=== PATIENT | male | born 1975 | race Caucasian/White ===

== ENCOUNTER 2024-11-30 20:11 | Observation (INO) ==
--- NOTE | 2024-11-30 20:58 | Emergency Department Note ---
Impression & Plan Pulmonary embolism, Acute deep vein thrombosis of upper extremity, Thrombocytosis, Pseudohyponatremia, Acute hyperglycemia, Hypoalbuminemia ED Provider Note NAME: ANABELLA QUEEN AGE: 49 SEX: M : 1975 ARRIVES VIA: Walk-In INFORMANT: Patient, family ED PROVIDER(S): Germán Adkins DO CHIEF COMPLAINT: chest pain HPI: This is a 49-year-old male with the PMHx of tobacco use disorder and chronic back pain presenting to [facility] for further evaluation of right-sided shoulder and chest pain. Patient is accompanied by his family who provide additional history. Patient states he has had worsening right posterior shoulder pain that now radiates into the anterior chest wall on the right. Patient states that he was seen in [facility] overnight. He states that he had 2 syncopal episodes leading to the evaluation in the emergency department. He states that he was told that he had a blood clot that was moving towards his lungs. He states they recommended to admit him but he wanted to come here instead They deny fever or chills. No cough or congestion. Denies chest pain or palpitations. No shortness of breath. They deny abdominal pain, nausea and vomiting. No urinary complaints. No recent changes in bowel movements. Patient denies recent changes in medications or OTC supplements. Patient offers no other complaints, today. ADDITIONAL HISTORY OBTAINED: Per HPI Chronic Medical/Social Conditions Affecting Care: Per HPI PAST MEDICAL HISTORY: See Below PAST SURGICAL HISTORY: See Below FAMILY HISTORY: See Below SOCIAL HISTORY: See Below HOME MEDICATIONS: See Below ALLERGIES: See Below VITALS: See Below PHYSICAL EXAMINATION: GENERAL: Sitting up in bed, alert, well appearing, well nourished, no distress, non-toxic EYE EXAM: normal conjunctiva. PERRL and EOM's grossly intact. OROPHARYNX: no exudate, no erythema, lips, buccal mucosa, and tongue normal and mucous membranes are moist NECK: supple, no nuchal rigidity, no adenopathy, non-tender LUNGS: Clear to auscultation. Normal chest wall mechanics HEART: no murmurs, tachycardic rate, regular rhythm ABDOMEN: abdomen soft, non-tender, no masses, no rebound or guarding. BACK: Back is symmetrical on inspection and there is no deformity, no midline tenderness, no CVA tenderness. SKIN: no rashes and no bruising UPPER EXTREMITIES: upper extremities are grossly normal. LOWER EXTREMITIES: No pitting edema. NEURO EXAM: Normal sensorium, GCS 15, normal speech, no gross weakness of arms, no gross weakness of legs. MEDICAL DECISION MAKING: Differential diagnoses includes but not limited to ACS, stable vs unstable angina, dysrhythmia, viral URI, pneumonia, pericarditis, pneumothorax, costochondritis, MSK strain, PE, hypertensive emergency, psychological causes, esophageal reflux, gastritis In summary, this is a 49 year old male who presented with chest pain. Differential as above. Nursing notes and pertinent past medical records reviewed. Vital signs reviewed and the patient is borderline hypotensive and tachycardic. The patient is otherwise afebrile and hemodynamically stable. He appears in no acute respiratory distress. History and presentation revealed recent evaluation at [facility]. Physical examination revealed as above. As a result of my initial evaluation, we will plan to repeat CT PE study today given concerns for possible pulmonary embolism as well as basic lab work. I have requested records via the ED private secretary from [facility] regarding his visit last night. Diagnostics interpreted by me include EKG and cardiac monitoring as listed below: -Cardiac Monitoring: An order was placed for continuous cardiac monitoring. The monitor shows a rate of [] with [] rhythm. -ECG: EKG independently turbid by me reveals sinus tachycardia at a rate of [address] segment changes to suggest STEMI. Intervals are otherwise within normal limits. Patient completed laboratory studies and imaging. Results independently interpreted by me are mild leukocytosis, anemia and thrombocytosis. No coagulopathy otherwise. Patient does have pseudohyponatremia secondary to hyperglycemia. Mild elevation in alkaline phosphatase. LFTs are otherwise within normal limits. Hypoalbuminemia present. Electrolytes are otherwise unremarkable. Troponin and BNP are reassuring. The patient was managed with IV fentanyl for pain control with improvement on reevaluation. Stat rad did place a phone call to me and we discussed the case. Patient has a right upper extremity DVT within the brachial vein. Also has a right lower lobe pulmonary embolism without evidence of right heart strain. Given the patient's borderline hypotension as well as tachycardia and chest pain, I am concerned that he has severe symptoms regarding his pulmonary embolism. See PESI score below. As well as coagulopathy and thrombocytosis, there are multiple indications for admission. PESI Score Age: 49 Male gender: 10 pt History of cancer: 30 pt Heart failure: 0 Chronic lung disease: 0 Pulse >=100/min: 20 pt Systolic blood pressure <100 mmH pt Respiratory rate >=0/min: 0 Temperature <36 Celcius: 0 Altered mental status: 0 Arterial oxygen saturation <90 percent: 0 Total: 90 Class I Low risk <66 Class II 66 to 85 Class III High risk 86 to 105 Class IV 106 to 125 Class V >125 Outside records from [facility] and independently reviewed by me including ED documentation. It appears the patient had arrived for multiple syncopal episodes and has been dealing with acute on chronic back pain. Pain has been severe. The patient was borderline hypotensive as well as tachycardic at that visit. Labs reviewed showed a mild lactic acidosis as well as pseudohyponatremia, anemia, thrombocytosis and hyperglycemia. MDM documentation from the outside facility shows that the patient was found to have an acute right sided pulmonary embolism as well as DVT as well as concerns for possible metastatic cancer on the CT abdomen. The patient ultimately signed out AGAINST MEDICAL ADVICE while at [facility]. CT abdomen of the pelvis interpretation includes nodularity of the anterior omentum concerning for carcinomatosis/malignancy as well as diffuse mesenteric and retroperitoneal lymph nodes. Heparin infusion with bolus was started for DVT/PE. Ultimately, the decision was made to admit the patient for acute pulmonary embolism as well as upper extremity DVT and significant thrombocytosis with concerns for metastatic cancer in the abdomen. I discussed the case with the hospitalist service via telephone/[employer] and they are agreeable to admit the patient to their services by Dr. Lopez. Based on the above, including the patient's age, coexisting illnesses, labs, imaging, and exam findings the decision to treat as an inpatient. I discussed the patient with the hospitalist team who recommended admission to their services. They received the medications, treatments, interventions indicated above and their condition remained guarded. I discussed my findings with the patient and their family and they understand and agree with the treatment plan. All patient / family questions were answered to their satisfaction. Consults/Care Managements Discussions: Per MDM ER treatment provided: See above Procedures:none Critical Care: I have personally spent 40 minutes of critical care time in direct management of this patient. This includes bedside care, interpretation of diagnostic studies, and testing, discussion with consultants, patient, and family members, and other require inpatient management activities. This 40 minutes is in excess of all separately billable procedures. The chart was completed utilizing [employer] Speech voice recognition software. Grammatical errors, random word insertions, pronoun errors, and incomplete sentences are an occasional consequence of this system due to software limitations, ambient noise, and hardware issues. Any formal questions or concerns about the content, text, or information contained within the body of this dictation should be directly addressed to the physician for clarification. Past Med/Surg History Problem List Hypoalbuminemia (Acute) Acute hyperglycemia (Acute) Pseudohyponatremia (Acute) Thrombocytosis (Acute) Acute deep vein thrombosis of upper extremity (Acute) Pulmonary embolism (Acute) Back pain (Acute) Left leg weakness (Acute) Acute lumbar radiculopathy (Acute) Back pain (Acute) Encounter for pre-operative examination Medical History DM type 2 (diabetes mellitus, type 2) HLD (hyperlipidemia) Chronic left-sided low back pain Surgical History History of tooth extraction History of inguinal hernia repair History of colonoscopy Family History Other No family history of adverse response to anesthesia Social History Smoking Status: Current every day smoker Tobacco Type: Cigarettes Cigarettes Per Day: 1 ppd; Second Hand Exposure: Yes ( smokes); Do You Dip or Chew Tobacco: No (quit); Hx Alcohol Use: Yes Hx Substance Use: No Preferred Language: Sami Communication Ability: Effective [employer]allurg[employer] Laboratory Technician Required: No Beliefs That Will Affect Care: None Current Living Situation: Family Feels Safe at Home: Yes Assistive Devices: Denture - Upper, Glasses and Walker Allergies Allergies Allergy/AdvReac Type Severity Reaction Status Date / Time No Known Allergies Allergy Verified 08/20/24 19:50 Home Meds Home Medications Medication Instructions Recorded Confirmed pravastatin 20 mg tablet 20 mg PO QAM 05/17/22 11/30/24 metformin 500 mg tablet,extended 500 mg PO BIDM 05/11/24 11/30/24 release 24 hr acetaminophen 500 mg tablet 1,000 mg PO Q6H PRN PAIN/FEVER 08/20/24 11/30/24 (Tylenol Extra Strength) insulin glargine U-300 conc 300 30 unit subcut HS 11/19/24 11/30/24 unit/mL (3 mL) subcutaneous pen (Toujeo Max U-300 SoloStar) omeprazole 20 mg capsule,delayed 20 mg PO QAM 11/19/24 11/30/24 release duloxetine 60 mg capsule,delayed 60 mg PO BID 11/30/24 11/30/24 release oxycodone-acetaminophen 5 mg-325 1 tab PO Q6 PRN pain,severe 11/30/24 11/30/24 mg tablet (Percocet) Results & Data (ED) Vital Signs Vital Signs - 24 hr 11/30/24 20:14 11/30/24 20:23 11/30/24 20:33 Temperature 36.7 C Temperature Source Oral Pulse Rate 133 H 113 H 114 H Pulse Rate [Left Apical] Respiratory Rate 20 16 Respiratory Effort / Characteristics Non-Labored Spontaneous Respiratory Depth Normal Respiratory Pattern Regular Blood Pressure 99/59 L Blood Pressure [Right Arm] Blood Pressure Mean 72 Blood Pressure Mean [Right Arm] Blood Pressure Position Sitting Pulse Oximetry 100 98 Oxygen Delivery Method Room Air Room Air Sepsis Recent Fever Within 48 Hours No Sepsis New/Unexplained Change in Mental Status N/A Sepsis Action Taken by Nursing No Action Required 11/30/24 21:37 11/30/24 22:48 11/30/24 22:50 Temperature Temperature Source Pulse Rate Pulse Rate [Left Apical] 113 H 105 H Respiratory Rate 14 15 Respiratory Effort / Characteristics Non-Labored Spontaneous Non-Labored Spontaneous Respiratory Depth Normal Normal Respiratory Pattern Regular Regular Blood Pressure Blood Pressure [Right Arm] 108/73 104/71 Blood Pressure Mean Blood Pressure Mean [Right Arm] 84 82 Blood Pressure Position Pulse Oximetry 95 94 Oxygen Delivery Method Room Air Room Air Room Air Sepsis Recent Fever Within 48 Hours Sepsis New/Unexplained Change in Mental Status Sepsis Action Taken by Nursing 11/30/24 23:30 12/01/24 00:00 12/01/24 00:18 Temperature Temperature Source Pulse Rate 103 H 106 H 118 H Pulse Rate [Left Apical] Respiratory Rate 20 18 Respiratory Effort / Characteristics Respiratory Depth Respiratory Pattern Blood Pressure 123/74 117/72 Blood Pressure [Right Arm] Blood Pressure Mean 81 89 Blood Pressure Mean [Right Arm] Blood Pressure Position Pulse Oximetry 93 95 Oxygen Delivery Method Sepsis Recent Fever Within 48 Hours Sepsis New/Unexplained Change in Mental Status Sepsis Action Taken by Nursing 12/01/24 01:00 Temperature Temperature Source Pulse Rate 108 H Pulse Rate [Left Apical] Respiratory Rate 16 Respiratory Effort / Characteristics Respiratory Depth Respiratory Pattern Blood Pressure 121/71 Blood Pressure [Right Arm] Blood Pressure Mean 87 Blood Pressure Mean [Right Arm] Blood Pressure Position Pulse Oximetry 94 Oxygen Delivery Method Sepsis Recent Fever Within 48 Hours Sepsis New/Unexplained Change in Mental Status Sepsis Action Taken by Nursing Laboratory Data 11/30/24 20:33 11/30/24 20:33 Lab Results 11/30/24 11/30/24 Range/Units 20:33 21:07 WBC 12.98 H (4.8-10.8) K/ul RBC 4.08 L (4.70-6.10) M/uL Hgb 8.2 L (14.0-18.0) g/dl Hct 27.7 L (42.0-52.0) % MCV 67.9 L (80.0-100.0) fL MCH 20.1 L (25.0-34.0) pg MCHC 29.6 L (32.0-36.0) g/dL RDW Std Deviation 41.3 (36.4-46.3) fL RDW Coeff of Cheng 17.2 H (11.5-14.5) % Plt Count 1060 H* (130-400) K/uL MPV 8.5 L (9.4-12.4) fL Immature Gran % (Auto) 0.8 % Neut % (Auto) 76.8 % Lymph % (Auto) 12.2 % [place] % (Auto) 9.7 % Eos % (Auto) 0.3 % Baso % (Auto) 0.2 % Neut # (Auto) 9.95 H (1.40-6.50) K/uL Lymph # (Auto) 1.59 (1.20-3.40) K/uL [place] # (Auto) 1.26 H (0.11-0.59) K/uL Eos # (Auto) 0.04 (0.00-0.50) K/uL Baso # (Auto) 0.03 (0.00-0.20) K/uL Immature Gran # (Auto) 0.11 (0.01-0.20) K/uL Polychromasia 1+ Microcytosis Present PT 11.9 (9.0-12.0) Seconds INR 1.1 (0.9-1.1) APTT 35 H (21-31) Seconds PTT Ratio 1.3 VBG pH 7.44 H (7.36-7.41) VBG pCO2 41 (38-50) mmHg VBG pO2 28 mmHg VBG HCO3 28 mmol/L VBG O2 Saturation < 60.0 % VBG Base Excess 3.3 mEq/L Sodium 132 L (136-145) mmol/L Potassium 4.2 (3.5-5.1) mmol/L Chloride 92 L (98-107) mmol/L Carbon Dioxide 26 (21-32) mmol/L Anion Gap 14 H (3-11) BUN 7 (6-23) mg/dl Creatinine 0.60 (0.6-1.4) mg/dl Est Cr Clr Drug Dosing Not Reportable eGFR 119.82 BUN/Creatinine Ratio 11.7 (10-20) Glucose 279 H (70-99(Fasting)) mg/dl Calcium 8.9 (8.6-10.3) mg/dl Magnesium 1.8 (1.7-2.4) mg/dl Total Bilirubin 0.3 (0.2-1.0) mg/dl AST 28 (13-39) U/L ALT 33 (7-52) U/L Alkaline Phosphatase 241 H (34-104) U/L Troponin I High Sens 4.8 (0-20) pg/ml B-Natriuretic Peptide 44 (0-100) pg/ml Total Protein 7.5 (6.0-8.3) gm/dl Albumin 2.6 L (3.4-5.0) gm/dl Globulin 4.9 H (2.5-4.0) gm/dl Albumin/Globulin Ratio 0.5 L (0.9-2) Lipase 13 (11-82) U/L Administered Medications Discontinued Medications Fentanyl Citrate (Fentanyl Citrate Pf 100 Mcg/2 Ml Vial) 75 mcg IV NOW STA Stop: 11/30/24 21:32 Last Admin: 11/30/24 21:38 Dose: 75 mcg Documented By: [facility] Heparin Sodium (Porcine) (Heparin Sod (Porcine) 1000 Unit/Ml) 1 units IV NOW ONE Stop: 12/01/24 00:48 Last Admin: 12/01/24 02:26 Dose: Not Given Documented By: AMELIE Sodium Chloride (Nss) 1,000 mls @ 100 mls/hr IV .Q10H ONE Stop: 12/01/24 10:53 Last Admin: 12/01/24 01:04 Dose: Not Given Documented By: ANGE Ioversol (Optiray 320 125ml) 115 ml IV ONCE ONE Stop: 11/30/24 21:48 Last Admin: 11/30/24 21:47 Dose: 115 ml Documented By: HUA Imaging Data Radiologist's Impression: Chest X-Ray 11/30/24 20:20 Chest radiograph, one view History: Chest pain Comparison: None Findings: Single AP view of the chest performed. No focal consolidation or pleural effusion. No pneumothorax. The cardiomediastinal silhouette is within normal limits. Normal pulmonary vascularity. No evidence for lymphadenopathy. No visualized bony or soft tissue abnormality. Impression: Normal chest radiograph Electronically signed by Terrance Brock 11-30-2024 8:57 PM Chest CTA 11/30/24 20:45 CR Exam(s): CTA CHEST IV Amt: 115 ml optiray 320 EXAM: CT Angiography Chest With Intravenous Contrast CLINICAL HISTORY: Reason for exam: PE. TECHNIQUE: Axial computed tomographic angiography images of the chest with intravenous contrast. CTDI is 19.99 mGy and DLP is 690.49 mGy-cm. Automated exposure control was utilized for the study. A dose lowering technique was utilized adhering to the principles of ALARA. MIP reconstructed images were created and reviewed. COMPARISON: No relevant prior studies available. FINDINGS: Pulmonary arteries: Acute subsegmental PE in the right lower lobe. Aorta: No acute findings. Normal caliber. No dissection. Other veins: Fat stranding around the right brachial vein suspicious for DVT. Lungs: Atelectasis in the right lower lobe. No pulmonary infarct or consolidation. Pleural space: No pleural effusion. No pneumothorax. Heart: RV to LV ratio less than 1. Small pericardial effusion. Bones/joints: No acute fracture. Soft tissues: Soft tissue edema in the right axilla.. Lymph nodes: Unremarkable. IMPRESSION: 1. Acute subsegmental PE in the right lower lobe. 2. No evidence of right heart strain. 3. Small pericardial effusion. 4. Fat stranding around the right brachial vein suspicious for DVT. Recommend right upper extremity duplex ultrasound. Communications: Call Doctor Pulmonary Embolism Electronically signed by: Jone Gomez MD 11/30/24 23:55 PM Discharge Plan Visit Data Chief Complaint: Chest Pain Stated Complaint: RIGHT SHOULDER PAIN,CHEST PAIN ED Provider: Germán Adkins Discharge Problem: Pulmonary embolism, Acute deep vein thrombosis of upper extremity, Thrombocytosis, Pseudohyponatremia, Acute hyperglycemia, Hypoalbuminemia Patient Disposition: Admitted As Inpatient Condition: Serious Discharge Instructions Interventions: ED Discharge Assessment Last Done: 12/01/24 01:32
[2024-11-30 21:13] LABS: Alanine Aminotransferase 33 U/L (7-52); Albumin Globulin Ratio 0.5 (0.9-2); Alkaline Phosphatase 241 U/L (34-104); Anion Gap 14 (3-11); Bilirubin,Total 0.3 mg/dl (0.2-1.0); Blood Urea Nitrogen 7 mg/dl (6-23); Calcium 8.9 mg/dl (8.6-10.3); Carbon Dioxide 26 mmol/L (21-32); Chloride 92 mmol/L (98-107); Globulin 4.9 gm/dl (2.5-4.0); Glucose 279 mg/dl (70-99(Fasting)); Lipase 13 U/L (11-82); Potassium 4.2 mmol/L (3.5-5.1); Sodium 132 mmol/L (136-145); Total Protein 7.5 gm/dl (6.0-8.3)
[2024-11-30 21:25] LABS: Base Excess VBG 3.3 mEq/L; HCO3 VBG 28 mmol/L; Oxygen Saturation VBG < 60.0 %; PCO2 VBG 41 mmHg (38-50); PO2 VBG 28 mmHg; pH VBG 7.44 (7.36-7.41)
[2024-11-30 21:29] LABS: Hematocrit (blood only) 27.7 % (42.0-52.0); Hemoglobin 8.2 g/dl (14.0-18.0); Immature Granulocytes # (auto) 0.11 K/uL (0.01-0.20); Immature Granulocytes % (auto) 0.8 %; Mean Corpuscular Hemoglobin 20.1 pg (25.0-34.0); Mean Corpuscular Volume 67.9 fL (80.0-100.0); RDW Standard Deviation 41.3 fL (36.4-46.3); Red Blood Count 4.08 M/uL (4.70-6.10); White Blood Count 12.98 K/ul (4.8-10.8)
[2024-11-30 21:41] LABS: Platelet Count 1060 K/uL (130-400)
[2024-11-30] MEDS: OPTIRAY 320 125ml IV ONE (21:47)
[2024-11-30 21:48] LABS: INR 1.1 (0.9-1.1); Partial Thromboplastin Time 35 Seconds (21-31); Prothrombin Time 11.9 Seconds (9.0-12.0)
[2024-11-30 22:10] LABS: Microcytosis Present; Polychromasia 1+
--- NOTE | 2024-11-30 23:56 | CT Scan Report ---
Exam(s): CTA CHEST IV Amt: 115 ml optiray 320 EXAM: CT Angiography Chest With Intravenous Contrast CLINICAL HISTORY: Reason for exam: PE. TECHNIQUE: Axial computed tomographic angiography images of the chest with intravenous contrast. CTDI is 19.99 mGy and DLP is 690.49 mGy-cm. Automated exposure control was utilized for the study. A dose lowering technique was utilized adhering to the principles of ALARA. MIP reconstructed images were created and reviewed. COMPARISON: No relevant prior studies available. FINDINGS: Pulmonary arteries: Acute subsegmental PE in the right lower lobe. Aorta: No acute findings. Normal caliber. No dissection. Other veins: Fat stranding around the right brachial vein suspicious for DVT. Lungs: Atelectasis in the right lower lobe. No pulmonary infarct or consolidation. Pleural space: No pleural effusion. No pneumothorax. Heart: RV to LV ratio less than 1. Small pericardial effusion. Bones/joints: No acute fracture. Soft tissues: Soft tissue edema in the right axilla.. Lymph nodes: Unremarkable. IMPRESSION: 1. Acute subsegmental PE in the right lower lobe. 2. No evidence of right heart strain. 3. Small pericardial effusion. 4. Fat stranding around the right brachial vein suspicious for DVT. Recommend right upper extremity duplex ultrasound. Communications: Call Doctor Pulmonary Embolism Electronically signed by: Jone Gomez MD 11/30/24 23:55 PM
[2024-12-01] MEDS: SODIUM CHLORIDE 0.9% 1,000 ML IV ONE (01:04)
[2024-12-01 01:14] LABS: Magnesium 1.8 mg/dl (1.7-2.4)
[2024-12-01] MEDS ORDERED: CARBOHYDRATES FOR HYPOGLYCEMIA PO PRN (01:31)
[2024-12-01] MEDS ORDERED: GLUCAGON FOR INJ 1 MG VIAL SQ PRN (01:31)
[2024-12-01] MEDS ORDERED: DEXTROSE 50% 50 ML SYRINGE IV PRN (01:31)
[2024-12-01] MEDS ORDERED: GLUCOSE 40% GEL 15 GM TUBE PO PRN (01:31)
[2024-12-01] MEDS ORDERED: GLUCOSE 10 TAB/TUBE PO PRN (01:31)
[2024-12-01] MEDS ORDERED: PROMETHAZINE 6.25 MG/50.25 ML BAG IV PRN (01:59)
[2024-12-01] MEDS ORDERED: ACETAMINOPHEN 500 MG TAB PO PRN (02:00)
--- NOTE | 2024-12-01 02:10 | History & Physical Report ---
Date of Service December 01, 2024 Assessment & Plan (1) Pulmonary embolism: Plan: Assessment and plan below following discussion of case with ED provider and reviewing patient history/pertinent normal/abnormal diagnostic test results. PE/upper extremity DVT First occurrence Likely from metastatic cancer, ? Prostate primary Pericardial effusion on imaging Worsening lumbar radiculopathy, history of back surgery ? Secondary to malignancy DM 2 insulin requiring, elevated BSG, unknown control Progressive anemia; leukocytosis, thrombocytosis possibly from bone marrow infiltration of malignancy ongoing tobacco abuse Admit to med/tele IV heparin Oncology consultation RE PE in the setting of probable metastatic cancer, bone marrow infiltration on imaging Check PSA TTE re: pericardial effusion Lumbar spine MRI re: worsening back pain Orthopedic spine consult (Patient known to Dr. Kang of [facility] and has a scheduled outpatient appointment this week.) Basal insulin, ISS BG goal 110-140, carb count coverage, check hemoglobin A1c Nicotine patch as needed DVT prophylaxis. IV heparin Full code Patient requesting updates providers. Michelle Baldwin, contact #[phone]. Text document was generated using Qwiki voice recognition software. It may contain grammatical or spelling errors. Kindly contact undersigned for clarification of any documentation item in question. Admission and Anticipated Discharge Date Admission Date: December 01, 2024 History of Present Illness Chief Complaint: Chest pain, blood clot Primary Care Provider: Peter Gong History obtained from patient, family, and records. Medical history significant for new diagnosis of PE/upper extremity DVT, possible metastatic cancer on outpatient imaging, DM 2 insulin requiring, chronic back pain status post surgery (2023), chronic anemia (baseline hemoglobin of 12 from July 2024), ongoing tobacco abuse. Patient with worsening low back pain with radiation to the left leg in the last 7 months. No recollection of trauma. Unquantified weight loss. No incontinence. Multiple [facility] ER visits for issue. Recent ER visit 2 weeks ago. Lumbar MRI showed 1. Diffuse abnormal low signal within the bones as can be seen in the setting of an infiltrative marrow process. 2. Mild degenerative spondylosis at L4-5 and L5-S1. Patient instructed to follow-up with PCP regarding malignancy concerns as per provider note. Patient has outpatient follow-up with [facility] spine surgeon this week. Patient unable to move as much the last week due to back pain. No fever, no chills. Achy right upper arm pain noted as well. Two witnessed syncopal events at home yesterday. Patient denies chest pain, SOB. No witnessed seizures, no headache symptoms. Patient brought to [facility] ER for evaluation. WBC 12.2, hemoglobin 8, hematocrit 26.1, platelets [address] head no acute intracranial abnormality CT lumbar spine no lumbar spine fracture, left L4-L5 subarticular disc herniation with asymmetric effacement of the lateral recess and poorly characterized mass effect upon traversing L5 nerve root. CT chest: 1. Venous thrombosis within axillary, subclavian and IJV on the right side. Acute PE lateral and posterior segmental branches right lower lobe. Minimal pericardial effusion. Lungs are unremarkable. CT abdomen pelvis showed 1. 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 Mildly prominent but diffuse mesenteric subcentimeter lymph nodes and retroperitoneal lymph nodes without evidence of bulky layne enlargement. 2. Mesenteric edema 3. Tiny sclerotic and lucent foci noted throughout spine and pelvis which may be degenerative but early osseous metastatic disease cannot be completely excluded. 4. Indeterminate left adrenal nodule measuring 21 x 20 mm. Concern for adrenal metastatic focus given consolation of findings. 5. Heart is top normal size with small to moderate size pericardial effusion. Prominent vasculature. 6. Mild hepatic steatosis/hepatomegaly. No focal hepatic lesions. 7. Mild prostate enlargement measuring 15 x 34 mm, mild elevation of base of the bladder which may be mildly thickened. Bilateral perinephric stranding. 8. Moderate stool compatible with constipation. No prior history of blood clots as per patient. Patient declined admission recommendation from ED provider. Patient had pleuritic right-sided chest pain today with SOB. Patient consulted ER for evaluation. IV heparin initiated at the ER. 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 Allergies Allergy/AdvReac Type Severity Reaction Status Date / Time No Known Allergies Allergy Verified 08/20/24 19:50 Home Medications Medication Instructions Recorded Confirmed Type pravastatin 20 mg tablet 20 mg PO QAM 05/17/22 11/30/24 History metformin 500 mg tablet,extended 500 mg PO BIDM 05/11/24 11/30/24 History release 24 hr acetaminophen 500 mg tablet 1,000 mg PO Q6H PRN PAIN/FEVER 08/20/24 11/30/24 History (Tylenol Extra Strength) insulin glargine U-300 conc 300 30 unit subcut HS 11/19/24 11/30/24 History unit/mL (3 mL) subcutaneous pen (Toujeo Max U-300 SoloStar) omeprazole 20 mg capsule,delayed 20 mg PO QAM 11/19/24 11/30/24 History release duloxetine 60 mg capsule,delayed 60 mg PO BID 11/30/24 11/30/24 History release oxycodone-acetaminophen 5 mg-325 1 tab PO Q6 PRN pain,severe 11/30/24 11/30/24 History mg tablet (Percocet) Past Med/Surg History Problem List Hypoalbuminemia (Acute) Acute hyperglycemia (Acute) Pseudohyponatremia (Acute) Thrombocytosis (Acute) Acute deep vein thrombosis of upper extremity (Acute) Pulmonary embolism (Acute) Back pain (Acute) Left leg weakness (Acute) Acute lumbar radiculopathy (Acute) Back pain (Acute) Encounter for pre-operative examination Medical History DM type 2 (diabetes mellitus, type 2) HLD (hyperlipidemia) Chronic left-sided low back pain Surgical History History of tooth extraction History of inguinal hernia repair History of colonoscopy Family History Other No family history of adverse response to anesthesia Social History Smoking Status: Current every day smoker Tobacco Type: Cigarettes Cigarettes Per Day: 1 ppd; Second Hand Exposure: Yes ( smokes); Do You Dip or Chew Tobacco: No; Hx Alcohol Use: Yes Alcohol type: beer and hard liquor Hx Substance Use: No Preferred Language: Spanish Communication Ability: Effective Employee Training Specialist Required: No Beliefs That Will Affect Care: None Current Living Situation: Spouse Feels Safe at Home: Yes Assistive Devices: Denture - Upper, Denture - Lower and Glasses Review of Systems Review of Systems: As per HPI, all other systems reviewed and negative Physical Exam Physical Exam: GENERAL: Anxious, tearful, looks older than stated age, no respiratory distress SKIN: Pallor, warm HEENT: Pale palpebral conjunctivae, no ptosis, dry buccal mucosa NECK : Supple, no tenderness CHEST : CTA, no tenderness HEART : Tachycardic, no obvious murmurs ABDOMEN: Some distention, nontender BACK : Low back tenderness, limited SLR left EXTREMITIES : Minimal RUE tenderness, no LE swelling/tenderness, palpable pulses, no other conspicuous deformities noted NEUROLOGIC : Coherent, no facial asymmetry, no other gross focality Results & Data Results & Data Vital Signs (Past 12 Hours) Vital Signs Temp Pulse Pulse Resp BP BP Pulse Ox 12/01/24 01:30 105 H 16 120/79 95 12/01/24 01:00 108 H 16 121/71 94 12/01/24 00:18 118 H 12/01/24 00:00 106 H 18 117/72 95 11/30/24 23:30 103 H 20 123/74 93 11/30/24 22:50 105 H 15 104/71 94 11/30/24 22:48 11/30/24 21:37 113 H 14 108/73 95 11/30/24 20:33 114 H 16 98 11/30/24 20:23 113 H 11/30/24 20:14 36.7 C 133 H 20 99/59 L 100 O2 Del Method 12/01/24 01:30 12/01/24 01:00 12/01/24 00:18 12/01/24 00:00 11/30/24 23:30 11/30/24 22:50 Room Air 11/30/24 22:48 Room Air 11/30/24 21:37 Room Air 11/30/24 20:33 Room Air 11/30/24 20:23 11/30/24 20:14 Room Air Laboratory Results Laboratory Results WBC 12.98 K/ul (4.8-10.8) H 11/30/24 20:33 RBC 4.08 M/uL (4.70-6.10) L 11/30/24 20:33 Hgb 8.2 g/dl (14.0-18.0) L 11/30/24 20:33 Hct 27.7 % (42.0-52.0) L 11/30/24 20:33 MCV 67.9 fL (80.0-100.0) L 11/30/24: MCH 20.1 pg (25.0-34.0) L 11/30/24: MCHC 29.6 g/dL (32.0-36.0) L 11/30/24: RDW Std Deviation 41.3 fL (36.4-46.3) 11/30/24: RDW Coeff of Cheng 17.2 % (11.5-14.5) H 11/30/24: Plt Count 1060 K/uL (130-400) H* 11/30/24: MPV 8.5 fL (9.4-12.4) L 11/30/24: Immature Gran % (Auto) 0.8 % 11/30/24: Neut % (Auto) 76.8 % 11/30/24 20: Lymph % (Auto) 12.2 % 11/30/24: Meigs % (Auto) 9.7 % 11/30/24: Eos % (Auto) 0.3 % 11/30/24: Baso % (Auto) 0.2 % 11/30/24: Neut # (Auto) 9.95 K/uL (1.40-6.50) H 11/30/24 20: Lymph # (Auto) 1.59 K/uL (1.20-3.40) 11/30/24 20: Meigs # (Auto) 1.26 K/uL (0.11-0.59) H 11/30/24 20: Eos # (Auto) 0.04 K/uL (0.00-0.50) 11/30/24: Baso # (Auto) 0.03 K/uL (0.00-0.20) 11/30/24: Immature Gran # (Auto) 0.11 K/uL (0.01-0.20) 11/30/24: Polychromasia 1+ 11/30/24 20: Microcytosis Present 11/30/24: PT 11.9 Seconds (9.0-12.0) 09/07/25 20:33 INR 1.1 (0.9-1.1) 11/30/24 20:33 APTT 35 Seconds (21-31) H 11/30/24 20:33 PTT Ratio 1.3 11/30/24 20:33 VBG pH 7.44 (7.36-7.41) H 11/30/24 21:07 VBG pCO2 41 mmHg (38-50) 11/30/24 21:07 VBG pO2 28 mmHg 11/30/24 21:07 VBG HCO3 28 mmol/L 11/30/24 21:07 VBG O2 Saturation < 60.0 % 11/30/24 21:07 VBG Base Excess 3.3 mEq/L 11/30/24 21:07 Sodium 132 mmol/L (136-145) L 11/30/24 20:33 Potassium 4.2 mmol/L (3.5-5.1) 11/30/24 20:33 Chloride 92 mmol/L (98-107) L 11/30/24 20:33 Carbon Dioxide 26 mmol/L (21-32) 11/30/24 20:33 Anion Gap 14 (3-11) H 11/30/24 20:33 BUN 7 mg/dl (6-23) 11/30/24 20:33 Creatinine 0.60 mg/dl (0.6-1.4) 11/30/24 20:33 Est Cr Clr Drug Dosing Not Reportable 11/30/24 20:33 eGFR 119.82 11/30/24 20:33 BUN/Creatinine Ratio 11.7 (10-20) 11/30/24 20:33 Glucose 279 mg/dl (70-99(Fasting)) H 11/30/24 20:33 Calcium 8.9 mg/dl (8.6-10.3) 11/30/24 20:33 Magnesium 1.8 mg/dl (1.7-2.4) 11/30/24 20:33 Total Bilirubin 0.3 mg/dl (0.2-1.0) 11/30/24 20:33 AST 28 U/L (13-39) 11/30/24 20:33 ALT 33 U/L (7-52) 11/30/24 20:33 Alkaline Phosphatase 241 U/L (34-104) H 11/30/24 20:33 Troponin I High Sens 4.8 pg/ml (0-20) 11/30/24 20:33 B-Natriuretic Peptide 44 pg/ml (0-100) 11/30/24 21:07 Total Protein 7.5 gm/dl (6.0-8.3) 11/30/24 20:33 Albumin 2.6 gm/dl (3.4-5.0) L 11/30/24 20:33 Globulin 4.9 gm/dl (2.5-4.0) H 11/30/24 20:33 Albumin/Globulin Ratio 0.5 (0.9-2) L 11/30/24 20:33 Lipase 13 U/L (11-82) 11/30/24 20:33 Impressions Chest X-Ray 11/30/24 20:20 Chest radiograph, one view History: Chest pain Comparison: None Findings: Single AP view of the chest performed. No focal consolidation or pleural effusion. No pneumothorax. The cardiomediastinal silhouette is within normal limits. Normal pulmonary vascularity. No evidence for lymphadenopathy. No visualized bony or soft tissue abnormality. Impression: Normal chest radiograph Electronically signed by Terrance Brock 11-30-2024 8:57 PM Chest CTA 11/30/24 20:45 CR Exam(s): CTA CHEST IV Amt: 115 ml optiray 320 EXAM: CT Angiography Chest With Intravenous Contrast CLINICAL HISTORY: Reason for exam: PE. TECHNIQUE: Axial computed tomographic angiography images of the chest with intravenous contrast. CTDI is 19.99 mGy and DLP is 690.49 mGy-cm. Automated exposure control was utilized for the study. A dose lowering technique was utilized adhering to the principles of ALARA. MIP reconstructed images were created and reviewed. COMPARISON: No relevant prior studies available. FINDINGS: Pulmonary arteries: Acute subsegmental PE in the right lower lobe. Aorta: No acute findings. Normal caliber. No dissection. Other veins: Fat stranding around the right brachial vein suspicious for DVT. Lungs: Atelectasis in the right lower lobe. No pulmonary infarct or consolidation. Pleural space: No pleural effusion. No pneumothorax. Heart: RV to LV ratio less than 1. Small pericardial effusion. Bones/joints: No acute fracture. Soft tissues: Soft tissue edema in the right axilla.. Lymph nodes: Unremarkable. IMPRESSION: 1. Acute subsegmental PE in the right lower lobe. 2. No evidence of right heart strain. 3. Small pericardial effusion. 4. Fat stranding around the right brachial vein suspicious for DVT. Recommend right upper extremity duplex ultrasound. Communications: Call Doctor Pulmonary Embolism Electronically signed by: Jone Gomez MD 11/30/24 23:55 PM Diagnostic Findings EKG as per my interpretation :Rate 115, sinus tachycardia, normal axis, no ischemia Code Status & VTE Plan VTE Prophylaxis Plan VTE Prophylaxis will be ordered: Yes
[2024-12-01] MEDS: HEPARIN SOD (PORCINE) 1000 UNIT/ML IV ONE ×2 (02:26→10:14)
[2024-12-01] MEDS: LIDOCAINE 5% 1 PATCH TD SCH (02:40)
[2024-12-01] MEDS: HEPARIN 25000 UNIT/500 ML D5W 25,000 UNITS/500 ML BAG IV SCH (02:41)
[2024-12-01] MEDS: Heparin IV Adult Wt-Based Standard w/ INITIAL Bolus Protocol IV STA (02:42)
[2024-12-01] MEDS: LACTATED RINGER'S 1,000 ML IV ONE (02:42)
[2024-12-01] MEDS: MAGNESIUM SULFATE / D5W 1 GM/100 ML BAG IV ONE (02:42)
[2024-12-01] MEDS: INSULIN ASPART PER UNIT CHARGE SC SCH (02:53)
[2024-12-01] MEDS: GADOBUTROL 10ML VIAL IV ONE (03:27)
[2024-12-01] MEDS: LANTUS PER UNIT CHARGE SQ STA (03:44)
[2024-12-01 04:13] LABS: Hematocrit (blood only) 23.9 % (42.0-52.0); Hemoglobin 7.0 g/dl (14.0-18.0); Immature Granulocytes # (auto) 0.14 K/uL (0.01-0.20); Immature Granulocytes % (auto) 1.1 %; Mean Corpuscular Hemoglobin 19.7 pg (25.0-34.0); Mean Corpuscular Volume 67.3 fL (80.0-100.0); RDW Standard Deviation 41.5 fL (36.4-46.3); Red Blood Count 3.55 M/uL (4.70-6.10); Reticulocytes # 0.060 10^6/uL (0.020-0.100); White Blood Count 13.29 K/ul (4.8-10.8)
[2024-12-01 04:27] LABS: Anion Gap 9.0 (3-11); Blood Urea Nitrogen 8.0 mg/dl (6-23); Calcium 8.5 mg/dl (8.6-10.3); Carbon Dioxide 30.0 mmol/L (21-32); Chloride 94.0 mmol/L (98-107); Creatinine Clr Calc Pharmacy 215.0 ml/min; Glucose 182.0 mg/dl (70-99(Fasting)); Potassium 3.6 mmol/L (3.5-5.1); Sodium 133.0 mmol/L (136-145)
[2024-12-01] MEDS ORDERED: POLYETHYLENE (MIRALAX) 17 GM PACK PO PRN (04:28)
[2024-12-01 04:33] LABS: Hypochromasia Present; Microcytosis Present; Platelet Count 992 K/uL (130-400); Polychromasia 1+
--- NOTE | 2024-12-01 04:35 | Magnetic Resonance Report ---
EXAM: MR lumbar spine wo/w con CLINICAL HISTORY: worsening back pain, poss marrow infilration TECHNIQUE: Different pulse sequences were performed in different planes for the lumbar spine without and with contrast (8cc gadavist ). Images were sent through PACs for diagnostic interpretation. COMPARISON: prior MRI lumbar spine dated 11/19/2024, 08/20/2024 and 05/11/2024 FINDINGS: Vertebral Alignment: Normal alignment of the lumbar spine without evidence of fracture or malalignment. No evidence of scoliosis is observed. Vertebral Bodies and Intervertebral Discs: Abnormal low marrow signal along the visualized bone; which can be attributed to red marrow reconversion versus marrow infiltrative process . No enhancing focal bone marrow lesions. Degenerative marrow changes Modic II at L4 and L5. L5 and T12 vertebral body hemangiomas. Normal vertebral body height, no fracture identified. No lytic or sclerotic lesions. Intervertebral discs demonstrate lower lumbar spondylodegenerative changes at L4-L5 and L5 ?S1 manifested by disc desiccation . Iopsc-uj-uridn analysis: T12-L1: There is no significant disc pathology. No spinal canal stenosis. No neural foraminal stenosis. No ligamentum flavum hypertrophy and facet joint arthropathy. L1-L2: There is no significant disc pathology. No spinal canal stenosis. No neural foraminal stenosis. No ligamentum flavum hypertrophy and facet joint arthropathy. L2-L3: There is no significant disc pathology. No spinal canal stenosis. No neural foraminal stenosis. No ligamentum flavum hypertrophy and facet joint arthropathy. L3-L4: There is no significant disc pathology. No spinal canal stenosis. No neural foraminal stenosis. No ligamentum flavum hypertrophy and facet joint arthropathy. L4-L5: previous intervention with left sided partial laminectomy. Diffuse disc bulge showing left para-central disc herniation about 7.5 mm in AP dimension with mild inferior migration associated with surrounding enhancing granulation tissue , with facet joint arthrosis and hypertrophied ligamenta flava causing narrowing of the left lateral recess with compression of the left L5 traversing nerve root as well as mild bilateral neural foraminal stenosis. No spinal canal stenosis. L5-S1: diffuse disc bulge showing broad-based central and right para-central disc herniation about 8.5 mm in AP dimension and 2.5 cm in ML dimension; coupled with mild facet joint arthrosis and hypertrophied ligamenta flava ; causing mild anterior thecal indentation and mild bilateral neural foraminal stenosis. No spinal canal stenosis. Spinal Cord and Nerve Roots: Conus medullaris terminates at the L1 level without abnormality. Nerve roots appear unremarkable bilaterally. The lower thoracic spinal cord, conus medullaris, and cauda equina nerve roots are unremarkable. Soft Tissues: Paraspinal soft tissues appear normal without evidence of abnormal signal intensity or mass lesions. IMPRESSION: 1. Abnormal low marrow signal along the visualized bones; which can be attributed to red marrow reconversion versus marrow infiltrative process . No enhancing focal bone marrow lesions. 2. Lower lumbar spondylodegenerative changes at L4-L5 and L5 ?S1. 3. L4-L5: previous intervention with left sided partial laminotomy. Diffuse disc bulge showing left para-central disc herniation about 7.5 mm in AP dimension with mild inferior migration associated with surrounding enhancing granulation tissue , with facet joint arthrosis and hypertrophied ligamenta flava causing narrowing of the left lateral recess with compression of the left L5 traversing nerve root as well as mild bilateral neural foraminal stenosis. No spinal canal stenosis. 4. L5-S1: diffuse disc bulge showing broad-based central and right para-central disc herniation about 8.5 mm in AP dimension and 2.5 cm in ML dimension; coupled with mild facet joint arthrosis and hypertrophied ligamenta flava ; causing mild anterior thecal indentation and mild bilateral neural foraminal stenosis. No spinal canal stenosis. 5. These changes remain stationary since prior study dated 11/19/2024. Electronically signed by Alirio Montiel 12-01-2024 04:35 AM
[2024-12-01 04:40] LABS: ANTI-Xa, UFH(UnfractionatedHep 0.13 IU/ml (0.3-0.7)
[2024-12-01 04:42] LABS: Thyroid Stimulating Hormone 4.195 uIu/ml (0.300-4.500)
[2024-12-01 05:32] LABS: Folate (Folic Acid),Ser orPlas 7.41 ng/ml (>5.38)
[2024-12-01 05:33] LABS: Vitamin B12 235.0 pg/ml (180-914)
[2024-12-01 05:39] LABS: Ferritin 805.1 ng/ml (8-388)
--- NOTE | 2024-12-01 05:50 | Communication Note ---
Date of Service: December 01, 2024 A.m. hemoglobin down to 7 from 8.2 yesterday No overt bleeding, FOBT done at bedside negative AP Progressive anemia Follow H&H, transfuse PRBC if hemoglobin less than 7
[2024-12-01 07:00] LABS: Iron 10.0 mcg/dl (35-175); Transferrin 150.0 mg/dl (200-360)
[2024-12-01 08:23] LABS: Hematocrit (blood only) 25.1 % (42.0-52.0); Hemoglobin 7.3 g/dl (14.0-18.0)
[2024-12-01] MEDS: PRAVASTATIN SOD 20 MG TAB PO SCH (09:08)
[2024-12-01] MEDS: DOCUSATE SODIUM/SENNA 50/8.6MG TAB PO SCH (09:10)
[2024-12-01 09:17] LABS: Hemoglobin A1C 11.7 % (4.5-5.6)
[2024-12-01 09:57] LABS: ANTI-Xa, UFH(UnfractionatedHep 0.10 IU/ml (0.3-0.7)
--- NOTE | 2024-12-01 11:37 | Ultrasound Report ---
US carotid doppler BI CLINICAL HISTORY: 49 years-old Male with Syncope. Acute syncope COMPARISON: CTA chest 11/30/2024 TECHNIQUE: Multiple real time sonographic images of the carotid bifurcations were obtained assessing garcia scale, color Doppler and spectral wave form appearance FINDINGS: RIGHT CAROTID: The peak systolic velocity measured in the right ICA is 96 cm/sec. The end diastolic velocity measured 33 cm/sec. The ICA to CCA ratio measured 1.0 which correlates with a stenosis of 0-50%. Mild atherosclerosis. LEFT CAROTID: The peak systolic velocity measured in the left ICA is 118 cm/sec. The end diastolic velocity measured 27 cm/sec. The ICA to CCA ratio measured 1.0 which correlates with a stenosis of 0- 50%. Mild atherosclerosis. There is normal antegrade vertebral flow bilaterally. Occlusive thrombus within the right internal ju gular vein incidentally noted. IMPRESSION: 1. No hemodynamically significant stenosis or significant atherosclerotic plaquing. 2. Normal antegrade vertebral flow bilaterally. 3. Thrombus of the right internal jugular vein. Dedicated right upper extremity Doppler recommended. ACT 112: Negative or not required by law. The above report was generated using voice recognition software. It may contain grammatical, syntax o r spelling errors. Electronically signed by: Aleksander Hein M.D. 12/01/2024 11:36 AM
[2024-12-01 11:53] LABS: Appearance Urine Clear (Clear); Glucose Urine UA Negative (Negative)
--- NOTE | 2024-12-01 12:38 | Electrocardiogram Report ---
Test Reason : Blood Pressure : */* mmHG Vent. Rate : 113 BPM Atrial Rate : 113 BPM P-R Int : 118 ms QRS Dur : 74 ms QT Int : 322 ms P-R-T Axes : 45 44 74 degrees QTcB Int : 441 ms Sinus tachycardia Otherwise normal ECG When compared with ECG of 26-Oct-2024 19:48, No significant change was found Confirmed by Hector Spencer ([id number]) on 12/01/2024 12:38:10 PM Referred By: REFERRED SELF Confirmed By: Hector Spencer
--- NOTE | 2024-12-01 12:52 | Discharge Summary ---
Date of Service December 01, 2024 Admission HPI Per Admitting Provider History obtained from patient, family, and records. Medical history significant for new diagnosis of PE/upper extremity DVT, possible metastatic cancer on outpatient imaging, DM 2 insulin requiring, chronic back pain status post surgery (2023), chronic anemia (baseline hemoglobin of 12 from July 2024), ongoing tobacco abuse. Patient with worsening low back pain with radiation to the left leg in the last 7 months. No recollection of trauma. Unquantified weight loss. No incontinence. Multiple [facility] ER visits for issue. Recent ER visit 2 weeks ago. Lumbar MRI showed 1. Diffuse abnormal low signal within the bones as can be seen in the setting of an infiltrative marrow process. 2. Mild degenerative spondylosis at L4-5 and L5-S1. Patient instructed to follow-up with PCP regarding malignancy concerns as per provider note. Patient has outpatient follow-up with [facility] this week. Patient unable to move as much the last week due to back pain. No fever, no chills. Achy right upper arm pain noted as well. Two witnessed syncopal events at home yesterday. Patient denies chest pain, SOB. No witnessed seizures, no headache symptoms. Patient brought to [facility] ER for evaluation. WBC 12.2, hemoglobin 8, hematocrit 26.1, platelets [address] head no acute intracranial abnormality CT lumbar spine no lumbar spine fracture, left L4-L5 subarticular disc herniat ion with asymmetric effacement of the lateral recess and poorly characterized mass effect upon traversing L5 nerve root. CT chest: 1. Venous thrombosis within axillary, subclavian and IJV on the right side. Acute PE lateral and posterior segmental branches right lower lobe. Minimal pericardial effusion. Lungs are unremarkable. CT abdomen pelvis showed 1. 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 Mildly prominent but diffuse mesenteric subcentimeter lymph nodes and retroperitoneal lymph nodes without evidence of bulky layne enlargement. 2. Mesenteric edema 3. Tiny sclerotic and lucent foci noted throughout spine and pelvis which may be degenerative but early osseous metastatic disease cannot be completely excluded. 4. Indeterminate left adrenal nodule measuring 21 x 20 mm. Concern for adrenal metastatic focus given consolation of findings. 5. Heart is top normal size with small to moderate size pericardial effusion. Prominent vasculature. 6. Mild hepatic steatosis/hepatomegaly. No focal hepatic lesions. 7. Mild prostate enlargement measuring 15 x 34 mm, mild elevation of base of the bladder which may be mildly thickened. Bilateral perinephric stranding. 8. Moderate stool compatible with constipation. No prior history of blood clots as per patient. Patient declined admission recommendation from ED provider. Patient had pleuritic right-sided chest pain today with SOB. Patient consulted ER for evaluation. IV heparin initiated at the ER. 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 Admission Exam Per Admitting Provider GENERAL: Anxious, tearful, looks older than stated age, no respiratory distress SKIN: Pallor, warm HEENT: Pale palpebral conjunctivae, no ptosis, dry buccal mucosa NECK : Supple, no tenderness CHEST : CTA, no tenderness HEART : Tachycardic, no obvious murmurs ABDOMEN: Some distention, nontender BACK : Low back tenderness, limited SLR left EXTREMITIES : Minimal RUE tenderness, no LE swelling/tenderness, palpable pulses, no other conspicuous deformities noted NEUROLOGIC : Coherent, no facial asymmetry, no other gross focality Principal Diagnosis Acute bilateral pulmonary embolism Right upper extremity deep vein thrombosis Suspected metastatic disease Small pericardial effusion Lumbar radiculopathy Ongoing tobacco use disorder Anemia of chronic disease/iron deficiency Thrombocytosis Syncope Left adrenal nodule Hepatomegaly Discharge Data Allergies Allergy/AdvReac Type Severity Reaction Status Date / Time No Known Allergies Allergy Verified 08/20/24 19:50 Consultations 12/01/24 00:33 ED Decision to Admit Stat 12/01/24 02:03 Consult Hematology Routine 12/01/24 04:42 Consult Orthopedic Spine Surgery Routine Procedures Performed Laboratory Results WBC 13.29 K/ul (4.8-10.8) H 12/01/24 03:51 RBC 3.55 M/uL (4.70-6.10) L 12/01/24 03:51 Hgb 7.3 g/dl (14.0-18.0) L 12/01/24 08:02 Hct 25.1 % (42.0-52.0) L 12/01/24 08:02 MCV 67.3 fL (80.0-100.0) L 12/01/24 03:51 MCH 19.7 pg (25.0-34.0) L 12/01/24 03:51 MCHC 29.3 g/dL (32.0-36.0) L 12/01/24 03:51 RDW Std Deviation 41.5 fL (36.4-46.3) 12/01/24 03:51 RDW Coeff of Cheng 17.1 % (11.5-14.5) H 12/01/24 03:51 Plt Count 992 K/uL (130-400) H 12/01/24 03:51 MPV 8.4 fL (9.4-12.4) L 12/01/24 03:51 Immature Gran % (Auto) 1.1 % 12/01/24 03:51 Neut % (Auto) 71.9 % 12/01/24 03:51 Lymph % (Auto) 16.6 % 12/01/24 03:51 [place] % (Auto) 9.6 % 12/01/24 03:51 Eos % (Auto) 0.6 % 12/01/24 03:51 Baso % (Auto) 0.2 % 12/01/24 03:51 Reticulocyte % (Auto) 1.73 % (0.50-2.00) 12/01/24 03:51 Neut # (Auto) 9.58 K/uL (1.40-6.50) H 12/01/24 03:51 Lymph # (Auto) 2.20 K/uL (1.20-3.40) 12/01/24 03:51 [place] # (Auto) 1.27 K/uL (0.11-0.59) H 12/01/24 03:51 Eos # (Auto) 0.08 K/uL (0.00-0.50) 12/01/24 03:51 Baso # (Auto) 0.02 K/uL (0.00-0.20) 12/01/24 03:51 Reticulocyte # 0.060 10^6/uL (0.020-0.100) 12/01/24 03:51 Immature Gran # (Auto) 0.14 K/uL (0.01-0.20) 12/01/24 03:51 Polychromasia 1+ 12/01/24 03:51 Hypochromasia Present 12/01/24 03:51 Microcytosis Present 12/01/24 03:51 Peripher Smr Path Cons 12/01/24 03:51 PT 11.9 Seconds (9.0-12.0) 11/30/24 20:33 INR 1.1 (0.9-1.1) 11/30/24 20:33 APTT 35 Seconds (21-31) H 11/30/24 20:33 PTT Ratio 1.3 11/30/24 20:33 Heparin Anti-Xa, Unfract 0.10 IU/ml (0.3-0.7) L 12/01/24 09:13 VBG pH 7.44 (7.36-7.41) H 11/30/24 21:07 VBG pCO2 41 mmHg (38-50) 11/30/24 21:07 VBG pO2 28 mmHg 11/30/24 21:07 VBG HCO3 28 mmol/L 11/30/24 21:07 VBG O2 Saturation < 60.0 % 11/30/24 21:07 VBG Base Excess 3.3 mEq/L 11/30/24 21:07 Sodium 133 mmol/L (136-145) L 12/01/24 03:51 Potassium 3.6 mmol/L (3.5-5.1) 12/01/24 03:51 Chloride 94 mmol/L (98-107) L 12/01/24 03:51 Carbon Dioxide 30 mmol/L (21-32) 12/01/24 03:51 Anion Gap 9 (3-11) 12/01/24 03:51 BUN 8 mg/dl (6-23) 12/01/24 03:51 Creatinine 0.48 mg/dl (0.6-1.4) L 12/01/24 03:51 Est Cr Clr Drug Dosing 215.0 ml/min 12/01/24 03:51 eGFR 128.17 12/01/24 03:51 BUN/Creatinine Ratio 16.7 (10-20) 12/01/24 03:51 Glucose 182 mg/dl (70-99(Fasting)) H 12/01/24 03:51 POC Glucose 168 mg/dl (70-99) H 12/01/24 11:31 Estimat Average Glucose 289 mg/dl 12/01/24 03:51 Hemoglobin A1c 11.7 % (4.5-5.6) H 12/01/24 03:51 Calcium 8.5 mg/dl (8.6-10.3) L 12/01/24 03:51 Magnesium 1.8 mg/dl (1.7-2.4) 11/30/24 20:33 Iron 10 mcg/dl (35-175) L 12/01/24 03:51 Transferrin 150 mg/dl (200-360) L 12/01/24 03:51 Ferritin 805.1 ng/ml (8-388) H 12/01/24 03:51 Total Bilirubin 0.3 mg/dl (0.2-1.0) 11/30/24 20:33 AST 28 U/L (13-39) 11/30/24 20:33 ALT 33 U/L (7-52) 11/30/24 20:33 Alkaline Phosphatase 241 U/L (34-104) H 11/30/24 20:33 Troponin I High Sens 4.8 pg/ml (0-20) 11/30/24 20:33 B-Natriuretic Peptide 44 pg/ml (0-100) 11/30/24 21:07 Total Protein 7.5 gm/dl (6.0-8.3) 11/30/24 20:33 Albumin 2.6 gm/dl (3.4-5.0) L 11/30/24 20:33 Globulin 4.9 gm/dl (2.5-4.0) H 11/30/24 20:33 Albumin/Globulin Ratio 0.5 (0.9-2) L 11/30/24 20:33 Lipase 13 U/L (11-82) 11/30/24 20:33 Prostate Specific Ag 0.739 ng/ml (0-4) 12/01/24 08:02 Vitamin B12 235 pg/ml (180-914) 12/01/24 03:51 Folate 7.41 ng/ml (>5.38) 12/01/24 03:51 TSH 4.195 uIu/ml (0.300-4.500) 12/01/24 03:51 Urine Color Yellow 12/01/24 Unknown Urine Appearance Clear (Clear) 12/01/24 Unknown Urine pH 6.0 (4.5-7.5) 12/01/24 Unknown Ur Specific [place] 1.010 (1.000-1.030) 12/01/24 Unknown Urine Protein Negative (Negative) 12/01/24 Unknown Urine Glucose (UA) Negative (Negative) 12/01/24 Unknown Urine Ketones Negative (Negative) 12/01/24 Unknown Urine Blood Negative (Negative) 12/01/24 Unknown Urine Nitrite Negative (Negative) 12/01/24 Unknown Urine Bilirubin Negative (Negative) 12/01/24 Unknown Urine Urobilinogen Negative (Negative) 12/01/24 Unknown Ur Leukocyte Esterase Negative (Negative) 12/01/24 Unknown Urine Comment 12/01/24 Unknown Blood Type O Positive 12/01/24 08:02 Antibody Screen NEGATIVE 12/01/24 08:02 Impressions Chest X-Ray 11/30/24 20:20 Chest radiograph, one view History: Chest pain Comparison: None Findings: Single AP view of the chest performed. No focal consolidation or pleural effusion. No pneumothorax. The cardiomediastinal silhouette is within normal limits. Normal pulmonary vascularity. No evidence for lymphadenopathy. No visualized bony or soft tissue abnormality. Impression: Normal chest radiograph Electronically signed by Terrance Brock 11-30-2024 8:57 PM Chest CTA 11/30/24 20:45 CR Exam(s): CTA CHEST IV Amt: 115 ml optiray 320 EXAM: CT Angiography Chest With Intravenous Contrast CLINICAL HISTORY: Reason for exam: PE. TECHNIQUE: Axial computed tomographic angiography images of the chest with intravenous contrast. CTDI is 19.99 mGy and DLP is 690.49 mGy-cm. Automated exposure control was utilized for the study. A dose lowering technique was utilized adhering to the principles of ALARA. MIP reconstructed images were created and reviewed. COMPARISON: No relevant prior studies available. FINDINGS: Pulmonary arteries: Acute subsegmental PE in the right lower lobe. Aorta: No acute findings. Normal caliber. No dissection. Other veins: Fat stranding around the right brachial vein suspicious for DVT. Lungs: Atelectasis in the right lower lobe. No pulmonary infarct or consolidation. Pleural space: No pleural effusion. No pneumothorax. Heart: RV to LV ratio less than 1. Small pericardial effusion. Bones/joints: No acute fracture. Soft tissues: Soft tissue edema in the right axilla.. Lymph nodes: Unremarkable. IMPRESSION: 1. Acute subsegmental PE in the right lower lobe. 2. No evidence of right heart strain. 3. Small pericardial effusion. 4. Fat stranding around the right brachial vein suspicious for DVT. Recommend right upper extremity duplex ultrasound. Communications: Call Doctor Pulmonary Embolism Electronically signed by: Jone Gomez MD 11/30/24 23:55 PM Lumbar Spine MRI 12/01/24 02:02 EXAM: MR lumbar spine wo/w con CLINICAL HISTORY: worsening back pain, poss marrow infilration TECHNIQUE: Different pulse sequences were performed in different planes for the lumbar spine without and with contrast (8cc gadavist ). Images were sent through PACs for diagnostic interpretation. COMPARISON: prior MRI lumbar spine dated 11/19/2024, 08/20/2024 and 05/11/2024 FINDINGS: Vertebral Alignment: Normal alignment of the lumbar spine without evidence of fracture or malalignment. No evidence of scoliosis is observed. Vertebral Bodies and Intervertebral Discs: Abnormal low marrow signal along the visualized bone; which can be attributed to red marrow reconversion versus marrow infiltrative process . No enhancing focal bone marrow lesions. Degenerative marrow changes Modic II at L4 and L5. L5 and T12 vertebral body hemangiomas. Normal vertebral body height, no fracture identified. No lytic or sclerotic lesions. Intervertebral discs demonstrate lower lumbar spondylodegenerative changes at L4-L5 and L5 ?S1 manifested by disc desiccation . [id number] analysis: T12-L1: There is no significant disc pathology. No spinal canal stenosis. No neural foraminal stenosis. No ligamentum flavum hypertrophy and facet joint arthropathy. L1-L2: There is no significant disc pathology. No spinal canal stenosis. No neural foraminal stenosis. No ligamentum flavum hypertrophy and facet joint arthropathy. L2-L3: There is no significant disc pathology. No spinal canal stenosis. No neural foraminal stenosis. No ligamentum flavum hypertrophy and facet joint arthropathy. L3-L4: There is no significant disc pathology. No spinal canal stenosis. No neural foraminal stenosis. No ligamentum flavum hypertrophy and facet joint arthropathy. L4-L5: previous intervention with left sided partial laminectomy. Diffuse disc bulge showing left para-central disc herniation about 7.5 mm in AP dimension with mild inferior migration associated with surrounding enhancing granulation tissue , with facet joint arthrosis and hypertrophied ligamenta flava causing narrowing of the left lateral recess with compression of the left L5 traversing nerve root as well as mild bilateral neural foraminal stenosis. No spinal canal stenosis. L5-S1: diffuse disc bulge showing broad-based central and right para-central disc herniation about 8.5 mm in AP dimension and 2.5 cm in ML dimension; coupled with mild facet joint arthrosis and hypertrophied ligamenta flava ; causing mild anterior thecal indentation and mild bilateral neural foraminal stenosis. No spinal canal stenosis. Spinal Cord and Nerve Roots: Conus medullaris terminates at the L1 level without abnormality. Nerve roots appear unremarkable bilaterally. The lower thoracic spinal cord, conus medullaris, and cauda equina nerve roots are unremarkable. Soft Tissues: Paraspinal soft tissues appear normal without evidence of abnormal signal intensity or mass lesions. IMPRESSION: 1. Abnormal low marrow signal along the visualized bones; which can be attributed to red marrow reconversion versus marrow infiltrative process . No enhancing focal bone marrow lesions. 2. Lower lumbar spondylodegenerative changes at L4-L5 and L5 ?S1. 3. L4-L5: previous intervention with left sided partial laminotomy. Diffuse disc bulge showing left para-central disc herniation about 7.5 mm in AP dimension with mild inferior migration associated with surrounding enhancing granulation tissue , with facet joint arthrosis and hypertrophied ligamenta flava causing narrowing of the left lateral recess with compression of the left L5 traversing nerve root as well as mild bilateral neural foraminal stenosis. No spinal canal stenosis. 4. L5-S1: diffuse disc bulge showing broad-based central and right para-central disc herniation about 8.5 mm in AP dimension and 2.5 cm in ML dimension; coupled with mild facet joint arthrosis and hypertrophied ligamenta flava ; causing mild anterior thecal indentation and mild bilateral neural foraminal stenosis. No spinal canal stenosis. 5. These changes remain stationary since prior study dated 11/19/2024. Electronically signed by Alirio Montiel 12-01-2024 04:35 AM Carotid Doppler Study 12/01/24 08:59 US carotid doppler BI CLINICAL HISTORY: 49 years-old Male with Syncope. Acute syncope COMPARISON: CTA chest 11/30/2024 TECHNIQUE: Multiple real time sonographic images of the carotid bifurcations were obtained assessing garcia scale, color Doppler and spectral wave form appearance FINDINGS: RIGHT CAROTID: The peak systolic velocity measured in the right ICA is 96 cm/sec. The end diastolic velocity measured 33 cm/sec. The ICA to CCA ratio measured 1.0 which correlates with a stenosis of 0-50%. Mild atherosclerosis. LEFT CAROTID: The peak systolic velocity measured in the left ICA is 118 cm/sec. The end diastolic velocity measured 27 cm/sec. The ICA to CCA ratio measured 1.0 which correlates with a stenosis of 0-50%. Mild atherosclerosis. There is normal antegrade vertebral flow bilaterally. Occlusive thrombus within the right internal jugular vein incidentally noted. IMPRESSION: 1. No hemodynamically significant stenosis or significant atherosclerotic plaquing. 2. Normal antegrade vertebral flow bilaterally. 3. Thrombus of the right internal jugular vein. Dedicated right upper extremity Doppler recommended. ACT 112: Negative or not required by law. The above report was generated using voice recognition software. It may contain grammatical, syntax or spelling errors. Electronically signed by: Aleksander Hein M.D. 12/01/2024 11:36 AM Ordered Studies 11/30/24 20:45 CT angio chest PE protocol Stat 12/01/24 02:02 MRI Spine [MR lumbar spine wo/w con] Routine 12/01/24 08:59 Carotid duplex [US carotid doppler BI] Routine Hospital Course (1) Pulmonary embolism: Assessment and plan below following discussion of case with ED provider and lazaro estrada patient history/pertinent normal/abnormal diagnostic test results. PE/upper extremity DVT First occurrence Likely from metastatic cancer, ? Prostate primary Pericardial effusion on imaging Worsening lumbar radiculopathy, history of back surgery ? Secondary to malignancy DM 2 insulin requiring, elevated BSG, unknown control Progressive anemia; leukocytosis, thrombocytosis possibly from bone marrow infiltration of malignancy ongoing tobacco abuse Admit to med/tele IV heparin Oncology consultation RE PE in the setting of probable metastatic cancer, bone marrow infiltration on imaging Check PSA TTE re: pericardial effusion Lumbar spine MRI re: worsening back pain Orthopedic spine consult (Patient known to Dr. Kang of [facility] and has a scheduled outpatient appointment this week.) Basal insulin, ISS BG goal 110-140, carb count coverage, check hemoglobin A1c Nicotine patch as needed DVT prophylaxis. IV heparin Full code Patient requesting updates providers. Reynold Michelle Baldwin, contact #[phone]. Patient was explained in detail about patient's condition need for treatment and further investigations and evaluation by consultants. Despite explaining the risks and complications of leaving untreated, patient prefers to leave AGAINST MEDICAL ADVICE. He understands that his condition cannot be detrimental, can lead to cardiorespiratory arrest, and even cause . Patient signed out AGAINST MEDICAL ADVICE. Total Time Total Time Spent Total Time Spent (In Minutes): 54 minutes Discharge Plan Discharge Items Patient Disposition: Against Medical Advice Reason For Visit: PE Condition on Discharge: Serious Activity: As commented below Non-emergency contact: Primary Care Provider Follow-up/Referrals: Peter Gong [Primary Care Provider] - Pending Studies at Discharge: No Stand-Alone Forms: My [facility] DNP [employer], Smoking Cessation Medications and DC Order Prescriptions: Continued pravastatin 20 mg tablet 20 mg PO QAM metformin 500 mg tablet extended release 24 hr 500 mg PO BIDM acetaminophen [Tylenol Extra Strength] 500 mg Tablet 1,000 mg PO Q6H PRN (Reason: PAIN/FEVER) omeprazole 20 mg capsule,delayed release(DR/EC) 20 mg PO QAM insulin glargine U-300 conc [Toujeo Max U-300 SoloStar] 300 unit/mL (3 mL) insulin pen 30 unit SUBCUT HS duloxetine 60 mg capsule,delayed release(DR/EC) 60 mg PO BID oxycodone-acetaminophen [Percocet] 5-325 mg tablet 1 tab PO Q6 PRN (Reason: pain,severe) Discharge Orders: Left Against Medical Advice (Routine); Ordered 12/01/24 Ordered By: Jose Diaz Admission Data Admit Date/Time: 12/01/24 01:03 Attending Provider: Jose Diaz Admit Provider: Eyal Lopez Primary Care Provider: Peter Gong Other Providers: Eyal Lopez; Mariela Mario Gregory M
[2024-12-01] MEDS ORDERED: REMOVE LIDODERM PATCH SCH (15:00)
[2024-12-01] MEDS ORDERED: LANTUS PER UNIT CHARGE SQ SCH (21:00)
[2024-12-02] MEDS ORDERED: LANTUS PER UNIT CHARGE SQ SCH (21:00)
[2024-12-02] MEDS ORDERED: REMOVE LIDODERM PATCH SCH (21:00)
== END 2024-12-01 12:30 | disposition left against medical advice (07) | DRG 299 ==
LOC: ED 20:11 → EDINP 12-01 01:03 → INTOOBSV 12-01 01:03 → EDINP 12-01 01:32

== ENCOUNTER 2025-01-22 21:24 | Inpatient (IN) ==
--- NOTE | 2025-01-22 21:54 | Emergency Department Note ---
Impression & Plan Pericardial effusion with cardiac tamponade, Thrombocytosis, Pseudohyponatremia, Acute hyperglycemia, Hypoalbuminemia, Chronic anemia, Hypomagnesemia, Hypocalcemia, Acute hypoxic respiratory failure ED Provider Note NAME: ANABELLA QUEEN AGE: 49 SEX: M : 1975 ARRIVES VIA: Walk-In INFORMANT: Patient, family ED PROVIDER(S): Germán Adkins DO CHIEF COMPLAINT: SOB HPI: This is a 49-year-old male with the PMHx of likely carcinomatosis/GI malignancy with multiple thrombotic events including DVTs of the upper extremity, SVC thrombus and submassive PE complicated by pericardial effusion s/p pericardiocentesis and drain [place] [facility], tobacco use disorder and DM2 presenting to [facility] for further evaluation of chest pain and shortness of breath. Patient is accompanied by his family members who provide additional history. He reports over the last day or so he has had worsening midsternal chest pain associated with shortness of breath. He states he is unable to lie flat. Patient states he was recently admitted to the [facility] for approximately 4 to 5 days. He had a thrombectomy of his SVC thrombus as well as pericardial effusion drain placement. He states he continues on apixaban for chronic anticoagulation. They deny fever or chills. He does have a worsening nonproductive cough. Denies chest palpitations. They deny abdominal pain, nausea and vomiting. No urinary complaints. No recent changes in bowel movements. He does note some swelling of his lower extremities as well as his right upper extremity. He notes that he did have a DVT of the right upper extremity previously. Patient offers no other complaints, today. ADDITIONAL HISTORY OBTAINED: Per HPI Chronic Medical/Social Conditions Affecting Care: Per HPI PAST MEDICAL HISTORY: See Below PAST SURGICAL HISTORY: See Below FAMILY HISTORY: See Below SOCIAL HISTORY: See Below HOME MEDICATIONS: See Below ALLERGIES: See Below VITALS: See Below PHYSICAL EXAMINATION: GENERAL: Sitting up in bed, alert, well appearing, well nourished, no distress, non-toxic EYE EXAM: normal conjunctiva. PERRL and EOM's grossly intact. OROPHARYNX: no exudate, no erythema, lips, buccal mucosa, and tongue normal and mucous membranes are moist NECK: supple, no nuchal rigidity, no adenopathy, non-tender LUNGS: Coarse breath sounds bilaterally with faint expiratory wheezing. Mild tachypnea. Normal chest wall mechanics HEART: no murmurs, tachycardic rate, regular rhythm ABDOMEN: abdomen soft, non-tender, no masses, no rebound or guarding. BACK: Back is symmetrical on inspection and there is no deformity, no midline tenderness, no CVA tenderness. SKIN: no rashes and no bruising UPPER EXTREMITIES: Trace edema of the distal right upper extremity. 2+ radial pulses bilaterally. LOWER EXTREMITIES: Trace lower extremity edema. 2+ DP pulses. NEURO EXAM: Normal sensorium, GCS 15, normal speech, no gross weakness of arms, no gross weakness of legs. MEDICAL DECISION MAKING: Differential diagnoses includes but not limited to pericardial tamponade, pericardial effusion, COPD exacerbation, aortic dissection, ACS, stable vs unstable angina, dysrhythmia, viral URI, pneumonia, pericarditis, pneumothorax, costochondritis, MSK strain, PE, hypertensive emergency, psychological causes, esophageal reflux, gastritis In summary, this is a 49 year old male who presented with chest pain and SOB. Differential as above. Nursing notes and pertinent past medical records reviewed. Vital signs reviewed and the patient is tachycardic and borderline hypotensive. He is mildly tachypneic and intermittently hypoxic. Placed on LFNC with improvement. History and presentation revealed complex recent history at [facility]. He did have recent admission until 01/12. Physical examination revealed as above. As a result of my initial evaluation, we will plan for CT dissection study as well as basic lab work, chest x-ray and bedside ultrasound. Crystalloid resuscitation ordered on arrival. The patient has stated multiple times that he does not want transferred to [facility]. He would prefer to stay at this hospital at all availabilities. Diagnostics interpreted by me include EKG and cardiac monitoring as listed below: -Cardiac Monitoring: An order was placed for continuous cardiac monitoring. The monitor shows a rate of 110-150s with regular rhythm. -ECG: sinus tachycardia at a rate of [address] segment changes to suggest STEMI. There is mild low voltage QRS. No significant electrical alternans. There are no significant ST segment changes to suggest STEMI. Intervals are otherwise within normal limits. Patient completed laboratory studies and imaging. Results independently interpreted by me are mild leukocytosis. Relatively stable anemia at 7.4 with a hematocrit of 26.2. Thrombocytosis noted. Coagulation studies are relatively normal. Does have pseudohyponatremia in the setting of hyperglycemia. No significant acidosis or anion gap present. Lactate was normal. Mild hypomagnesemia and Hypocalcemia. IV replenishment ordered. Patient's LFTs are normal. Mild elevation in alkaline phosphatase. Normal troponin and BNP. Hypoalbuminemia present. The patient was managed with Crystalloid resuscitation. CT dissection study was ordered. Bedside ultrasound obtained on arrival and independently interpreted by me. The patient was not able to tolerate CT scan. Patient became dyspneic and cyanotic. CT scan deferred at this time. Patient was given IV fluid resuscitation. He was given a liter of crystalloid resuscitation. Patient was also given multiple electrolyte replenishment including magnesium and calcium. Patient's hemodynamics have slightly improved. Improvement in blood pressure as well as tachycardia. Patient is less tachycardic. Now appears to have sinus tachycardia in the 130s. Based on bedside ultrasound showing a moderate to large pericardial effusion with slightly distended IVC, I immediately called interventional cardiology. I spoke with Dr. Vuong. He recommended formal TTE and does not feel the patient currently has cardiac tamponade. I will touch base with the cardiology team. Connected with Dr. Perez at [phone]. They were able to arrange stat TTE. supervisor locomotive was able to call in design draftsman for stat TTE. Ultrasound arrived at the bedside at 2350. I was able to view the study with the seed laboratory technician. The patient does have right ventricular and left atrial collapse. This is in the setting of a moderate size pericardial effusion. Cardiology aware of initial findings and will perform stat read on the study. Will touch base again with interventional cardiology for pericardiocentesis. Discussed with interventional cardiology and they recommended that it is thought that the patient is hemodynamically stable enough for transfer at this time and feel that he would best be served by pericardial window which is not available at our facility. I was able to discuss with the [facility] including the interventional team, cardiology as well as interventional cardiology. I was connected with Graham Munoz and Haroldo at 0106. There was significant delay in [facility] connecting with numerous physicians prior to our group conversation. I spent approximately 30 minutes discussing the case with multiple providers at [facility]. The [facility] team does not feel that the patient is safe for transfer at this time. They do believe that his hemodynamic instability needs to be addressed with pericardiocentesis at our facility. The patient is having difficulty with lying flat. He would not be safe for aerotransport at this time. Do feel this is reasonable. I again reached out to interventional cardiology at our facility and Dr. Vuong was agreeable to perform pericardiocentesis early this morning. I did discuss the case with director smb sales on-call. Patient was discussed with [facility] hospitalist team who was agreeable to admission to the ICU. The patient will need continuous cardiorespiratory monitoring and preload support with continued IV fluid resuscitation. Additional 500 mL bolus ordered. The patient was started on maintenance IV fluids with normal saline at 125 mL/hr. Ultimately, the decision was made to admit the patient for pericardial tamponade with shock like state as well as numerous electrolyte derangements and hyperglycemia. I discussed the case with the hospitalist service via telephone/TigerText and they are agreeable to admit the patient to their services by Dr. Lopez, [facility] Hospitalist team. Based on the above, including the patient's age, coexisting illnesses, labs, imaging, and exam findings the decision to treat as an inpatient. I discussed the patient with the hospitalist team who recommended admission to their services. They received the medications, treatments, interventions indicated above and their condition improved but remained guarded. I discussed my findings with the patient and their family and they understand and agree with the treatment plan. All patient / family questions were answered to their satisfaction. Consults/Care Managements Discussions: Per [facility] ER treatment provided: See above Procedures:none Critical Care: I have personally spent 90 minutes of critical care time in direct management of this patient. This includes bedside care, interpretation of diagnostic studies, and testing, discussion with consultants, patient, and family members, and other require inpatient management activities. This 90 minutes is in excess of all separately billable procedures. The chart was completed utilizing [employer] Speech voice recognition software. Grammatical errors, random word insertions, pronoun errors, and incomplete sentences are an occasional consequence of this system due to software limitations, ambient noise, and hardware issues. Any formal questions or concerns about the content, text, or information contained within the body of this dictation should be directly addressed to the physician for clarification. Past Med/Surg History Problem List (Updated 01/23/25 @ 04:57 by Eyal Lopez MD) Hypotension Abdominal carcinomatosis Acute hypoxic respiratory failure (Acute) Hypocalcemia (Acute) Hypomagnesemia (Acute) Chronic anemia (Acute) Pericardial effusion with cardiac tamponade (Acute) Hypoalbuminemia (Acute) Acute hyperglycemia (Acute) Pseudohyponatremia (Acute) Thrombocytosis (Acute) Acute deep vein thrombosis of upper extremity (Acute) Pulmonary embolism (Acute) Encounter for pre-operative examination Medical History DM type 2 (diabetes mellitus, type 2) HLD (hyperlipidemia) Chronic left-sided low back pain Surgical History History of tooth extraction History of inguinal hernia repair History of colonoscopy Family History Other No family history of adverse response to anesthesia Social History Smoking Status: Former smoker Tobacco Type: Cigarettes Cigarettes Per Day: 1 ppd; Second Hand Exposure: No; Do You Dip or Chew Tobacco: No; Hx Alcohol Use: No Hx Substance Use: No Preferred Language: Tristanian Communication Ability: Effective Rolled Glass Crosscutter Required: No Beliefs That Will Affect Care: None Current Living Situation: Family Current Living Situation Comment: lives w/ and daughter Feels Safe at Home: Yes Assistive Devices: Glasses Allergies Allergies Allergy/AdvReac Type Severity Reaction Status Date / Time No Known Allergies Allergy Verified 01/22/25 23:35 Home Meds Home Medications Medication Instructions Recorded Confirmed pravastatin 20 mg tablet 20 mg PO QAM 05/17/22 01/22/25 metformin 500 mg tablet,extended 500 mg PO BIDM 05/11/24 01/22/25 release 24 hr acetaminophen 500 mg tablet 1,000 mg PO Q6H PRN PAIN/FEVER 08/20/24 01/22/25 (Tylenol Extra Strength) omeprazole 20 mg capsule,delayed 20 mg PO QAM 11/19/24 01/22/25 release apixaban 5 mg tablet (Eliquis) 5 mg PO BID 12/27/24 01/22/25 insulin glargine U-300 conc 300 50 unit subcut HS 12/27/24 01/22/25 unit/mL (3 mL) subcutaneous pen (TouQuanta Fluid Solutionso Max U-300 SoloStar) codeine 10 mg-guaifenesin 100 mg/5 5 ml PO Q6H PRN COUGH/PAIN 01/22/25 01/22/25 mL oral liquid oxycodone-acetaminophen 5 mg-325 1 tab PO Q6H PRN Pain, Severe 01/22/25 01/22/25 mg tablet Results & Data (ED) Vital Signs Vital Signs - 24 hr 01/22/25 21:28 01/22/25 21:55 01/22/25 21:55 Temperature 37.1 C Temperature Source Oral Pulse Rate 147 H Pulse Rate [Right Finger] Pulse Rate from SpO2 Sensor Pulse Rhythm [Right Finger] Respiratory Rate 18 Respiratory Effort / Characteristics Non-Labored Spontaneous Non-Labored Spontaneous Respiratory Depth Normal Respiratory Pattern Regular Blood Pressure 98/61 L Blood Pressure [Right Arm] Blood Pressure Mean 73 Blood Pressure Mean [Right Arm] Blood Pressure Position Sitting Pulse Oximetry 93 93 Oxygen Delivery Method Room Air Room Air Room Air Oxygen Flow Rate Sepsis Recent Fever Within 48 Hours No Sepsis New/Unexplained Change in Mental Status N/A Sepsis Action Taken by Nursing Physician Notified 01/22/25 21:55 01/22/25 22:03 01/22/25 22:22 Temperature Temperature Source Pulse Rate Pulse Rate [Right Finger] 147 H Pulse Rate from SpO2 Sensor Pulse Rhythm [Right Finger] Regular Respiratory Rate 16 18 18 Respiratory Effort / Characteristics Non-Labored Respiratory Depth Normal Normal Respiratory Pattern Blood Pressure Blood Pressure [Right Arm] 98/75 L Blood Pressure Mean Blood Pressure Mean [Right Arm] 82 Blood Pressure Position Pulse Oximetry 93 93 87 L Oxygen Delivery Method Room Air Room Air Room Air Oxygen Flow Rate Sepsis Recent Fever Within 48 Hours Sepsis New/Unexplained Change in Mental Status Sepsis Action Taken by Nursing 01/22/25 22:24 01/22/25 22:28 01/22/25 22:30 Temperature Temperature Source Pulse Rate Pulse Rate [Right Finger] Pulse Rate from SpO2 Sensor Pulse Rhythm [Right Finger] Respiratory Rate 18 Respiratory Effort / Characteristics Non-Labored Respiratory Depth Normal Respiratory Pattern Blood Pressure 93/63 L 92/69 L Blood Pressure [Right Arm] Blood Pressure Mean 71 73 Blood Pressure Mean [Right Arm] Blood Pressure Position Pulse Oximetry 94 Oxygen Delivery Method Nasal Cannula Oxygen Flow Rate 2 Sepsis Recent Fever Within 48 Hours Sepsis New/Unexplained Change in Mental Status Sepsis Action Taken by Nursing 01/22/25 22:36 01/22/25 22:57 01/22/25 23:02 Temperature Temperature Source Pulse Rate 145 H 136 H Pulse Rate [Right Finger] 132 H Pulse Rate from SpO2 Sensor 135 H Pulse Rhythm [Right Finger] Regular Respiratory Rate 23 18 Respiratory Effort / Characteristics Respiratory Depth Normal Respiratory Pattern Blood Pressure Blood Pressure [Right Arm] 105/78 Blood Pressure Mean Blood Pressure Mean [Right Arm] 87 Blood Pressure Position Pulse Oximetry 94 93 Oxygen Delivery Method Nasal Cannula Oxygen Flow Rate 2 Sepsis Recent Fever Within 48 Hours Sepsis New/Unexplained Change in Mental Status Sepsis Action Taken by Nursing 01/22/25 23:02 01/22/25 23:09 01/22/25 23:18 Temperature Temperature Source Pulse Rate 132 H 138 H Pulse Rate [Right Finger] Pulse Rate from SpO2 Sensor 132 H 139 H Pulse Rhythm [Right Finger] Respiratory Rate 25 H 28 H Respiratory Effort / Characteristics Respiratory Depth Respiratory Pattern Blood Pressure 105/78 Blood Pressure [Right Arm] Blood Pressure Mean 86 Blood Pressure Mean [Right Arm] Blood Pressure Position Pulse Oximetry 93 94 Oxygen Delivery Method Oxygen Flow Rate Sepsis Recent Fever Within 48 Hours Sepsis New/Unexplained Change in Mental Status Sepsis Action Taken by Nursing 01/22/25 23:51 01/23/25 00:00 01/23/25 00:09 Temperature Temperature Source Pulse Rate 126 H 127 H Pulse Rate [Right Finger] 132 H Pulse Rate from SpO2 Sensor 126 H 126 H Pulse Rhythm [Right Finger] Regular Respiratory Rate 25 H 18 20 Respiratory Effort / Characteristics Non-Labored Respiratory Depth Normal Respiratory Pattern Blood Pressure Blood Pressure [Right Arm] 114/73 Blood Pressure Mean Blood Pressure Mean [Right Arm] 86 Blood Pressure Position Pulse Oximetry 94 92 95 Oxygen Delivery Method Nasal Cannula Oxygen Flow Rate 2 Sepsis Recent Fever Within 48 Hours Sepsis New/Unexplained Change in Mental Status Sepsis Action Taken by Nursing 01/23/25 00:15 01/23/25 00:24 01/23/25 00:30 Temperature Temperature Source Pulse Rate 125 H 128 H Pulse Rate [Right Finger] Pulse Rate from SpO2 Sensor 125 H 129 H Pulse Rhythm [Right Finger] Respiratory Rate 16 25 H Respiratory Effort / Characteristics Respiratory Depth Respiratory Pattern Blood Pressure 100/70 Blood Pressure [Right Arm] Blood Pressure Mean 82 Blood Pressure Mean [Right Arm] Blood Pressure Position Pulse Oximetry 94 93 Oxygen Delivery Method Oxygen Flow Rate Sepsis Recent Fever Within 48 Hours Sepsis New/Unexplained Change in Mental Status Sepsis Action Taken by Nursing 01/23/25 00:57 01/23/25 01:00 01/23/25 01:00 Temperature Temperature Source Pulse Rate 121 H Pulse Rate [Right Finger] 121 H Pulse Rate from SpO2 Sensor 121 H Pulse Rhythm [Right Finger] Regular Respiratory Rate 15 18 Respiratory Effort / Characteristics Non-Labored Respiratory Depth Normal Respiratory Pattern Blood Pressure 89/64 L Blood Pressure [Right Arm] 89/64 L Blood Pressure Mean 72 Blood Pressure Mean [Right Arm] 72 Blood Pressure Position Pulse Oximetry 91 90 Oxygen Delivery Method Nasal Cannula Oxygen Flow Rate 2 Sepsis Recent Fever Within 48 Hours Sepsis New/Unexplained Change in Mental Status Sepsis Action Taken by Nursing 01/23/25 01:00 01/23/25 01:09 01/23/25 01:10 Temperature Temperature Source Pulse Rate 122 H Pulse Rate [Right Finger] Pulse Rate from SpO2 Sensor 122 H Pulse Rhythm [Right Finger] Respiratory Rate 22 Respiratory Effort / Characteristics Respiratory Depth Respiratory Pattern Blood Pressure 89/64 L 106/69 Blood Pressure [Right Arm] Blood Pressure Mean 72 77 Blood Pressure Mean [Right Arm] Blood Pressure Position Pulse Oximetry 89 L Oxygen Delivery Method Oxygen Flow Rate Sepsis Recent Fever Within 48 Hours Sepsis New/Unexplained Change in Mental Status Sepsis Action Taken by Nursing 01/23/25 01:10 01/23/25 01:27 01/23/25 01:30 Temperature Temperature Source Pulse Rate 119 H 124 H Pulse Rate [Right Finger] Pulse Rate from SpO2 Sensor 120 H 123 H Pulse Rhythm [Right Finger] Respiratory Rate 25 H 27 H Respiratory Effort / Characteristics Respiratory Depth Respiratory Pattern Blood Pressure 106/69 Blood Pressure [Right Arm] Blood Pressure Mean 77 Blood Pressure Mean [Right Arm] Blood Pressure Position Pulse Oximetry 92 90 Oxygen Delivery Method Oxygen Flow Rate Sepsis Recent Fever Within 48 Hours Sepsis New/Unexplained Change in Mental Status Sepsis Action Taken by Nursing 01/23/25 01:30 01/23/25 01:30 01/23/25 01:51 Temperature Temperature Source Pulse Rate 128 H Pulse Rate [Right Finger] Pulse Rate from SpO2 Sensor 130 H Pulse Rhythm [Right Finger] Respiratory Rate 31 H Respiratory Effort / Characteristics Respiratory Depth Respiratory Pattern Blood Pressure 96/64 L 96/64 L Blood Pressure [Right Arm] Blood Pressure Mean 74 74 Blood Pressure Mean [Right Arm] Blood Pressure Position Pulse Oximetry 95 Oxygen Delivery Method Oxygen Flow Rate Sepsis Recent Fever Within 48 Hours Sepsis New/Unexplained Change in Mental Status Sepsis Action Taken by Nursing 01/23/25 01:57 Temperature Temperature Source Pulse Rate 124 H Pulse Rate [Right Finger] Pulse Rate from SpO2 Sensor 124 H Pulse Rhythm [Right Finger] Respiratory Rate 12 Respiratory Effort / Characteristics Respiratory Depth Respiratory Pattern Blood Pressure Blood Pressure [Right Arm] Blood Pressure Mean Blood Pressure Mean [Right Arm] Blood Pressure Position Pulse Oximetry 93 Oxygen Delivery Method Oxygen Flow Rate Sepsis Recent Fever Within 48 Hours Sepsis New/Unexplained Change in Mental Status Sepsis Action Taken by Nursing Laboratory Data 01/23/25 03:00 01/23/25 03:00 Lab Results 01/22/25 01/22/25 01/23/25 Range/Units 21:50 22:11 01:39 WBC 14.74 H (4.8-10.8) K/ul RBC 3.81 L (4.70-6.10) M/uL Hgb 7.4 L (14.0-18.0) g/dl POC Hgb 8.8 L (14.0-18.0) g/dl Hct 26.2 L (42.0-52.0) % POC Hct 26 L (42-52) % MCV 68.8 L (80.0-100.0) fL MCH 19.4 L (25.0-34.0) pg MCHC 28.2 L (32.0-36.0) g/dL RDW Std Deviation 54.2 H (36.4-46.3) fL RDW Coeff of Cheng 22.2 H (11.5-14.5) % Plt Count 546 H (130-400) K/uL MPV 8.4 L (9.4-12.4) fL Immature Gran % (Auto) 0.8 % Neut % (Auto) 84.8 % Lymph % (Auto) 6.0 % Mckean % (Auto) 8.1 % Eos % (Auto) 0.1 % Baso % (Auto) 0.2 % Neut # (Auto) 12.49 H (1.40-6.50) K/uL Lymph # (Auto) 0.88 L (1.20-3.40) K/uL Mckean # (Auto) 1.20 H (0.11-0.59) K/uL Eos # (Auto) 0.02 (0.00-0.50) K/uL Baso # (Auto) 0.03 (0.00-0.20) K/uL Immature Gran # (Auto) 0.12 (0.01-0.20) K/uL Absolute Nucleated RBC 0.03 (0.00-0.12) K/uL Nucleated RBC % (auto) 0.2 % Polychromasia 1+ Anisocytosis Present Microcytosis Present PT 13.1 H (9.0-12.0) Seconds INR 1.3 H (0.9-1.1) APTT 34 H (21-31) Seconds PTT Ratio 1.3 POC Sodium 128 L (135-144) mmol/L Sodium 126 L (136-145) mmol/L POC Potassium 3.9 (3.3-5.0) mmol/L Potassium 4.0 (3.5-5.1) mmol/L POC Chloride 89 L (101-112) mmol/L Chloride 89 L (98-107) mmol/L Carbon Dioxide 26 (21-32) mmol/L POC Total CO2 28 (24-31) mmol/L Anion Gap 11 (3-11) POC Anion Gap 16.0 (16-25) mmol/L POC BUN 10 (7-18) mg/dl BUN 11 (6-23) mg/dl Creatinine 0.60 (0.6-1.4) mg/dl POC Creatinine 0.5 L (0.6-1.3) mg/dl Est Cr Clr Drug Dosing 167.9 ml/min eGFR 119.82 BUN/Creatinine Ratio 18.3 (10-20) Glucose 310 H* (70-99(Fasting)) mg/dl POC Glucose (other) 322 H (70-99) mg/dl Osmolality 283 (280-300) mOsm/kg Lactate 1.7 (0.4-2.0) mmol/L Calcium 8.3 L (8.6-10.3) mg/dl POC Ioniz Calcium Vlad 1.04 L (1.12-1.32) mmol/l Magnesium 1.5 L (1.7-2.4) mg/dl Total Bilirubin 0.2 (0.2-1.0) mg/dl AST 38 (13-39) U/L ALT 35 (7-52) U/L Alkaline Phosphatase 210 H (34-104) U/L Troponin I High Sens 3.6 (0-20) pg/ml B-Natriuretic Peptide 30 (0-100) pg/ml Total Protein 7.8 (6.0-8.3) gm/dl Albumin 2.1 L (3.4-5.0) gm/dl Globulin 5.7 H (2.5-4.0) gm/dl Albumin/Globulin Ratio 0.4 L (0.9-2) Lipase 5 L (11-82) U/L Procalcitonin 0.70 H (0-0.5) ng/ml Urine Color Urine Appearance (Clear) Urine pH (4.5-7.5) Ur Specific Butler (1.000-1.030) Urine Protein (Negative) Urine Glucose (UA) (Negative) Urine Ketones (Negative) Urine Blood (Negative) Urine Nitrite (Negative) Urine Bilirubin (Negative) Urine Urobilinogen (Negative) Ur Leukocyte Esterase (Negative) Urine WBC (Auto) (0-5) /hpf Urine RBC (Auto) (0-2) /hpf U Hyaline Cast (Auto) (0-2) /lpf U Epithel Cells (Auto) (0-2) /hpf Urine Bacteria (Auto) (None Seen) Urine Osmolality (500-800) mOsm/kg Ur Random Sodium mmol/L Urine Comment 01/23/25 Range/Units 01:57 WBC (4.8-10.8) K/ul RBC (4.70-6.10) M/uL Hgb (14.0-18.0) g/dl POC Hgb (14.0-18.0) g/dl Hct (42.0-52.0) % POC Hct (42-52) % MCV (80.0-100.0) fL MCH (25.0-34.0) pg MCHC (32.0-36.0) g/dL RDW Std Deviation (36.4-46.3) fL RDW Coeff of Cheng (11.5-14.5) % Plt Count (130-400) K/uL MPV (9.4-12.4) fL Immature Gran % (Auto) % Neut % (Auto) % Lymph % (Auto) % Mckean % (Auto) % Eos % (Auto) % Baso % (Auto) % Neut # (Auto) (1.40-6.50) K/uL Lymph # (Auto) (1.20-3.40) K/uL Mckean # (Auto) (0.11-0.59) K/uL Eos # (Auto) (0.00-0.50) K/uL Baso # (Auto) (0.00-0.20) K/uL Immature Gran # (Auto) (0.01-0.20) K/uL Absolute Nucleated RBC (0.00-0.12) K/uL Nucleated RBC % (auto) % Polychromasia Anisocytosis Microcytosis PT (9.0-12.0) Seconds INR (0.9-1.1) APTT (21-31) Seconds PTT Ratio POC Sodium (135-144) mmol/L Sodium (136-145) mmol/L POC Potassium (3.3-5.0) mmol/L Potassium (3.5-5.1) mmol/L POC Chloride (101-112) mmol/L Chloride (98-107) mmol/L Carbon Dioxide (21-32) mmol/L POC Total CO2 (24-31) mmol/L Anion Gap (3-11) POC Anion Gap (16-25) mmol/L POC BUN (7-18) mg/dl BUN (6-23) mg/dl Creatinine (0.6-1.4) mg/dl POC Creatinine (0.6-1.3) mg/dl Est Cr Clr Drug Dosing ml/min eGFR BUN/Creatinine Ratio (10-20) Glucose (70-99(Fasting)) mg/dl POC Glucose (other) (70-99) mg/dl Osmolality (280-300) mOsm/kg Lactate (0.4-2.0) mmol/L Calcium (8.6-10.3) mg/dl POC Ioniz Calcium Vlad (1.12-1.32) mmol/l Magnesium (1.7-2.4) mg/dl Total Bilirubin (0.2-1.0) mg/dl AST (13-39) U/L ALT (7-52) U/L Alkaline Phosphatase (34-104) U/L Troponin I High Sens (0-20) pg/ml B-Natriuretic Peptide (0-100) pg/ml Total Protein (6.0-8.3) gm/dl Albumin (3.4-5.0) gm/dl Globulin (2.5-4.0) gm/dl Albumin/Globulin Ratio (0.9-2) Lipase (11-82) U/L Procalcitonin (0-0.5) ng/ml Urine Color Yellow Urine Appearance Clear (Clear) Urine pH 5.5 (4.5-7.5) Ur Specific Butler 1.017 (1.000-1.030) Urine Protein 1+ H (Negative) Urine Glucose (UA) Trace H (Negative) Urine Ketones Negative (Negative) Urine Blood Negative (Negative) Urine Nitrite Negative (Negative) Urine Bilirubin Negative (Negative) Urine Urobilinogen Negative (Negative) Ur Leukocyte Esterase Negative (Negative) Urine WBC (Auto) 0-5 (0-5) /hpf Urine RBC (Auto) 0-2 (0-2) /hpf U Hyaline Cast (Auto) 0-2 (0-2) /lpf U Epithel Cells (Auto) 0-2 (0-2) /hpf Urine Bacteria (Auto) None Seen (None Seen) Urine Osmolality 512 (500-800) mOsm/kg Ur Random Sodium 63 mmol/L Urine Comment Administered Medications Lactated Ringer's (Lr) 1,000 mls @ 125 mls/hr IV .Q8H KELLE Stop: 01/26/25 01:59 Last Admin: 01/23/25 02:43 Dose: 125 mls/hr Documented By: KADY Insulin Aspart (Insulin Aspart Per Unit Charge) 0 units SC ACHS KELLE Stop: 02/22/25 04:05 Last Admin: 01/23/25 04:44 Dose: 3 units Documented By: ODILON Co-signed By: АННА Insulin Glargine (Lantus Per Unit Charge) 30 units SQ HS KELLE Stop: 02/22/25 02:59 Last Admin: 01/23/25 04:15 Dose: 30 units Documented By: VK Co-signed By: АННА Discontinued Medications Parenteral Electrolytes (Plasma-Lyte A Ph 7.4) 500 mls @ 999 mls/hr IV .Q31M ONE Stop: 01/22/25 22:04 Last Admin: 01/22/25 23:05 Dose: Not Given Documented By: NAW Sodium Chloride (Nss) 1,000 mls @ 999 mls/hr IV .Q1H1M ONE Stop: 01/22/25 23:40 Last Infusion: 01/23/25 00:15 Dose: Infused Documented By: Admin: 01/22/25 23:04 Dose: 999 mls/hr Documented By: KADY Magnesium Sulfate/Dextrose (Magnesium Sulfate / D5w) 1 gm in 100 mls @ 100 mls/hr IV Q1H KELLE Stop: 01/23/25 00:39 Last Infusion: 01/23/25 01:32 Dose: Infused Documented By: Admin: 01/23/25 00:15 Dose: 100 mls/hr Documented By: Infusion: 01/23/25 00:05 Dose: Infused Documented By: Admin: 01/22/25 23:05 Dose: 100 mls/hr Documented By: KADY Calcium Gluconate () 1,000 mg in 60 mls @ 240 mls/hr IV NOW STA Stop: 01/22/25 23:02 Last Infusion: 01/22/25 23:28 Dose: Infused Documented By: Admin: 01/22/25 23:05 Dose: 240 mls/hr Documented By: KADY Sodium Chloride (Nss) 500 mls @ 125 mls/hr IV .Q4H KELLE Stop: 01/23/25 05:29 Last Admin: 01/23/25 02:33 Dose: Not Given Documented By: KADY Sodium Chloride (Nss) 500 mls @ 999 mls/hr IV .Q31M ONE Stop: 01/23/25 02:19 Last Admin: 01/23/25 02:45 Dose: Not Given Documented By: KADY Doxycycline Hyclate 100 mg/ (Dextrose) 100 mls @ 50 mls/hr IV NOW STA Stop: 01/23/25 05:56 Last Infusion: 01/23/25 05:00 Dose: Infused Documented By: Admin: 01/23/25 04:46 Dose: 50 mls/hr Documented By: ODILON Cefepime HCl (Maxipime 2000mg) 2,000 mg in 20 mls @ 5 mls/min IV Q8H KELLE; Protocol Stop: 01/30/25 03:59 Last Admin: 01/23/25 04:46 Dose: 5 mls/min Documented By: ODILON Ioversol (Optiray 320 125ml) 115 ml IV ONCE ONE Stop: 01/22/25 22:18 Last Admin: 01/22/25 22:17 Dose: 115 ml Documented By: HUA Ondansetron HCl (Ondansetron Inj 2 Mg/Ml 2 Ml Vial) 4 mg IV NOW STA Stop: 01/23/25 05:00 Last Admin: 01/23/25 05:04 Dose: 4 mg Documented By: ODILON Imaging Data Radiologist's Impression: Chest X-Ray 01/22/25 21:34 Exam(s): XR CXR 2 VIEWS EXAM: XR Chest, 2 Views CLINICAL HISTORY: Reason for exam: Chest pain, nonspecific. TECHNIQUE: Frontal and lateral views of the chest. COMPARISON: Chest radiograph on 12/15/2024 FINDINGS: Hardware: None. Lungs/pleura: Bilateral lower lung opacities may represent small pleural effusions with atelectasis versus pneumonia. Heart/mediastinum: Normal. No cardiomegaly. Soft tissues: Unremarkable. Bones: No acute fracture. Upper abdomen: Normal. IMPRESSION: Bilateral lower lung opacities may represent small pleural effusions with atelectasis versus pneumonia. Electronically signed by: Shirley Kelley M.D. 01/23/25 00:47 AM Discharge Plan Visit Data Chief Complaint: Cardiac Assessment Stated Complaint: CHEST TIGHT SINCE 5 PM, DIZZY, FEET SWOLLEN, COUGH ED Provider: Germán Adkins Discharge Problem: Pericardial effusion with cardiac tamponade, Thrombocytosis, Pseudohyponatremia, Acute hyperglycemia, Hypoalbuminemia, Chronic anemia, Hypomagnesemia, Hypocalcemia, Acute hypoxic respiratory failure Patient Disposition: Admitted As Inpatient Condition: Serious Discharge Instructions Interventions: ED Discharge Assessment Last Done: 01/23/25 03:34
[2025-01-22 22:03] LABS: Hematocrit (blood only) 26.2 % (42.0-52.0); Hemoglobin 7.4 g/dl (14.0-18.0); Immature Granulocytes # (auto) 0.12 K/uL (0.01-0.20); Immature Granulocytes % (auto) 0.8 %; Mean Corpuscular Hemoglobin 19.4 pg (25.0-34.0); Mean Corpuscular Volume 68.8 fL (80.0-100.0); RDW Standard Deviation 54.2 fL (36.4-46.3); Red Blood Count 3.81 M/uL (4.70-6.10); White Blood Count 14.74 K/ul (4.8-10.8)
[2025-01-22] MEDS: OPTIRAY 320 125ml IV ONE (22:17)
[2025-01-22 22:25] LABS: Alanine Aminotransferase 35.0 U/L (7-52); Albumin Globulin Ratio 0.4 (0.9-2); Albumin Level 2.1 gm/dl (3.4-5.0); Alkaline Phosphatase 210.0 U/L (34-104); Anion Gap 11.0 (3-11); Bilirubin,Total 0.2 mg/dl (0.2-1.0); Blood Urea Nitrogen 11.0 mg/dl (6-23); Calcium 8.3 mg/dl (8.6-10.3); Carbon Dioxide 26.0 mmol/L (21-32); Chloride 89.0 mmol/L (98-107); Creatinine Clr Calc Pharmacy 167.9 ml/min; Globulin 5.7 gm/dl (2.5-4.0); Glucose 310.0 mg/dl (70-99(Fasting)); Lipase 5.0 U/L (11-82); Magnesium 1.5 mg/dl (1.7-2.4); Potassium 4.0 mmol/L (3.5-5.1); Sodium 126.0 mmol/L (136-145); Total Protein 7.8 gm/dl (6.0-8.3)
[2025-01-22 22:27] LABS: Platelet Count 546 K/uL (130-400)
[2025-01-22 22:28] LABS: Anisocytosis Present; Microcytosis Present; Polychromasia 1+
[2025-01-22 22:36] LABS: INR 1.3 (0.9-1.1); Partial Thromboplastin Time 34 Seconds (21-31); Prothrombin Time 13.1 Seconds (9.0-12.0)
[2025-01-22] MEDS: SODIUM CHLORIDE 0.9% 1,000 ML IV ONE (23:04)
[2025-01-22] MEDS: MAGNESIUM SULFATE / D5W 1 GM/100 ML BAG IV SCH (23:05)
[2025-01-22] MEDS: PLASMA-LYTE A 500 ML IV ONE (23:05)
[2025-01-22] MEDS: CALCIUM GLUCONATE 1,000 MG/60 ML BAG IV STA (23:05)
--- NOTE | 2025-01-23 00:31 | XCELERA ---
[id number] [id number]
--- NOTE | 2025-01-23 00:48 | XRay Report ---
Exam(s): XR CXR 2 VIEWS EXAM: XR Chest, 2 Views CLINICAL HISTORY: Reason for exam: Chest pain, nonspecific. TECHNIQUE: Frontal and lateral views of the chest. COMPARISON: Chest radiograph on 12/15/2024 FINDINGS: Hardware: None. Lungs/pleura: Bilateral lower lung opacities may represent small pleural effusions with atelectasis versus pneumonia. Heart/mediastinum: Normal. No cardiomegaly. Soft tissues: Unremarkable. Bones: No acute fracture. Upper abdomen: Normal. IMPRESSION: Bilateral lower lung opacities may represent small pleural effusions with atelectasis versus pneumonia. Electronically signed by: Shirley Kelley M.D. 01/23/25 00:47 AM
--- NOTE | 2025-01-23 01:57 | History & Physical Report ---
Date of Service January 23, 2025 Assessment & Plan (1) Hypotension: Plan: Assessment and plan below following discussion of case with ED provider and reviewing patient history/pertinent normal/abnormal diagnostic test results. 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 hx PE/upper extremity DVT on Eliquis SVC thrombus status post thrombectomy metastatic cancer/peritoneal carcinomatosis on outpatient imaging, outpatient peritoneal nodule biopsy contemplated next week DM 2 insulin requiring, BSG markedly elevated, suboptimal control as of recent hemoglobin A1c of 11.7 last month Visual problems following [facility] confinement (binasal hemianopsia as per patient account), recent outpatient brain imaging requested by PCP "normal" as per family chronic anemia, hemoglobin at baseline past tobacco abuse Admit to ICU Cardiology consult re: pericardial tamponade (ED provider already in touch with Dr. Vuong.) N.p.o., hold Eliquis (last dose 01/22, 5 PM as per patient) in anticipation of drainage procedure CS, Cefepime, doxycycline Careful correction of sodium, hyponatremia workup Basal insulin adjusted for n.p.o. status, ISS BG goal 110-140 Outpatient ophthalmology eval for vision issues DVT prophylaxis. SCDs while Eliquis on hold Full code Patient requesting updates providers. Reynold Michelle Baldwin, contact #[phone]. Total critical care time was 45 minutes. Text document was generated using [employer] voice recognition software. It may contain grammatical or spelling errors. Kindly contact undersigned for clarification of any documentation item in question. History of Present Illness Chief Complaint: Chest pain Primary Care Provider: Peter Gong History obtained from patient, family, and records. Medical history significant for PE/upper extremity DVT on Eliquis, SVC thrombus status post thrombectomy/pericardial effusion/tamponade status post recent drainage ([facility] 12/2024), metastatic cancer/peritoneal carcinomatosis on outpatient imaging, DM 2 insulin requiring, chronic hyponatremia, chronic anemia (baseline hemoglobin of 7-8), past tobacco abuse. Recent [facility] confinement January 06 to 2024 following [facility] ER transfer for hypotension, SVC thrombosis, multiple PEs, and pericardial effusion in the setting of hypotension and hypoxemia. SVC thrombectomy done. Pericardial drain placed. Patient told to resume home Eliquis upon discharge. Outpatient peritoneal nodule biopsy to ascertain cause of metastatic cancer be done outpatient possibly first week of January as per discharge note. Patient with persistent dry cough symptoms following discharge from the hospital. Denies aspiration. Patient also noted blurred vision on the inner half of both eyes without headache or eye pain symptoms. Outpatient brain MRI requested by PCP normal as per patient/family account. Patient noted sudden onset pleuritic chest pain with SOB yesterday. Compliant with blood thinner. No abdominal pain or bleeding symptoms. SBP 90s upon arrival at the ER. Stat 2D echo done at the ER read as moderate circumferential pericardial effusion with evidence of RV compression during diastole, tachycardia, and dilated IVC with reduced inspiratory collapse consistent with tamponade physiology. 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 Allergies Allergy/AdvReac Type Severity Reaction Status Date / Time No Known Allergies Allergy Verified 01/22/25 23:35 Home Medications Medication Instructions Recorded Confirmed Type pravastatin 20 mg tablet 20 mg PO QAM 05/17/22 01/22/25 History metformin 500 mg tablet,extended 500 mg PO BIDM 05/11/24 01/22/25 History release 24 hr acetaminophen 500 mg tablet 1,000 mg PO Q6H PRN PAIN/FEVER 08/20/24 01/22/25 History (Tylenol Extra Strength) omeprazole 20 mg capsule,delayed 20 mg PO QAM 11/19/24 01/22/25 History release apixaban 5 mg tablet (Eliquis) 5 mg PO BID 12/27/24 01/22/25 History insulin glargine U-300 conc 300 50 unit subcut HS 12/27/24 01/22/25 History unit/mL (3 mL) subcutaneous pen (Toujeo Max U-300 SoloStar) codeine 10 mg-guaifenesin 100 mg/5 5 ml PO Q6H PRN COUGH/PAIN 01/22/25 01/22/25 History mL oral liquid oxycodone-acetaminophen 5 mg-325 1 tab PO Q6H PRN Pain, Severe 01/22/25 01/22/25 History mg tablet Past Med/Surg History Problem List (Updated 01/23/25 @ 04:57 by Eyal Lopez MD) Hypotension Abdominal carcinomatosis Acute hypoxic respiratory failure (Acute) Hypocalcemia (Acute) Hypomagnesemia (Acute) Chronic anemia (Acute) Pericardial effusion with cardiac tamponade (Acute) Hypoalbuminemia (Acute) Acute hyperglycemia (Acute) Pseudohyponatremia (Acute) Thrombocytosis (Acute) Acute deep vein thrombosis of upper extremity (Acute) Pulmonary embolism (Acute) Encounter for pre-operative examination Medical History DM type 2 (diabetes mellitus, type 2) HLD (hyperlipidemia) Chronic left-sided low back pain Surgical History History of tooth extraction History of inguinal hernia repair History of colonoscopy Family History Other No family history of adverse response to anesthesia Social History Smoking Status: Former smoker Tobacco Type: Cigarettes Cigarettes Per Day: 1 ppd; Second Hand Exposure: No; Do You Dip or Chew Tobacco: No; Hx Alcohol Use: No Hx Substance Use: No Preferred Language: Nigerien Communication Ability: Effective Embossing Unit Operator Required: No Beliefs That Will Affect Care: None Current Living Situation: Family Current Living Situation Comment: lives w/ and daughter Feels Safe at Home: Yes Assistive Devices: Glasses Review of Systems Review of Systems: As per HPI, all other systems reviewed and negative Physical Exam Physical Exam: GENERAL: Slightly uncomfortable, pleasant, looks older than stated age, incessant coughing, no respiratory distress SKIN: Pallor, warm HEENT: pale palpebral conjunctivae, no ptosis, dry buccal mucosa, nasal cannula in place NECK : Supple, no tenderness CHEST : Decreased breath sounds, no tenderness HEART : Tachycardic, no obvious murmurs ABDOMEN: Some distention, nontender EXTREMITIES : no LE swelling/tenderness, palpable pulses, no other conspicuous deformities noted NEUROLOGIC : Coherent, no facial asymmetry, no other gross focality Results & Data Results & Data Vital Signs (Past 12 Hours) Vital Signs Temp Pulse Pulse Resp BP BP Pulse Ox 01/23/25 01:00 121 H 18 89/64 L 90 01/23/25 00:00 132 H 18 114/73 92 01/22/25 23:02 132 H 18 105/78 93 01/22/25 22:36 145 H 01/22/25 22:24 18 94 01/22/25 22:22 18 87 L 01/22/25 22:03 18 93 01/22/25 21:55 147 H 16 98/75 L 93 01/22/25 21:55 93 01/22/25 21:55 01/22/25 21:28 37.1 C 147 H 18 98/61 L 93 O2 Del Method O2 Flow Rate 01/23/25 01:00 Nasal Cannula 2 01/23/25 00:00 Nasal Cannula 2 01/22/25 23:02 Nasal Cannula 2 01/22/25 22:36 01/22/25 22:24 Nasal Cannula 2 01/22/25 22:22 Room Air 01/22/25 22:03 Room Air 01/22/25 21:55 Room Air 01/22/25 21:55 Room Air 01/22/25 21:55 Room Air 01/22/25 21:28 Room Air Laboratory Results Laboratory Results WBC 14.74 K/ul (4.8-10.8) H 01/22/25 21:50 RBC 3.81 M/uL (4.70-6.10) L 01/22/25 21:50 Hgb 7.4 g/dl (14.0-18.0) L 01/22/25 21:50 POC Hgb 8.8 g/dl (14.0-18.0) L 01/22/25 22:11 Hct 26.2 % (42.0-52.0) L 01/22/25 21:50 POC Hct 26 % (42-52) L 01/22/25 22:11 MCV 68.8 fL (80.0-100.0) L 01/22/25 21:50 MCH 19.4 pg (25.0-34.0) L 01/22/25 21:50 MCHC 28.2 g/dL (32.0-36.0) L 01/22/25 21:50 RDW Std Deviation 54.2 fL (36.4-46.3) H 01/22/25 21:50 RDW Coeff of Cheng 22.2 % (11.5-14.5) H 01/22/25 21:50 Plt Count 546 K/uL (130-400) H 01/22/25 21:50 MPV 8.4 fL (9.4-12.4) L 01/22/25 21:50 Immature Gran % (Auto) 0.8 % 01/22/25 21:50 Neut % (Auto) 84.8 % 01/22/25 21:50 Lymph % (Auto) 6.0 % 01/22/25 21:50 [place] % (Auto) 8.1 % 01/22/25 21:50 Eos % (Auto) 0.1 % 01/22/25 21:50 Baso % (Auto) 0.2 % 01/22/25 21:50 Neut # (Auto) 12.49 K/uL (1.40-6.50) H 01/22/25 21:50 Lymph # (Auto) 0.88 K/uL (1.20-3.40) L 01/22/25 21:50 [place] # (Auto) 1.20 K/uL (0.11-0.59) H 01/22/25 21:50 Eos # (Auto) 0.02 K/uL (0.00-0.50) 01/22/25 21:50 Baso # (Auto) 0.03 K/uL (0.00-0.20) 01/22/25 21:50 Immature Gran # (Auto) 0.12 K/uL (0.01-0.20) 01/22/25:50 Absolute Nucleated RBC 0.03 K/uL (0.00-0.12) 01/22/25 21:50 Nucleated RBC % (auto) 0.2 % 01/22/25 21:50 Polychromasia 1+ 01/22/25 21:50 Anisocytosis Present 01/22/25 21:50 Microcytosis Present 01/22/25 21:50 PT 13.1 Seconds (9.0-12.0) H 01/22/25 21:50 INR 1.3 (0.9-1.1) H 01/22/25 21:50 APTT 34 Seconds (21-31) H 01/22/25 21:50 PTT Ratio 1.3 01/22/25 21:50 POC Sodium 128 mmol/L (135-144) L 01/22/25 22:11 Sodium 126 mmol/L (136-145) L 01/22/25 21:50 POC Potassium 3.9 mmol/L (3.3-5.0) 01/22/25 22:11 Potassium 4.0 mmol/L (3.5-5.1) 01/22/25 21:50 POC Chloride 89 mmol/L (101-112) L 01/22/25 22:11 Chloride 89 mmol/L (98-107) L 01/22/25 21:50 Carbon Dioxide 26 mmol/L (21-32) 01/22/25 21:50 POC Total CO2 28 mmol/L (24-31) 01/22/25 22:11 Anion Gap 11 (3-11) 01/22/25 21:50 POC Anion Gap 16.0 mmol/L (16-25) 01/22/25 22:11 POC BUN 10 mg/dl (7-18) 01/22/25 22:11 BUN 11 mg/dl (6-23) 01/22/25 21:50 Creatinine 0.60 mg/dl (0.6-1.4) 01/22/25 21:50 POC Creatinine 0.5 mg/dl (0.6-1.3) L 01/22/25 22:11 Est Cr Clr Drug Dosing 167.9 ml/min 01/22/25 21:50 eGFR 119.82 01/22/25 21:50 BUN/Creatinine Ratio 18.3 (10-20) 01/22/25 21:50 Glucose 310 mg/dl (70-99(Fasting)) H* 01/22/25 21:50 POC Glucose (other) 322 mg/dl (70-99) H 01/22/25 22:11 Lactate 1.7 mmol/L (0.4-2.0) 01/23/25 01:39 Calcium 8.3 mg/dl (8.6-10.3) L 01/22/25 21:50 POC Ioniz Calcium Vlad 1.04 mmol/l (1.12-1.32) L 01/22/25 22:11 Magnesium 1.5 mg/dl (1.7-2.4) L 01/22/25 21:50 Total Bilirubin 0.2 mg/dl (0.2-1.0) 01/22/25 21:50 AST 38 U/L (13-39) 01/22/25 21:50 ALT 35 U/L (7-52) 01/22/25 21:50 Alkaline Phosphatase 210 U/L (34-104) H 01/22/25 21:50 Troponin I High Sens 3.6 pg/ml (0-20) 01/22/25 21:50 B-Natriuretic Peptide 30 pg/ml (0-100) 01/22/25 21:50 Total Protein 7.8 gm/dl (6.0-8.3) 01/22/25 21:50 Albumin 2.1 gm/dl (3.4-5.0) L 01/22/25 21:50 Globulin 5.7 gm/dl (2.5-4.0) H 01/22/25 21:50 Albumin/Globulin Ratio 0.4 (0.9-2) L 01/22/25 21:50 Lipase 5 U/L (11-82) L 01/22/25 21:50 Impressions Chest X-Ray 01/22/25 21:34 Exam(s): XR CXR 2 VIEWS EXAM: XR Chest, 2 Views CLINICAL HISTORY: Reason for exam: Chest pain, nonspecific. TECHNIQUE: Frontal and lateral views of the chest. COMPARISON: Chest radiograph on 12/15/2024 FINDINGS: Hardware: None. Lungs/pleura: Bilateral lower lung opacities may represent small pleural effusions with atelectasis versus pneumonia. Heart/mediastinum: Normal. No cardiomegaly. Soft tissues: Unremarkable. Bones: No acute fracture. Upper abdomen: Normal. IMPRESSION: Bilateral lower lung opacities may represent small pleural effusions with atelectasis versus pneumonia. Electronically signed by: Shirley Kelley M.D. 01/23/25 00:47 AM Diagnostic Findings EKG as per my interpretation :Rate 150, sinus tachycardia, normal axis, T wave abnormalities inferior leads
[2025-01-23] MEDS: SODIUM CHLORIDE 0.9% 500 ML IV SCH (02:33)
[2025-01-23] MEDS ORDERED: MoRPHine SULFATE 4 MG/ML 1 ML CARP\\VIAL IV PRN (02:41)
[2025-01-23] MEDS ORDERED: PROMETHAZINE 6.25 MG/50.25 ML BAG IV PRN (02:41)
[2025-01-23] MEDS ORDERED: LORazepam 0.5 MG TAB PO PRN (02:41)
[2025-01-23] MEDS: LACTATED RINGER'S 1,000 ML IV SCH (02:43)
[2025-01-23] MEDS: SODIUM CHLORIDE 0.9% 500 ML IV ONE (02:45)
[2025-01-23 03:20] LABS: Appearance Urine Clear (Clear); Bacteria Urine Automated None Seen (None Seen); Cast Urine Automated 0-2 /lpf (0-2); Epithelial Cell Urine Auto 0-2 /hpf (0-2); Glucose Urine UA Trace (Negative); RBC Urine Automated 0-2 /hpf (0-2); WBC Urine Automated 0-5 /hpf (0-5)
--- NOTE | 2025-01-23 03:44 | Cardiology Consultation ---
Date of Consultation January 23, 2025 Assessment & Plan (1) Pericardial effusion with cardiac tamponade: Hemodynamically the patient is stable to improved. This also includes improvement in his symptoms. Unclear how rapidly he has reaccumulated pericardial fluid from his recent pericardiocentesis and admission at [facility]. That was about 15 days ago and we do not have any imaging or report of residual pericardial effusion post pericardiocentesis. However, fairly significant reaccumulation is presumed. Given his high likelihood of cancer and this recurrent pericardial effusion in a relatively short amount of time suggest that he will remain at risk for recurrence. A pericardial window would be a more durable treatment but [facility] refused to accept the patient on transfer given question of stability. I have recommended to the patient that we proceed with pericardiocentesis this morning. He needs to remain off of anticoagulation until after we have completed the procedure. I am trying to wait a few more hours to reduce the likelihood of bleed as well as have the full support team available to perform the procedure. He will notify his nurse in the ER or the ICU should he begin to feel poorly in which case emergent pericardiocentesis will be performed. (2) Pulmonary embolism: He underwent thrombectomy not sure if there is residual thrombus and if so to what degree. This is relevant as a pertains to risk of remaining off of anticoagulation even for short time. My preference will be to hold the anticoagulation until the pericardiocentesis is completed but immediately placed him back on anticoagulation postprocedure. 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 Also, cannot exclude a pulmonary primary cancer given his smoking history. He also appears to have pericardial effusions bilaterally. (3) Abdominal carcinomatosis: Unknown etiology at this point. A biopsy is necessary. Once we have treated the pericardial effusion further planning for his completed workup is necessary. I would add that the patient will be best served utilizing a single hospital system rather than jumping from hospital to hospital where coordination of care becomes more difficult. I would recommend that while hospitalized here we have case management consulted and discuss with the patient how we can best meet his needs both medically and in coordination of his care. Patient told me that he did not want to return to [facility]. I am not sure if he meant in the short-term or long-term as well. History of Present Illness History of Present Illness 49-year-old gentleman with a complex medical history presents with recurrent cough and shortness of breath with positional chest discomfort. Briefly, earlier this month the patient presented with recurrent episodes of syncope. Ultimately, the etiology was determined to be extensive VTE including upper extremity DVT and pulmonary embolism. CT scan also suggested abdominal carc inomatosis. He was seen and treated at [facility] where he had thrombectomy, pericardiocentesis, and a plan was made for biopsy as they worked up his carcinomatosis. He was evidently discharged after 4 to 5 days treatment before biopsy was completed. Plan was for him to undergo biopsy and further workup locally. He follows with Dr. Gong who is his primary care provider. Reviewing the records it sounds like the patient has not follow very closely and previously left AMA. Also, he has been seen at several medical centers including [facility], [facility], , and [facility]. Therefore, records are not easily available unless they have been scanned to our own system. Patient presented today with the above symptoms and stat echo was requested and performed. The echo was read by Dr. Perez and suggested evidence of cardiac tamponade with recurrence of the pericardial effusion. This was felt to be moderate in size. Fortunately, the patient has responded well to IV fluid resuscitation and has had resolution of his tachypnea. He still has chest discomfort if he lies flat. He has baseline low normal blood pressure. His blood pressure has improved with normal saline IV fluid 1-1/2 L and he has tachycardia has also improved. He is maintaining systolic blood pressure in the upper 90s. His diastolics have been in the low 60s. Patient tells me he is feeling better without significant dyspnea. He last took his Eliquis yesterday at 5 PM. He is being [facility] and the ICU. His primary complaint is of continuous chronic cough which predated his recent admission to [facility] and continued afterwards. He denies recurrence of syncope, near syncope, PND, and edema. I discussed with him the echo evidence of cardiac tamponade and that if left untreated that would result in . I explained the procedure of pericardiocentesis of which he was already familiar from his recent admission at [facility]. The risk, benefits, and alternatives were discussed in detail. Risks include but are not limited to , stroke, ND, adverse drug reaction, infection, bleeding, and the need for emergent surgery. He understands that we do not have a thoracic surgeon available at this institution and any need for thoracic surgeon would require transfer to a tertiary center. I also discussed his increased risk of bleeding given his recent Eliquis dosing. He understands that in all likelihood a pericardial window would be his best option as he has high likelihood of recurrent pericardial effusion. I have reviewed his CT scan and the associated report. To my eye that pericardial effusion is approachable for pericardiocent esis. No mention of the pericardial effusion or size was made in the radiology report. Allergies Allergy/AdvReac Type Severity Reaction Status Date / Time No Known Allergies Allergy Verified 01/22/25 23:35 Home Medications Medication Instructions Recorded Confirmed Type pravastatin 20 mg tablet 20 mg PO QAM 05/17/22 01/22/25 History metformin 500 mg tablet,extended 500 mg PO BIDM 05/11/24 01/22/25 History release 24 hr acetaminophen 500 mg tablet 1,000 mg PO Q6H PRN PAIN/FEVER 08/20/24 01/22/25 History (Tylenol Extra Strength) omeprazole 20 mg capsule,delayed 20 mg PO QAM 11/19/24 01/22/25 History release apixaban 5 mg tablet (Eliquis) 5 mg PO BID 12/27/24 01/22/25 History insulin glargine U-300 conc 300 50 unit subcut HS 12/27/24 01/22/25 History unit/mL (3 mL) subcutaneous pen (Toujeo Max U-300 SoloStar) codeine 10 mg-guaifenesin 100 mg/5 5 ml PO Q6H PRN COUGH/PAIN 01/22/25 01/22/25 History mL oral liquid oxycodone-acetaminophen 5 mg-325 1 tab PO Q6H PRN Pain, Severe 01/22/25 01/22/25 History mg tablet Patient History Medical History DM type 2 (diabetes mellitus, type 2) HLD (hyperlipidemia) Chronic left-sided low back pain Surgical History History of tooth extraction History of inguinal hernia repair History of colonoscopy Family History Other No family history of adverse response to anesthesia Social History Smoking Status: Former smoker Tobacco Type: Cigarettes Cigarettes Per Day: 1 ppd; Second Hand Exposure: Yes ( smokes); Do You Dip or Chew Tobacco: No; Hx Alcohol Use: Yes Alcohol type: beer and hard liquor Hx Substance Use: No Preferred Language: Guyanese Communication Ability: Effective Lithopress Operator Required: No Beliefs That Will Affect Care: None Current Living Situation: Spouse Feels Safe at Home: Yes Assistive Devices: Denture - Upper, Denture - Lower and Glasses Review of Systems Review of Systems: Negative except as per HPI Physical Exam Constitutional: Chronically ill-appearing middle-age man. No acute distress. Initially lying with the head of the bed slightly inclined. Neck: JVD to angle of jaw bilaterally Respiratory: Clear except at the bases bilaterally. Scattered crackles. Cardiovascular: Regular rhythm. Mildly tachycardic rate (110s). Distant heart sounds. Musculoskeletal: no cyanosis or clubbing, extremities motor strength 5/5 Neurologic: Cognition is intact. Speech is fluent. No focal deficits. Psychiatric: A+Ox3, euthymic affect Results & Data Vital Signs (Past 12 Hours) Vital Signs Temp Pulse Pulse Resp BP BP Pulse Ox 01/23/25 03:00 97/61 L 01/23/25 02:51 123 H 15 95 01/23/25 02:45 122 H 20 96 01/23/25 02:33 124 H 24 95 01/23/25 02:30 98/67 L 01/23/25 02:21 122 H 14 97 01/23/25 02:12 122 H 17 94 01/23/25 02:00 106/75 01/23/25 01:57 124 H 12 93 01/23/25 01:51 128 H 31 H 95 01/23/25 01:30 96/64 L 01/23/25 01:30 96/64 L 01/23/25 01:30 124 H 27 H 90 01/23/25 01:27 119 H 25 H 92 01/23/25 01:10 106/69 01/23/25 01:10 106/69 01/23/25 01:09 122 H 22 89 L 01/23/25 01:00 89/64 L 01/23/25 01:00 89/64 L 01/23/25 01:00 121 H 18 89/64 L 90 01/23/25 00:57 121 H 15 91 01/23/25 00:30 100/70 01/23/25 00:24 128 H 25 H 93 01/23/25 00:15 125 H 16 94 01/23/25 00:09 127 H 20 95 01/23/25 00:00 132 H 18 114/73 92 01/22/25 23:51 126 H 25 H 94 01/22/25 23:18 138 H 28 H 94 01/22/25 23:09 132 H 25 H 93 01/22/25 23:02 105/78 01/22/25 23:02 132 H 18 105/78 93 01/22/25 22:57 136 H 23 94 01/22/25 22:36 145 H 01/22/25 22:30 92/69 L 01/22/25 22:28 93/63 L 01/22/25 22:24 18 94 01/22/25 22:22 18 87 L 01/22/25 22:03 18 93 01/22/25 21:55 147 H 16 98/75 L 93 01/22/25 21:55 93 01/22/25 21:55 01/22/25 21:28 37.1 C 147 H 18 98/61 L 93 O2 Del Method O2 Flow Rate 01/23/25 03:00 01/23/25 02:51 01/23/25 02:45 01/23/25 02:33 01/23/25 02:30 01/23/25 02:21 01/23/25 02:12 01/23/25 02:00 01/23/25 01:57 01/23/25 01:51 01/23/25 01:30 01/23/25 01:30 01/23/25 01:30 01/23/25 01:27 01/23/25 01:10 01/23/25 01:10 01/23/25 01:09 01/23/25 01:00 01/23/25 01:00 01/23/25 01:00 Nasal Cannula 2 01/23/25 00:57 01/23/25 00:30 01/23/25 00:24 01/23/25 00:15 01/23/25 00:09 01/23/25 00:00 Nasal Cannula 2 01/22/25 23:51 01/22/25 23:18 01/22/25 23:09 01/22/25 23:02 01/22/25 23:02 Nasal Cannula 2 01/22/25 22:57 01/22/25 22:36 01/22/25 22:30 01/22/25 22:28 01/22/25 22:24 Nasal Cannula 2 01/22/25 22:22 Room Air 01/22/25 22:03 Room Air 01/22/25 21:55 Room Air 01/22/25 21:55 Room Air 01/22/25 21:55 Room Air 01/22/25 21:28 Room Air PG Care Time/CCT Total # of Minutes Spent Total Time Spent with Patient: Total time spent is greater than 50% in coordination of care (as documented) at patient's floor/unit and/or counseling patient: Critical Care Time: Yes A total of 90 minutes was spent in the review of records, discussion with the patient, physical exam, review of the imaging (echo and CT scan), discussion with the primary care team in the ER, discussion with ICU nursing, formulation and implementation of a plan of care and all associated documentation. Coding Level of Care Code 54004 CRITICAL CARE 1ST 30-74M Diagnoses Pericardial effusion with cardiac tamponade I31.39; I31.4 Pulmonary embolism I26.99 Abdominal carcinomatosis C76.2 Additional Codes Critical Care Time - Critical Care Time: Yes ([id number]) Time Spent (min) 90
--- NOTE | 2025-01-23 04:00 | Critical Care Consultation ---
Date of Consultation January 23, 2025 Assessment & Plan (1) Pericardial effusion with cardiac tamponade: (2) Chronic anemia: (3) Acute hypoxic respiratory failure: (4) Abdominal carcinomatosis: (5) Pulmonary embolism: Plan Reason Critically Ill: 1. Acute hypoxemic respiratory failure 2/2 #2 2. Pericardial effusion with tamponade physiology 3. Abdominal carcinomatosis 4. Acute on chronic anemia 5. Hyperglycemia 6. Elevated WBC likely leukemoid reaction, rule out infection Neuro - CAM ICU: Negative RASS GOAL 0 APAP PRN pain/fever Avoid sedating medications Cardiac - TTE as above MAP goal > 65mmHg, start norepinephrine if needed Continue mIVF for preload Dr. Vuong to take patient for centesis this AM first thing Tachycardia is compensatory, do not give negative inotropes Admit EKG [] Respiratory - HOB up SpO2 goal 92%, do not over-oxygenate Encourage deep breathing Aggressive pulmonary hygiene once effusion is drained GI - Diet: NPO except meds pending procedure SUP: Home H2B Bowel regimen: Held for now RENAL/LYTES - Replete electrolytes as indicated No current indication for mcmahan catheter Bladder scan and straight cath PRN ENDO - BG 140-180 per SCCM guidelines ISS if needed while inpatient Last A1c 11.7% HEME - Eliquis held pending procedure Will be restarted promptly post-op Trend H/H ID - Difficulty ruling out pneumonia on CXR Will monitor off antibiotics until stable post-op given reaction to cefepime bolus MRSA nares pending LINES/TUBES/DRAINS - PIV x2 DVT PROPHYLAXIS - Held. Add SCDs DISPOSITION - ICU, possible transfer for pericardial window CODE STATUS - FULL I have personally spent 36 minutes of critical care time in the direct management of this patient. This is a life/limb threatening event. This includes time spent evaluating patient, direct bedside care, chart review, placing orders, interpretation of diagnostic studies, discussion with consultants, patient, and family members, as well as other required patient management activities. This time is exclusive of all separately billable procedures, and teaching time and separate from and in addition to any other critical care service time. Thank you for allowing us to participate in the care of this patient. Please refer to my attending physician's documentation for any further recommendations. Supervising Physician Co-Signing Physician Notes IPrimitivo MD, reviewed the physical exam, assessment, plan, and management as documented by the Advanced Care Provider IGLESIA Monahan, for this patient encounter. I discussed the case with them, confirmed the findings, and I concur with the proposed plan of care. I was available for consultation throughout the encounter and provided guidance as needed. 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 Unable to lay flat. Requiring 3L O2 via NC in ED. Relative hypotension treated with IVF boluses. Emergent TTE read by Cardiology, indicating moderate effusion with tamponade physiology. Remainder of work-up notable for relative hyponatremia, hyperglycemia, bilateral pleural effusions with atelectasis. On-call App[facility] consulted, will perform pericardiocentesis urgently. Patient last took Eliquis 10 PM. Admitted to ICU for continuation of care and close monitoring pending procedure. Patient seen in ICU 111. He is AAOx3. Tachypneic but not in acute distress. SBP > 100, tachycardic to 120s. SpO2 92% on 4L NC O2. ROS + dyspnea, chest discomfort, weakness. Otherwise negative. Patient quit smoking cigarettes 3 weeks ago due to feeling unwell. Allergies Allergy/AdvReac Type Severity Reaction Status Date / Time No Known Allergies Allergy Verified 01/22/25 23:35 Home Medications Medication Instructions Recorded Confirmed Type pravastatin 20 mg tablet 20 mg PO QAM 05/17/22 01/22/25 History metformin 500 mg tablet,extended 500 mg PO BIDM 05/11/24 01/22/25 History release 24 hr acetaminophen 500 mg tablet 1,000 mg PO Q6H PRN PAIN/FEVER 08/20/24 01/22/25 History (Tylenol Extra Strength) omeprazole 20 mg capsule,delayed 20 mg PO QAM 11/19/24 01/22/25 History release apixaban 5 mg tablet (Eliquis) 5 mg PO BID 12/27/24 01/22/25 History insulin glargine U-300 conc 300 50 unit subcut HS 12/27/24 01/22/25 History unit/mL (3 mL) subcutaneous pen (Toujeo Max U-300 SoloStar) codeine 10 mg-guaifenesin 100 mg/5 5 ml PO Q6H PRN COUGH/PAIN 01/22/25 01/22/25 History mL oral liquid oxycodone-acetaminophen 5 mg-325 1 tab PO Q6H PRN Pain, Severe 01/22/25 01/22/25 History mg tablet Patient History Medical History DM type 2 (diabetes mellitus, type 2) HLD (hyperlipidemia) Chronic left-sided low back pain Surgical History History of tooth extraction History of inguinal hernia repair History of colonoscopy Family History Other No family history of adverse response to anesthesia Social History Smoking Status: Former smoker Tobacco Type: Cigarettes Cigarettes Per Day: 1 ppd; Second Hand Exposure: No; Do You Dip or Chew Tobacco: No; Hx Alcohol Use: No Hx Substance Use: No Preferred Language: Burkinan Communication Ability: Effective Pneumatic Tube Repairer Required: No Beliefs That Will Affect Care: None Current Living Situation: Family Current Living Situation Comment: lives w/ and daughter Feels Safe at Home: Yes Assistive Devices: Glasses Review of Systems Review of Systems: All systems reviewed & are unremarkable except as noted in Subjective Physical Exam Constitutional: + thin, + frail appearing and cooperativ e; no acute distress Eyes: PERRL, conjunctivae normal, anicteric sclerae Neck: trachea midline, no thyromegaly Respiratory: + tachypneic Auscultation: + diminish ed lung sounds and + crackles; no rhonchi and no wheezes Cardiovascular: Rate/Rhythm: regular rhythm and + tachycardic Heart Sounds: no murmur Vessels: + JVD; no carotid bruit Extremities: + edema 1+ edema RLE Gastrointestinal (Abdomen): normal bowel sounds, soft, nontender, no hepatosplenomegaly Musculoskeletal: no cyanosis or clubbing, extremities motor strength 5/5 Skin: no rashes, warm and dry lips slightly cyanotic Neurologic: PERRL, EOMI, accommodation nl, no face palsy, no dysarthria Genitourinary: Deferred Results & Data Results & Data Vital Signs (Past 12 Hours) Vital Signs Temp Pulse Pulse Resp BP BP Pulse Ox 01/23/25 03:34 123 H 20 98/74 L 93 01/23/25 03:00 97/61 L 01/23/25 02:51 123 H 15 95 01/23/25 02:45 122 H 20 96 01/23/25 02:33 124 H 24 95 01/23/25 02:30 98/67 L 01/23/25 02:21 122 H 14 97 01/23/25 02:12 122 H 17 94 01/23/25 02:00 106/75 01/23/25 01:57 124 H 12 93 01/23/25 01:51 128 H 31 H 95 01/23/25 01:30 96/64 L 01/23/25 01:30 96/64 L 01/23/25 01:30 124 H 27 H 90 01/23/25 01:27 119 H 25 H 92 01/23/25 01:10 106/69 01/23/25 01:10 106/69 01/23/25 01:09 122 H 22 89 L 01/23/25 01:00 89/64 L 01/23/25 01:00 89/64 L 01/23/25 01:00 121 H 18 89/64 L 90 01/23/25 00:57 121 H 15 91 01/23/25 00:30 100/70 01/23/25 00:24 128 H 25 H 93 01/23/25 00:15 125 H 16 94 01/23/25 00:09 127 H 20 95 01/23/25 00:00 132 H 18 114/73 92 01/22/25 23:51 126 H 25 H 94 01/22/25 23:18 138 H 28 H 94 01/22/25 23:09 132 H 25 H 93 01/22/25 23:02 105/78 01/22/25 23:02 132 H 18 105/78 93 01/22/25 22:57 136 H 23 94 01/22/25 22:36 145 H 01/22/25 22:30 92/69 L 01/22/25 22:28 93/63 L 01/22/25 22:24 18 94 01/22/25 22:22 18 87 L 01/22/25 22:03 18 93 01/22/25 21:55 147 H 16 98/75 L 93 01/22/25 21:55 93 01/22/25 21:55 01/22/25 21:28 37.1 C 147 H 18 98/61 L 93 O2 Del Method O2 Flow Rate 01/23/25 03:34 Nasal Cannula 3 01/23/25 03:00 01/23/25 02:51 01/23/25 02:45 01/23/25 02:33 01/23/25 02:30 01/23/25 02:21 01/23/25 02:12 01/23/25 02:00 01/23/25 01:57 01/23/25 01:51 01/23/25 01:30 01/23/25 01:30 01/23/25 01:30 01/23/25 01:27 01/23/25 01:10 01/23/25 01:10 01/23/25 01:09 01/23/25 01:00 01/23/25 01:00 01/23/25 01:00 Nasal Cannula 2 01/23/25 00:57 01/23/25 00:30 01/23/25 00:24 01/23/25 00:15 01/23/25 00:09 01/23/25 00:00 Nasal Cannula 2 01/22/25 23:51 01/22/25 23:18 01/22/25 23:09 01/22/25 23:02 01/22/25 23:02 Nasal Cannula 2 01/22/25 22:57 01/22/25 22:36 01/22/25 22:30 01/22/25 22:28 01/22/25 22:24 Nasal Cannula 2 01/22/25 22:22 Room Air 01/22/25 22:03 Room Air 01/22/25 21:55 Room Air 01/22/25 21:55 Room Air 01/22/25 21:55 Room Air 01/22/25 21:28 Room Air Laboratory Results Reviewed Diagnostic Findings Reviewed Medications Administered See MAR Coding Level of Care Code 63530 IN/OBS CONSULT LVL 2,35M Diagnoses Pericardial effusion with cardiac tamponade I31.39; I31.4 Chronic anemia D64.9 Acute hypoxic respiratory failure J96.01 Abdominal carcinomatosis C76.2 Pulmonary embolism I26.99 Time Spent (min) 36
[2025-01-23 04:02] LABS: Anion Gap 7.0 (3-11); Blood Urea Nitrogen 10.0 mg/dl (6-23); Calcium 8.3 mg/dl (8.6-10.3); Carbon Dioxide 30.0 mmol/L (21-32); Chloride 92.0 mmol/L (98-107); Creatinine Clr Calc Pharmacy 201.5 ml/min; Glucose 249.0 mg/dl (70-99(Fasting)); Magnesium 2.1 mg/dl (1.7-2.4); Potassium 3.5 mmol/L (3.5-5.1); Sodium 129.0 mmol/L (136-145)
[2025-01-23 04:02] LABS: Chlamydia pneumoniae PCR Not Detected (NotDetected); Coronavirus 229E PCR Not Detected (NotDetected); Coronavirus CoV-2 (COVID19)PCR Not Detected (NotDetected); Coronavirus HKU1 PCR Not Detected (NotDetected); Coronavirus NL63 PCR Not Detected (NotDetected); Coronavirus OC43PCR Not Detected (NotDetected); Human Metapneumovirus PCR Not Detected (NotDetected); Parainfluenza Virus 1 PCR Not Detected (NotDetected); Parainfluenza Virus 2 PCR Not Detected (NotDetected); Parainfluenza Virus 3 PCR Not Detected (NotDetected); Parainfluenza Virus 4 PCR Not Detected (NotDetected); Respiratory Syncytial VirusPCR Not Detected (NotDetected); Rhinovirus/Enterovirus PCR Not Detected (NotDetected)
[2025-01-23 04:03] LABS: Hematocrit (blood only) 23.5 % (42.0-52.0); Hemoglobin 6.6 g/dl (14.0-18.0); Mean Corpuscular Hemoglobin 19.2 pg (25.0-34.0); Mean Corpuscular Volume 68.5 fL (80.0-100.0); Platelet Count 535 K/uL (130-400); RDW Standard Deviation 54.2 fL (36.4-46.3); Red Blood Count 3.43 M/uL (4.70-6.10); White Blood Count 13.24 K/ul (4.8-10.8)
[2025-01-23] MEDS ORDERED: GLUCOSE 10 TAB/TUBE PO PRN (04:06)
[2025-01-23] MEDS ORDERED: GLUCAGON FOR INJ 1 MG VIAL SQ PRN (04:06)
[2025-01-23] MEDS ORDERED: CARBOHYDRATES FOR HYPOGLYCEMIA PO PRN (04:06)
[2025-01-23] MEDS ORDERED: GLUCOSE 40% GEL 15 GM TUBE PO PRN (04:06)
[2025-01-23] MEDS ORDERED: DEXTROSE 50% 50 ML SYRINGE IV PRN (04:06)
[2025-01-23] MEDS: LANTUS PER UNIT CHARGE SQ SCH (04:15)
[2025-01-23 04:16] LABS: Partial Thromboplastin Time 33 Seconds (21-31)
[2025-01-23 04:23] LABS: Anisocytosis Present; Immature Granulocytes # (auto) 0.15 K/uL (0.01-0.20); Immature Granulocytes % (auto) 1.1 %; Microcytosis Present; Polychromasia 2+
[2025-01-23] MEDS ORDERED: SODIUM CHLORIDE 0.9% 100 ML IV PRN (04:34)
[2025-01-23] MEDS: INSULIN ASPART PER UNIT CHARGE SC SCH (04:44)
[2025-01-23] MEDS: CEFEPIME 2000MG 2,000 MG/20 ML SYR IV SCH (04:46)
[2025-01-23] MEDS: DOXYCYCLINE HYCLATE 100 MG in DEXTROSE 5% MINI-B 100 ML IV STA (04:46)
[2025-01-23] MEDS: ONDANSETRON INJ 2 MG/ML 2 ML VIAL IV STA (05:04)
[2025-01-23] MEDS: ACETAMINOPHEN 325 MG TAB PO PRN (08:36)
--- NOTE | 2025-01-23 09:47 | Pre Anesthesia Assessment ---
Date of Service January 23, 2025 Pre Sedation Assessment Vital Signs Temp Pulse Pulse Resp BP BP BP 01/23/25 09:29 111 H 14 102/71 01/23/25 09:21 114 H 14 102/71 01/23/25 08:51 36.8 C 115 H 22 113/73 01/23/25 07:51 36.9 C 113 H 22 115/73 01/23/25 07:36 115 H 14 01/23/25 07:30 102/76 01/23/25 07:21 115 H 27 H 01/23/25 07:21 36.9 C 116 H 26 H 95/69 L 01/23/25 07:15 118 H 23 01/23/25 07:15 95/69 L 01/23/25 07:06 36.8 C 118 H 24 98/69 L 01/23/25 07:04 98/69 L 01/23/25 07:00 106/71 01/23/25 06:57 117 H 22 01/23/25 06:48 37.6 C H 119 H 18 112/72 01/23/25 06:45 120 H 26 H 01/23/25 06:45 112/72 01/23/25 06:45 112/72 01/23/25 06:42 119 H 23 01/23/25 06:30 119/71 01/23/25 06:30 119/71 01/23/25 06:27 121 H 29 H 01/23/25 06:15 111/66 01/23/25 06:15 111/66 01/23/25 06:09 123 H 28 H 01/23/25 06:03 121 H 27 H 01/23/25 06:00 103/66 01/23/25 06:00 103/66 01/23/25 05:48 120 H 35 H 01/23/25 05:45 101/71 01/23/25 05:45 101/71 01/23/25 05:45 101/71 01/23/25 05:45 101/71 01/23/25 05:45 123 H 25 H 01/23/25 05:39 127 H 14 01/23/25 05:31 01/23/25 05:30 109/68 01/23/25 05:24 123 H 28 H 01/23/25 05:15 108/74 01/23/25 05:09 121 H 15 01/23/25 05:03 122 H 14 01/23/25 05:00 97/69 L 01/23/25 04:54 128 H 22 01/23/25 04:52 103/66 01/23/25 04:51 126 H 28 H 01/23/25 04:30 124 H 23 01/23/25 04:28 127 H 01/23/25 04:15 36.7 C 123 H 24 101/67 01/23/25 04:03 128 H 25 H 101/67 01/23/25 04:00 01/23/25 03:34 123 H 20 98/74 L 01/23/25 03:00 97/61 L 01/23/25 02:51 123 H 15 01/23/25 02:45 122 H 20 01/23/25 02:33 124 H 24 01/23/25 02:30 98/67 L 01/23/25 02:21 122 H 14 01/23/25 02:12 122 H 17 01/23/25 02:00 106/75 01/23/25 01:57 124 H 12 01/23/25 01:51 128 H 31 H 01/23/25 01:30 96/64 L 01/23/25 01:30 96/64 L 01/23/25 01:30 124 H 27 H 01/23/25 01:27 119 H 25 H 01/23/25 01:10 106/69 01/23/25 01:10 106/69 01/23/25 01:09 122 H 22 01/23/25 01:00 89/64 L 01/23/25 01:00 89/64 L 01/23/25 01:00 121 H 18 89/64 L 01/23/25 00:57 121 H 15 01/23/25 00:30 100/70 01/23/25 00:24 128 H 25 H 01/23/25 00:15 125 H 16 01/23/25 00:09 127 H 20 01/23/25 00:00 132 H 18 114/73 01/22/25 23:51 126 H 25 H 01/22/25 23:18 138 H 28 H 01/22/25 23:09 132 H 25 H 01/22/25 23:02 105/78 01/22/25 23:02 132 H 18 105/78 01/22/25 22:57 136 H 23 01/22/25 22:36 145 H 01/22/25 22:30 92/69 L 01/22/25 22:28 93/63 L 01/22/25 22:24 18 01/22/25 22:22 18 01/22/25 22:03 18 01/22/25 21:55 147 H 16 98/75 L 01/22/25 21:55 01/22/25 21:55 01/22/25 21:28 37.1 C 147 H 18 98/61 L Pulse Ox O2 Del Method O2 Flow Rate 01/23/25 09:29 94 01/23/25 09:21 96 Room Air 01/23/25 08:51 93 01/23/25 07:51 95 01/23/25 07:36 97 01/23/25 07:30 01/23/25 07:21 94 01/23/25 07:21 92 5 01/23/25 07:15 95 01/23/25 07:15 01/23/25 07:06 93 01/23/25 07:04 01/23/25 07:00 01/23/25 06:57 95 01/23/25 06:48 94 5 01/23/25 06:45 94 01/23/25 06:45 01/23/25 06:45 01/23/25 06:42 94 01/23/25 06:30 01/23/25 06:30 01/23/25 06:27 91 01/23/25 06:15 01/23/25 06:15 01/23/25 06:09 92 01/23/25 06:03 93 01/23/25 06:00 01/23/25 06:00 01/23/25 05:48 91 01/23/25 05:45 01/23/25 05:45 01/23/25 05:45 01/23/25 05:45 01/23/25 05:45 94 01/23/25 05:39 95 01/23/25 05:31 90 Nasal Cannula 5 01/23/25 05:30 01/23/25 05:24 89 L 4 01/23/25 05:15 01/23/25 05:09 93 01/23/25 05:03 95 01/23/25 05:00 01/23/25 04:54 92 01/23/25 04:52 01/23/25 04:51 93 01/23/25 04:30 91 01/23/25 04:28 01/23/25 04:15 94 Nasal Cannula 2 01/23/25 04:03 94 01/23/25 04:00 Nasal Cannula 3 01/23/25 03:34 93 Nasal Cannula 3 01/23/25 03:00 01/23/25 02:51 95 01/23/25 02:45 96 01/23/25 02:33 95 01/23/25 02:30 01/23/25 02:21 97 01/23/25 02:12 94 01/23/25 02:00 01/23/25 01:57 93 01/23/25 01:51 95 01/23/25 01:30 01/23/25 01:30 01/23/25 01:30 90 01/23/25 01:27 92 01/23/25 01:10 01/23/25 01:10 01/23/25 01:09 89 L 01/23/25 01:00 01/23/25 01:00 01/23/25 01:00 90 Nasal Cannula 2 01/23/25 00:57 91 01/23/25 00:30 01/23/25 00:24 93 01/23/25 00:15 94 01/23/25 00:09 95 01/23/25 00:00 92 Nasal Cannula 2 01/22/25 23:51 94 01/22/25 23:18 94 01/22/25 23:09 93 01/22/25 23:02 01/22/25 23:02 93 Nasal Cannula 2 01/22/25 22:57 94 01/22/25 22:36 01/22/25 22:30 01/22/25 22:28 01/22/25 22:24 94 Nasal Cannula 2 01/22/25 22:22 87 L Room Air 01/22/25 22:03 93 Room Air 01/22/25 21:55 93 Room Air 01/22/25 21:55 93 Room Air 01/22/25 21:55 Room Air 01/22/25 21:28 93 Room Air Cardiovascular RRR, no murmur, no edema + regular rate Respiratory normal respiratory effort, lungs clear to auscultation Pre-Sedation Airway Assessment Smoking Status: Former smoker Hx Sleep Apnea: No Short, Thick Neck: No Thyromental Distance: > or= 3.5 Finger Breadths Oral Cavity: + Dentures Mallampati Class: III ASA: ASA3 NPO Status Date of Last Intake of Fluids: 01/22/25 Time of Last Intake of Fluids: 08:00 Date of Last Intake of Solid Food: 01/22/25 Time of Last Intake of Solid Foods: 08:00 Notes The planned sedation has been discussed with the patient. Informed Consent was obtained. I have identified the patient, determined the appropriateness of sedation and have assessed the patient immediately prior to the procedure. All medicine(s) and interventions are by my order.
[2025-01-23] MEDS: LIDOCAINE 1% LOCAL 20 ML VIAL ONE (10:19)
[2025-01-23] MEDS: MIDAZOLAM HCL 1 MG/ML 2ML VIAL ONE (10:23)
--- NOTE | 2025-01-23 10:29 | Post Anesthesia Assessment ---
Date of Service January 23, 2025 Post Sedation Assessment Vital Signs Temp Pulse Pulse Resp BP BP BP 01/23/25 09:29 111 H 14 102/71 01/23/25 09:21 114 H 14 102/71 01/23/25 08:51 36.8 C 115 H 22 113/73 01/23/25 07:51 36.9 C 113 H 22 115/73 01/23/25 07:36 115 H 14 01/23/25 07:30 102/76 01/23/25 07:21 115 H 27 H 01/23/25 07:21 36.9 C 116 H 26 H 95/69 L 01/23/25 07:15 118 H 23 01/23/25 07:15 95/69 L 01/23/25 07:06 36.8 C 118 H 24 98/69 L 01/23/25 07:04 98/69 L 01/23/25 07:00 106/71 01/23/25 06:57 117 H 22 01/23/25 06:48 37.6 C H 119 H 18 112/72 01/23/25 06:45 120 H 26 H 01/23/25 06:45 112/72 01/23/25 06:45 112/72 01/23/25 06:42 119 H 23 01/23/25 06:30 119/71 01/23/25 06:30 119/71 01/23/25 06:27 121 H 29 H 01/23/25 06:15 111/66 01/23/25 06:15 111/66 01/23/25 06:09 123 H 28 H 01/23/25 06:03 121 H 27 H 01/23/25 06:00 103/66 01/23/25 06:00 103/66 01/23/25 05:48 120 H 35 H 01/23/25 05:45 101/71 01/23/25 05:45 101/71 01/23/25 05:45 101/71 01/23/25 05:45 101/71 01/23/25 05:45 123 H 25 H 01/23/25 05:39 127 H 14 01/23/25 05:31 01/23/25 05:30 109/68 01/23/25 05:24 123 H 28 H 01/23/25 05:15 108/74 01/23/25 05:09 121 H 15 01/23/25 05:03 122 H 14 01/23/25 05:00 97/69 L 01/23/25 04:54 128 H 22 01/23/25 04:52 103/66 01/23/25 04:51 126 H 28 H 01/23/25 04:30 124 H 23 01/23/25 04:28 127 H 01/23/25 04:15 36.7 C 123 H 24 101/67 01/23/25 04:03 128 H 25 H 101/67 01/23/25 04:00 01/23/25 03:34 123 H 20 98/74 L 01/23/25 03:00 97/61 L 01/23/25 02:51 123 H 15 01/23/25 02:45 122 H 20 01/23/25 02:33 124 H 24 01/23/25 02:30 98/67 L 01/23/25 02:21 122 H 14 01/23/25 02:12 122 H 17 01/23/25 02:00 106/75 01/23/25 01:57 124 H 12 01/23/25 01:51 128 H 31 H 01/23/25 01:30 96/64 L 01/23/25 01:30 96/64 L 01/23/25 01:30 124 H 27 H 01/23/25 01:27 119 H 25 H 01/23/25 01:10 106/69 01/23/25 01:10 106/69 01/23/25 01:09 122 H 22 01/23/25 01:00 89/64 L 01/23/25 01:00 89/64 L 01/23/25 01:00 121 H 18 89/64 L 01/23/25 00:57 121 H 15 01/23/25 00:30 100/70 01/23/25 00:24 128 H 25 H 01/23/25 00:15 125 H 16 01/23/25 00:09 127 H 20 01/23/25 00:00 132 H 18 114/73 01/22/25 23:51 126 H 25 H 01/22/25 23:18 138 H 28 H 01/22/25 23:09 132 H 25 H 01/22/25 23:02 105/78 01/22/25 23:02 132 H 18 105/78 01/22/25 22:57 136 H 23 01/22/25 22:36 145 H 01/22/25 22:30 92/69 L 01/22/25 22:28 93/63 L 01/22/25 22:24 18 01/22/25 22:22 18 01/22/25 22:03 18 01/22/25 21:55 147 H 16 98/75 L 01/22/25 21:55 01/22/25 21:55 01/22/25 21:28 37.1 C 147 H 18 98/61 L Pulse Ox O2 Del Method O2 Flow Rate 01/23/25 09:29 94 01/23/25 09:21 96 Room Air 01/23/25 08:51 93 01/23/25 07:51 95 01/23/25 07:36 97 01/23/25 07:30 01/23/25 07:21 94 01/23/25 07:21 92 5 01/23/25 07:15 95 01/23/25 07:15 01/23/25 07:06 93 01/23/25 07:04 01/23/25 07:00 01/23/25 06:57 95 01/23/25 06:48 94 5 01/23/25 06:45 94 01/23/25 06:45 01/23/25 06:45 01/23/25 06:42 94 01/23/25 06:30 01/23/25 06:30 01/23/25 06:27 91 01/23/25 06:15 01/23/25 06:15 01/23/25 06:09 92 01/23/25 06:03 93 01/23/25 06:00 01/23/25 06:00 01/23/25 05:48 91 01/23/25 05:45 01/23/25 05:45 01/23/25 05:45 01/23/25 05:45 01/23/25 05:45 94 01/23/25 05:39 95 01/23/25 05:31 90 Nasal Cannula 5 01/23/25 05:30 01/23/25 05:24 89 L 4 01/23/25 05:15 01/23/25 05:09 93 01/23/25 05:03 95 01/23/25 05:00 01/23/25 04:54 92 01/23/25 04:52 01/23/25 04:51 93 01/23/25 04:30 91 01/23/25 04:28 01/23/25 04:15 94 Nasal Cannula 2 01/23/25 04:03 94 01/23/25 04:00 Nasal Cannula 3 01/23/25 03:34 93 Nasal Cannula 3 01/23/25 03:00 01/23/25 02:51 95 01/23/25 02:45 96 01/23/25 02:33 95 01/23/25 02:30 01/23/25 02:21 97 01/23/25 02:12 94 01/23/25 02:00 01/23/25 01:57 93 01/23/25 01:51 95 01/23/25 01:30 01/23/25 01:30 01/23/25 01:30 90 01/23/25 01:27 92 01/23/25 01:10 01/23/25 01:10 01/23/25 01:09 89 L 01/23/25 01:00 01/23/25 01:00 01/23/25 01:00 90 Nasal Cannula 2 01/23/25 00:57 91 01/23/25 00:30 01/23/25 00:24 93 01/23/25 00:15 94 01/23/25 00:09 95 01/23/25 00:00 92 Nasal Cannula 2 01/22/25 23:51 94 01/22/25 23:18 94 01/22/25 23:09 93 01/22/25 23:02 01/22/25 23:02 93 Nasal Cannula 2 01/22/25 22:57 94 01/22/25 22:36 01/22/25 22:30 01/22/25 22:28 01/22/25 22:24 94 Nasal Cannula 2 01/22/25 22:22 87 L Room Air 01/22/25 22:03 93 Room Air 01/22/25 21:55 93 Room Air 01/22/25 21:55 93 Room Air 01/22/25 21:55 Room Air 01/22/25 21:28 93 Room Air Discharge Sedation Level of Care: Fast Track Phase II Post Sedation Plan On clinical assessment, the patient appears to have tolerated the sedation without complications. Patient is recovering as anticipated. Patient will continue to be monitored by nursing and may be discharged when sedation discharge criteria are met per below protocol. Upon Completions of procedure up to 15 minutes continue every 5 minute vital signs and the P.A.R. score; then discharge to a Phase I or Fast Track to Phase II per the following guidelines: * Discharge Patient to appropriate Phase II area if PAR is 8 or greater or return to pre- procedure baseline. The post - procedure orders will be as directed. * If PAR score is less than 8 or not return to pre-procedure baseline then patient will follow Phase I monitoring till PAR is reached for Phase II. The Phase I may be done in procedure room or may call to secure a Phase I area. * If naloxone or flumazenil are used for reversal, hold in Phase I for continued monitoring from when last reversal dose was given for a minimum of 60 minutes or longer pending the nurse and/or physician discretion of patient condition before discharge to Phase II. Please call the Sedation Physician to re-evaluate and complete post-note for discharge to Phase II area. Do NOT discharge from procedure sedation or Phase 1 until post- sedation evaluation note is complete by procedure /sedation MD Sedation Discharge Instructions to be given to the patient at discharge to home. [facility] Procedure Codes (Charges) Indication for Procedure Indication for procedure: cardiac tamponade
--- NOTE | 2025-01-23 10:49 | Electrocardiogram Report ---
Test Reason : Blood Pressure : */* mmHG Vent. Rate : 152 BPM Atrial Rate : 152 BPM P-R Int : 118 ms QRS Dur : 70 ms QT Int : 252 ms P-R-T Axes : 53 70 57 degrees QTcB Int : 400 ms Sinus tachycardia Low voltage QRS Borderline ECG When compared with ECG of 06-Jan-2025 19:35, Vent. rate has increased by 50 bpm Confirmed by Terrance Leon ([id number]) on 01/23/2025 10:49:18 AM Referred By: REFERRED SELF Confirmed By: Terrance Leon
--- NOTE | 2025-01-23 11:10 | XRay Report ---
XR chest 1V portable CLINICAL HISTORY: evaluate post pericardiocentesis. COMPARISON STUDY: 01/22/2025 FINDINGS: Heart size and pulmonary vasculature are normal. There are stable small bilateral pleural e ffusions and adjacent mild lung base consolidation, right greater than left. No pneumothorax seen. IMPRESSION: No pneumothorax seen. ACT 112: Negative or not required by law. Electronically signed by: Diego Romano M.D. 01/23/2025 11:08 AM
--- NOTE | 2025-01-23 13:51 | Communication Note ---
Date of Service: January 23, 2025 Patient seen and examined. Please See H&P from earlier today for full details. He is feeling well this morning. Vitals are stable. S/p pericardiocentesis today, report pending. 1 PRBC ordered. Abx have been DC by ICU team. Discussed with patient today, he adamantly refused to be transferred. He is on eliquis for recent PE s/p thrombectomy and eliquis has been resumed. Appreciate ICU and cardiology management
[2025-01-23] MEDS: PRAVASTATIN SOD 20 MG TAB PO SCH (14:34)
[2025-01-23] MEDS: HYDROmorphone INJ 0.5 MG/0.5 ML SYR IV STA (15:05)
[2025-01-23] MEDS: HYDROmorphone INJ 0.5 MG/0.5 ML SYR ONE (15:05)
[2025-01-23] MEDS: KETOROLAC 30 MG/ML VIAL IV ONE (15:18)
--- NOTE | 2025-01-23 15:24 | Cardiac Catheterization ---
[facility] Data: [employer] Cardiac Status Clinical evaluation leading to the procedure CAD Presenation: No Sxs, No angina Diagnostic Physicians Name: Michael Vuong MD, PhD Closure Device Recommendations: Medical Therapy and/or Counseling Cardiac Cath Procedure Full Procedure Date January 23, 2025 Pre-Procedure Diagnosis Pre-Procedure Diagnosis: Pericardial Disease and Cardiothoracic Symptom (Cardiac tamponade) AUC Score AUC Score: N/A Post-Procedure Diagnosis Post-Procedure Diagnosis: Cardiothoracic Finding (Successful pericardiocentesis with removal of 490 mL fluid) Procedure(s) Performed Procedure(s) Performed: Ultrasound Guided Vascular Access and Pericardiocentesis [employer] Michael Vuong MD, PhD Estimated Blood Loss Estimated Blood Loss: 1 cc Medication(s) Medication(s): Fentanyl, Lidocaine 1% and Versed Summary of Findings Brief description: Patient was brought to the cardiac catheterization suite where he was shaved and prepped in a sterile fashion. Sedated using IV Versed and fentanyl. Soft tissue of the subxiphoid region was anesthetized using 10 mL of 1% Xylocaine. Using echo guidance and a 4 [place] micropuncture kit the micro Puncture needle was advanced beginning at the subxiphoid area and traveling towards the pericardium. A negative pressure aspiration was used and the needle was seen to enter the pericardial space. At that time straw-colored serous pericardial fluid was aspirated. Then, the micropuncture guidewire was advanced through the needle into the pericardial space and the micropuncture sheath was then advanced over this wire after removal of the needle. This was performed under fluoroscopy to ensure that the guidewire remained in place. Then, the guidewire was removed and confirmation of sheath position was made using agitated saline and the echo which demonstrated "bubbles" injected into the pericardial space. A long 0.035 J-tip wire was then advanced through the micropuncture sheath and the sheath was exchanged for a 6 [place] sheath. Then, over the guidewire and through the 6 [place] sheath the pigtail pericardial drain was advanced and again position was confirmed using fluoroscopy. We began therapeutic pericardiocentesis with the first 100 cc of fluid being sent for laboratory testing. The remaining 390 cc was aspirated and saved in the collection bag. We did adjust the pigtail catheter twice to complete aspiration. Echo confirmed significant resolution/reduction in the pericardial fluid. When we were no longer able to aspirate fluid the pericardial drain was attached to the accordion drain system. The sheath was sutured in place. The drain was also sutured in place and marked with a sterile marking pen. Then this was all ster ilely dressed with a Biopatch, sterile gauze dressings, and covered with a large Tegaderm patch. Patient's hemodynamics improved through this process and he was without discomfort or shortness of breath at the termination of the procedure. He was then transported to the ICU for further workup and management. This ended the case. Findings: 490 mL of serous blood-tinged pericardial fluid successfully removed. Pigtail catheter left in place for continued removal of residual pericardial fluid. Cytology and lab evaluation of fluid contents has been sent for evaluation and results are pending. Summary: 1. Successful pericardiocentesis for a moderate size pericardial effusion causing early signs of cardiac tamponade. 2. Improvement in hemodynamics post pericardiocentesis 3. Recommend pericardial drain will remain in place for 1 to 2 days at minimum. We will reevaluate for reaccumulation of pericardial fluid daily with limited echo. Postprocedural chest x-ray. 4. Additional workup and management recommendations per my initial consultation note. Hemodynamics Rest Ao:: Invasive not obtained. Final Ao: Invasive not obtained. LV: Invasive not obtained Recommendations Recommendations: Medical Therapy and/or Counseling Radiation Exposure (mGy) 56 mGy, 7 minutes fluoroscopy time. Contrast (mls) None Anesthesia 75 mcg fentanyl, 2 mg of Versed IV. Start 0954, and 1028 Procedural Complication(s) None Disposition ICU I attest to the content of the Intraoperative Record and any orders documented therein. Any exceptions are noted below. [facility] Card Cath Procedure Codes Therapeutic Services & Ancillary Procedure 1: Cardiovascular Tx and Anc Procedures: 12264 Pericardiocentesis w / Imaging Procedure 2: Cardiovascular Tx and Anc Procedures: 24216 Ultrasonic Guidance Pericardiocentesis Moderate Sedation Procedure 1: Sedation/Anesthesia: 99917 Mod Sedation by the same physician;Init15 Min Child Age 5 & Up (Initial 15 minutes, start time 0954) Procedure 2: Sedation/Anesthesia: 94131 Mod Sedation by the same physician; Ea [id number] Minutes (Additional 19 minutes, end time 1028) PG Care Time/CCT Total # of Minutes Spent Total Time Spent with Patient: Total time spent is greater than 50% in coordination of care (as documented) at patient's floor/unit and/or counseling patient:
[2025-01-23] MEDS: KETOROLAC 30 MG/ML VIAL ONE (15:38)
--- NOTE | 2025-01-23 17:21 | Critical Care Progress Note ---
Date of Service January 23, 2025 Assessment & Plan (1) Pericardial effusion with cardiac tamponade: Plan: * s/p pericardiocentesis * Highly likely metastatic * Continue monitoring for catheter-blockage and recurrence of tamponade (2) Acute hypoxic respiratory failure: Plan: * Taper Oxygen as tolerated (3) Pulmonary embolism: Plan: * Resume Eliquis this evening (4) Chronic anemia: (5) Abdominal carcinomatosis: Plan I have personally spent 45 minutes of critical care time in the direct management of this patient. This is a life/limb threatening event. This includes time spent evaluating the patient, direct bedside care, chart review, placing orders, interpreting diagnostic studies, communicating with consultants, attending providers, patient, and family members, as well as required patient management activities. This time is exclusive of all separately-billable procedures and teaching time, and separate from and in addition to any other critical care service time. Admission and Anticipated Discharge Date Admission Date: January 23, 2025 Subjective The patient is a very pleasant 49-year-old male who presented to the ED for evaluation of worsening midsternal chest pain and shortness of breath. Over the preceding day, he had developed increasing chest discomfort, which was positional and associated with dyspnea, particularly when lying flat. He also reported a worsening nonproductive cough and noted swelling of his lower extremities and right upper extremity, the latter with a history of prior DVT. On arrival, the patient was tachycardic, borderline hypotensive, mildly tachypneic, and intermittently hypoxic, with improvement after initiation of low-flow nasal cannula oxygen and crystalloid resuscitation. He had recently bee n admitted to [facility] for 45 days, where he underwent thrombectomy for SVC thrombus and pericardial effusion drainage, and was discharged on apixaban. Bedside ultrasound demonstrated a moderate to large pericardial effusion with slightly distended IVC, and a stat TTE confirmed right ventricular and left atrial collapse, consistent with early cardiac tamponade physiology. The patient was admitted to the ICU for continuous monitoring, preload support, and further management. He underwent successful pericardiocentesis with removal of 490 mL of serous, blood-tinged pericardial fluid, resulting in significant improvement in symptoms and hemodynamics. A pericardial drain was left in place for ongoing management. 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 The patient reported significant improvement initially. However, later he reported significant chest discomfort that did not respond to Oxycodone. The pain was reproducible over the sternal area, and it eventually responded to Toradol. Review of Systems Review of Systems: All systems reviewed & are unremarkable except as noted in HPI & below Physical Exam Physical Exam: General: In no acute distress, using Oxygenvia nasal cannula. Eyes: Anicteric.Noconjunctival hyperemia or exudates.No periorbital edema. Neck: No palpable masses or adenopathy. Respiratory: Diffusely decreased breath sounds, no wheezing or crackles. No use of accessory muscles and no prolonged exhalation. Cardiac: Distant sounds, regular rhythm, no murmurs, no gallops, no rubs; could not appreciate JV pulse elevation. Pericardiocentesis catheter in place. Tenderness over sternum. GI: Soft, nontender. Extremities No clubbing,no cyanosis,no edema. Neuro: No gross motor deficits. Seems appropriate. No facial-droop. Speech is clear. Results & Data Results & Data Vital Signs (Past 12 Hours) Vital Signs Temp Pulse Pulse Resp BP BP Pulse Ox 01/23/25 09:29 111 H 14 102/71 94 01/23/25 09:21 114 H 14 102/71 96 01/23/25 08:51 36.8 C 115 H 22 113/73 93 01/23/25 08:00 110 H 01/23/25 07:51 36.9 C 113 H 22 115/73 95 01/23/25 07:36 115 H 14 97 01/23/25 07:30 102/76 01/23/25 07:21 115 H 27 H 94 01/23/25 07:21 36.9 C 116 H 26 H 95/69 L 92 01/23/25 07:15 118 H 23 95 01/23/25 07:15 95/69 L 01/23/25 07:06 36.8 C 118 H 24 98/69 L 93 01/23/25 07:04 98/69 L 01/23/25 07:00 106/71 01/23/25 06:57 117 H 22 95 01/23/25 06:48 37.6 C H 119 H 18 112/72 94 01/23/25 06:45 120 H 26 H 94 01/23/25 06:45 112/72 01/23/25 06:45 112/72 01/23/25 06:42 119 H 23 94 01/23/25 06:30 119/71 01/23/25 06:30 119/71 01/23/25 06:27 121 H 29 H 91 01/23/25 06:15 111/66 01/23/25 06:15 111/66 01/23/25 06:09 123 H 28 H 92 01/23/25 06:03 121 H 27 H 93 01/23/25 06:00 103/66 01/23/25 06:00 10301/23/25 05:48 120 H 35 H 91 01/23/25 05:45 10171 01/23/25 05:45 10171 01/23/25 05:45 10101/23/25 05:45 10101/23/25 05:45 123 H 25 H 94 01/23/25 05:39 127 H 14 95 01/23/25 05:31 90 01/23/25 05:30 109/68 01/23/25 05:24 123 H 28 H 89 L O2 Del Method O2 Flow Rate 01/23/25 09:29 01/23/25 09:21 Room Air 01/23/25 08:51 01/23/25 08:00 01/23/25 07:51 01/23/25 07:36 01/23/25 07:30 01/23/25 07:21 01/23/25 07:21 5 01/23/25 07:15 01/23/25 07:15 01/23/25 07:06 01/23/25 07:04 01/23/25 07:00 01/23/25 06:57 01/23/25 06:48 5 01/23/25 06:45 01/23/25 06:45 01/23/25 06:45 01/23/25 06:42 01/23/25 06:30 01/23/25 06:30 01/23/25 06:27 01/23/25 06:15 01/23/25 06:15 01/23/25 06:09 01/23/25 06:03 01/23/25 06:00 01/23/25 06:00 01/23/25 05:48 01/23/25 05:45 01/23/25 05:45 01/23/25 05:45 01/23/25 05:45 01/23/25 05:45 01/23/25 05:39 01/23/25 05:31 Nasal Cannula 5 01/23/25 05:30 01/23/25 05:24 4 Laboratory Results 01/23/25 03:07 Aerobic Blood Culture - Pending Blood Anaerobic Blood Culture - Pending 01/23/25 03:00 Aerobic Blood Culture - Pending Blood Anaerobic Blood Culture - Pending 01/23/25 01/23/25 01/23/25 15:59 11:18 08:32 WBC RBC Hgb POC Hgb Hct POC Hct MCV MCH MCHC RDW Std Deviation RDW Coeff of Cheng Plt Count MPV Immature Gran % (Auto) Neut % (Auto) Lymph % (Auto) Boundary % (Auto) Eos % (Auto) Baso % (Auto) Neut # (Auto) Lymph # (Auto) Boundary # (Auto) Eos # (Auto) Baso # (Auto) Immature Gran # (Auto) Absolute Nucleated RBC Nucleated RBC % (auto) Polychromasia Anisocytosis Microcytosis PT INR APTT PTT Ratio POC Sodium Sodium POC Potassium Potassium POC Chloride Chloride Carbon Dioxide POC Total CO2 Anion Gap POC Anion Gap POC BUN BUN Creatinine POC Creatinine Est Cr Clr Drug Dosing eGFR BUN/Creatinine Ratio Glucose POC Glucose 243 H 119 H 145 H POC Glucose (other) Osmolality Lactate Calcium POC Ioniz Calcium Vlad Magnesium Total Bilirubin AST ALT Alkaline Phosphatase Troponin I High Sens B-Natriuretic Peptide Total Protein Albumin Globulin Albumin/Globulin Ratio Lipase Procalcitonin Urine Color Urine Appearance Urine pH Ur Specific [place] Urine Protein Urine Glucose (UA) Urine Ketones Urine Blood Urine Nitrite Urine Bilirubin Urine Urobilinogen Ur Leukocyte Esterase Urine WBC (Auto) Urine RBC (Auto) U Hyaline Cast (Auto) U Epithel Cells (Auto) Urine Bacteria (Auto) Urine Osmolality Ur Random Sodium Urine Comment Nasal Screen MRSA (PCR) Adenovirus (PCR) B. pertussis DNA (PCR) B.parapertussis DNA PCR C. pneumoniae DNA (PCR) Coronavirus OC43 (PCR) Coronavirus HKU1 (PCR) Coronavirus 229E (PCR) SARS-CoV-2 (PCR) Coronavirus NL63 (PCR) Human Metapneumovir PCR Influenza Type A (PCR) Influenza Type B (PCR) M. pneumoniae (PCR) Parainfluenza 1 (PCR) Parainfluenza 2 (PCR) Parainfluenza 3 (PCR) Parainfluenza 4 (PCR) RSV (PCR) Entero/Rhino (PCR) Blood Type Antibody Screen Crossmatch 01/23/25 01/23/25 01/23/25 05:20 03:53 03:50 WBC RBC Hgb POC Hgb Hct POC Hct MCV MCH MCHC RDW Std Deviation RDW Coeff of Cheng Plt Count MPV Immature Gran % (Auto) Neut % (Auto) Lymph % (Auto) Boundary % (Auto) Eos % (Auto) Baso % (Auto) Neut # (Auto) Lymph # (Auto) Boundary # (Auto) Eos # (Auto) Baso # (Auto) Immature Gran # (Auto) Absolute Nucleated RBC Nucleated RBC % (auto) Polychromasia Anisocytosis Microcytosis PT INR APTT PTT Ratio POC Sodium Sodium POC Potassium Potassium POC Chloride Chloride Carbon Dioxide POC Total CO2 Anion Gap POC Anion Gap POC BUN BUN Creatinine POC Creatinine Est Cr Clr Drug Dosing eGFR BUN/Creatinine Ratio Glucose POC Glucose 239 H POC Glucose (other) Osmolality Lactate Calcium POC Ioniz Calcium Vlad Magnesium Total Bilirubin AST ALT Alkaline Phosphatase Troponin I High Sens B-Natriuretic Peptide Total Protein Albumin Globulin Albumin/Globulin Ratio Lipase Procalcitonin Urine Color Urine Appearance Urine pH Ur Specific [place] Urine Protein Urine Glucose (UA) Urine Ketones Urine Blood Urine Nitrite Urine Bilirubin Urine Urobilinogen Ur Leukocyte Esterase Urine WBC (Auto) Urine RBC (Auto) U Hyaline Cast (Auto) U Epithel Cells (Auto) Urine Bacteria (Auto) Urine Osmolality Ur Random Sodium Urine Comment Nasal Screen MRSA (PCR) Negative Adenovirus (PCR) B. pertussis DNA (PCR) B.parapertussis DNA PCR C. pneumoniae DNA (PCR) Coronavirus OC43 (PCR) Coronavirus HKU1 (PCR) Coronavirus 229E (PCR) SARS-CoV-2 (PCR) Coronavirus NL63 (PCR) Human Metapneumovir PCR Influenza Type A (PCR) Influenza Type B (PCR) M. pneumoniae (PCR) Parainfluenza 1 (PCR) Parainfluenza 2 (PCR) Parainfluenza 3 (PCR) Parainfluenza 4 (PCR) RSV (PCR) Entero/Rhino (PCR) Blood Type O Positive Antibody Screen NEGATIVE Crossmatch See Detail 01/23/25 01/23/25 01/23/25 03:00 03:00 02:57 WBC 13.24 H RBC 3.43 L Hgb 6.6 L* POC Hgb Hct 23.5 L POC Hct MCV 68.5 L MCH 19.2 L MCHC 28.1 L RDW Std Deviation 54.2 H RDW Coeff of Cheng 22.2 H Plt Count 535 H MPV 8.5 L Immature Gran % (Auto) 1.1 Neut % (Auto) 81.5 Lymph % (Auto) 7.9 Boundary % (Auto) 9.1 Eos % (Auto) 0.2 Baso % (Auto) 0.2 Neut # (Auto) 10.78 H Lymph # (Auto) 1.05 L Boundary # (Auto) 1.20 H Eos # (Auto) 0.03 Baso # (Auto) 0.03 Immature Gran # (Auto) 0.15 Absolute Nucleated RBC Nucleated RBC % (auto) Polychromasia 2+ Anisocytosis Present Microcytosis Present PT INR APTT 33 H PTT Ratio 1.2 POC Sodium Sodium 129 L 129 L POC Potassium Potassium 3.5 POC Chloride Chloride 92 L Carbon Dioxide 30 POC Total CO2 Anion Gap 7 POC Anion Gap POC BUN BUN 10 Creatinine 0.50 L POC Creatinine Est Cr Clr Drug Dosing 201.5 eGFR 126.60 BUN/Creatinine Ratio 20.0 Glucose 249 H POC Glucose POC Glucose (other) Osmolality Lactate Calcium 8.3 L POC Ioniz Calcium Vlad Magnesium 2.1 Total Bilirubin AST ALT Alkaline Phosphatase Troponin I High Sens B-Natriuretic Peptide Total Protein Albumin Globulin Albumin/Globulin Ratio Lipase Procalcitonin Urine Color Urine Appearance Urine pH Ur Specific [place] Urine Protein Urine Glucose (UA) Urine Ketones Urine Blood Urine Nitrite Urine Bilirubin Urine Urobilinogen Ur Leukocyte Esterase Urine WBC (Auto) Urine RBC (Auto) U Hyaline Cast (Auto) U Epithel Cells (Auto) Urine Bacteria (Auto) Urine Osmolality Ur Random Sodium Urine Comment Nasal Screen MRSA (PCR) Adenovirus (PCR) Not Detected B. pertussis DNA (PCR) Not Detected B.parapertussis DNA PCR Not Detected C. pneumoniae DNA (PCR) Not Detected Coronavirus OC43 (PCR) Not Detected Coronavirus HKU1 (PCR) Not Detected Coronavirus 229E (PCR) Not Detected SARS-CoV-2 (PCR) Not Detected Coronavirus NL63 (PCR) Not Detected Human Metapneumovir PCR Not Detected Influenza Type A (PCR) Not Detected Influenza Type B (PCR) Not Detected M. pneumoniae (PCR) Not Detected Parainfluenza 1 (PCR) Not Detected Parainfluenza 2 (PCR) Not Detected Parainfluenza 3 (PCR) Not Detected Parainfluenza 4 (PCR) Not Detected RSV (PCR) Not Detected Entero/Rhino (PCR) Not Detected Blood Type Antibody Screen Crossmatch 01/23/25 01/23/25 01/22/25 01:57 01:39 22:11 WBC RBC Hgb POC Hgb 8.8 L Hct POC Hct 26 L MCV MCH MCHC RDW Std Deviation RDW Coeff of Cheng Plt Count MPV Immature Gran % (Auto) Neut % (Auto) Lymph % (Auto) Boundary % (Auto) Eos % (Auto) Baso % (Auto) Neut # (Auto) Lymph # (Auto) Boundary # (Auto) Eos # (Auto) Baso # (Auto) Immature Gran # (Auto) Absolute Nucleated RBC Nucleated RBC % (auto) Polychromasia Anisocytosis Microcytosis PT INR APTT PTT Ratio POC Sodium 128 L Sodium POC Potassium 3.9 Potassium POC Chloride 89 L Chloride Carbon Dioxide POC Total CO2 28 Anion Gap POC Anion Gap 16.0 POC BUN 10 BUN Creatinine POC Creatinine 0.5 L Est Cr Clr Drug Dosing eGFR BUN/Creatinine Ratio Glucose POC Glucose POC Glucose (other) 322 H Osmolality Lactate 1.7 Calcium POC Ioniz Calcium Vlad 1.04 L Magnesium Total Bilirubin AST ALT Alkaline Phosphatase Troponin I High Sens B-Natriuretic Peptide Total Protein Albumin Globulin Albumin/Globulin Ratio Lipase Procalcitonin Urine Color Yellow Urine Appearance Clear Urine pH 5.5 Ur Specific [place] 1.017 Urine Protein 1+ H Urine Glucose (UA) Trace H Urine Ketones Negative Urine Blood Negative Urine Nitrite Negative Urine Bilirubin Negative Urine Urobilinogen Negative Ur Leukocyte Esterase Negative Urine WBC (Auto) 0-5 Urine RBC (Auto) 0-2 U Hyaline Cast (Auto) 0-2 U Epithel Cells (Auto) 0-2 Urine Bacteria (Auto) None Seen Urine Osmolality 512 Ur Random Sodium 63 Urine Comment Nasal Screen MRSA (PCR) Adenovirus (PCR) B. pertussis DNA (PCR) B.parapertussis DNA PCR C. pneumoniae DNA (PCR) Coronavirus OC43 (PCR) Coronavirus HKU1 (PCR) Coronavirus 229E (PCR) SARS-CoV-2 (PCR) Coronavirus NL63 (PCR) Human Metapneumovir PCR Influenza Type A (PCR) Influenza Type B (PCR) M. pneumoniae (PCR) Parainfluenza 1 (PCR) Parainfluenza 2 (PCR) Parainfluenza 3 (PCR) Parainfluenza 4 (PCR) RSV (PCR) Entero/Rhino (PCR) Blood Type Antibody Screen Crossmatch 01/22/25 21:50 WBC 14.74 H RBC 3.81 L Hgb 7.4 L POC Hgb Hct 26.2 L POC Hct MCV 68.8 L MCH 19.4 L MCHC 28.2 L RDW Std Deviation 54.2 H RDW Coeff of Cheng 22.2 H Plt Count 546 H MPV 8.4 L Immature Gran % (Auto) 0.8 Neut % (Auto) 84.8 Lymph % (Auto) 6.0 Boundary % (Auto) 8.1 Eos % (Auto) 0.1 Baso % (Auto) 0.2 Neut # (Auto) 12.49 H Lymph # (Auto) 0.88 L Boundary # (Auto) 1.20 H Eos # (Auto) 0.02 Baso # (Auto) 0.03 Immature Gran # (Auto) 0.12 Absolute Nucleated RBC 0.03 Nucleated RBC % (auto) 0.2 Polychromasia 1+ Anisocytosis Present Microcytosis Present PT 13.1 H INR 1.3 H APTT 34 H PTT Ratio 1.3 POC Sodium Sodium 126 L POC Potassium Potassium 4.0 POC Chloride Chloride 89 L Carbon Dioxide 26 POC Total CO2 Anion Gap 11 POC Anion Gap POC BUN BUN 11 Creatinine 0.60 POC Creatinine Est Cr Clr Drug Dosing 167.9 eGFR 119.82 BUN/Creatinine Ratio 18.3 Glucose 310 H* POC Glucose POC Glucose (other) Osmolality 283 Lactate Calcium 8.3 L POC Ioniz Calcium Vlad Magnesium 1.5 L Total Bilirubin 0.2 AST 38 ALT 35 Alkaline Phosphatase 210 H Troponin I High Sens 3.6 B-Natriuretic Peptide 30 Total Protein 7.8 Albumin 2.1 L Globulin 5.7 H Albumin/Globulin Ratio 0.4 L Lipase 5 L Procalcitonin 0.70 H Urine Color Urine Appearance Urine pH Ur Specific [place] Urine Protein Urine Glucose (UA) Urine Ketones Urine Blood Urine Nitrite Urine Bilirubin Urine Urobilinogen Ur Leukocyte Esterase Urine WBC (Auto) Urine RBC (Auto) U Hyaline Cast (Auto) U Epithel Cells (Auto) Urine Bacteria (Auto) Urine Osmolality Ur Random Sodium Urine Comment Nasal Screen MRSA (PCR) Adenovirus (PCR) B. pertussis DNA (PCR) B.parapertussis DNA PCR C. pneumoniae DNA (PCR) Coronavirus OC43 (PCR) Coronavirus HKU1 (PCR) Coronavirus 229E (PCR) SARS-CoV-2 (PCR) Coronavirus NL63 (PCR) Human Metapneumovir PCR Influenza Type A (PCR) Influenza Type B (PCR) M. pneumoniae (PCR) Parainfluenza 1 (PCR) Parainfluenza 2 (PCR) Parainfluenza 3 (PCR) Parainfluenza 4 (PCR) RSV (PCR) Entero/Rhino (PCR) Blood Type Antibody Screen Crossmatch Diagnostic Findings Chest X-Ray 01/22/25 21:34 Exam(s): XR CXR 2 VIEWS EXAM: XR Chest, 2 Views CLINICAL HISTORY: Reason for exam: Chest pain, nonspecific. TECHNIQUE: Frontal and lateral views of the chest. COMPARISON: Chest radiograph on 12/15/2024 FINDINGS: Hardware: None. Lungs/pleura: Bilateral lower lung opacities may represent small pleural effusions with atelectasis versus pneumonia. Heart/mediastinum: Normal. No cardiomegaly. Soft tissues: Unremarkable. Bones: No acute fracture. Upper abdomen: Normal. IMPRESSION: Bilateral lower lung opacities may represent small pleural effusions with atelectasis versus pneumonia. Electronically signed by: Shirley Kelley M.D. 01/23/25 00:47 AM Chest X-Ray 01/23/25 10:25 XR chest 1V portable CLINICAL HISTORY: evaluate post pericardiocentesis. COMPARISON STUDY: 01/22/2025 FINDINGS: Heart size and pulmonary vasculature are normal. There are stable small bilateral pleural effusions and adjacent mild lung base consolidation, right greater than left. No pneumothorax seen. IMPRESSION: No pneumothorax seen. ACT 112: Negative or not required by law. Electronically signed by: Diego Romano M.D. 01/23/2025 11:08 AM Medications Administered Home Medications Medication Instructions Recorded Confirmed Last Taken pravastatin 20 mg tablet 20 mg PO QAM 05/17/22 01/22/25 01/22/25 metformin 500 mg tablet,extended 500 mg PO BIDM 05/11/24 01/22/25 01/22/25 release 24 hr acetaminophen 500 mg tablet 1,000 mg PO Q6H PRN PAIN/FEVER 08/20/24 01/22/25 08/20/24 11:00 (Tylenol Extra Strength) omeprazole 20 mg capsule,delayed 20 mg PO QAM 11/19/24 01/22/25 01/22/25 release apixaban 5 mg tablet (Eliquis) 5 mg PO BID 12/27/24 01/22/25 01/22/25 insulin glargine U-300 conc 300 50 unit subcut HS 12/27/24 01/22/25 01/21/25 unit/mL (3 mL) subcutaneous pen (Toujeo Max U-300 SoloStar) codeine 10 mg-guaifenesin 100 mg/5 5 ml PO Q6H PRN COUGH/PAIN 01/22/25 01/22/25 Unknown mL oral liquid oxycodone-acetaminophen 5 mg-325 1 tab PO Q6H PRN Pain, Severe 01/22/25 01/22/25 Unknown mg tablet Active Medications Generic Name Dose Route Start Last Admin Trade Name Freq PRN Reason Stop Dose Admin Acetaminophen 650 mg 01/23/25 02:41 01/23/25 08:36 Acetaminophen 325 Mg Tab PO 02/22/25 02:40 650 mg QID PRN Administration pain/fever Guaifenesin/Codeine Phosphate 5 ml 01/23/25 02:40 01/23/25 14:35 Guaifenesin/Codeine 100mg/10mg 5ml Udc PO 02/22/25 02:39 5 ml Q6H PRN Administration COUGH/PAIN Lactated Ringer's 1,000 mls @ 125 mls/hr 01/23/25 02:00 01/23/25 14:00 Lr IV 01/26/25 01:59 125 mls/hr .Q8H KELLE Administration Insulin Aspart 0 units 01/23/25 04:06 01/23/25 16:48 Insulin Aspart Per Unit Charge SC 02/22/25 04:05 8 units ACHS KELLE Administration Insulin Glargine 30 units 01/23/25 03:00 01/23/25 04:15 Lantus Per Unit Charge SQ 02/22/25 02:59 30 units HS KELLE Administration Oxycodone/Acetaminophen 1 tab 01/23/25 14:12 01/23/25 14:34 Oxycodone/Acetaminophen 5mg/325mg Tab PO 02/06/25 14:11 1 tab Q4H PRN Administration Pain Pantoprazole Sodium 40 mg 01/23/25 09:00 01/23/25 14:34 Pantoprazole 40 Mg Tab PO 02/22/25 08:59 40 mg QAM KELLE Administration Pravastatin Sodium 20 mg 01/23/25 09:00 01/23/25 14:34 Pravastatin Sod 20 Mg Tab PO 02/22/25 08:59 20 mg QAM KELLE Administration Coding Level of Care Code 25545 CRITICAL CARE 1ST 30-74M Diagnoses Pericardial effusion with cardiac tamponade I31.39; I31.4 Acute hypoxic respiratory failure J96.01 Pulmonary embolism I26.99 Chronic anemia D64.9 Abdominal carcinomatosis C76.2 Time Spent (min) 45
[2025-01-23] MEDS: POTASSIUM CHLORIDE CRTAB 20 MEQ TABCR PO STA (17:36)
[2025-01-23] MEDS: APIXABAN 5 MG TABLET PO SCH (20:18)
--- NOTE | 2025-01-23 20:55 | Electrocardiogram Report ---
Test Reason : Blood Pressure : */* mmHG Vent. Rate : 112 BPM Atrial Rate : 112 BPM P-R Int : 132 ms QRS Dur : 84 ms QT Int : 338 ms P-R-T Axes : 40 40 60 degrees QTcB Int : 461 ms Sinus tachycardia Otherwise normal ECG When compared with ECG of 22-Jan-2025 21:35, No significant change was found Confirmed by Terrance Leon ([id number]) on 01/23/2025 8:55:01 PM Referred By: REFERRED SELF Confirmed By: Terrance Leon
[2025-01-23] MEDS ORDERED: DOXYCYCLINE HYCLATE 100 MG CAP PO SCH (21:00)
[2025-01-23] MEDS ORDERED: MELATONIN 3 MG TAB PO PRN (21:47)
[2025-01-24] MEDS ORDERED: Nursing to Pharmacy Communication SCH (00:15)
[2025-01-24] MEDS: BENZONATATE 100 MG CAPSULE PO PRN (02:44)
[2025-01-24 05:22] LABS: Hematocrit (blood only) 28.5 % (42.0-52.0); Hemoglobin 7.9 g/dl (14.0-18.0); Immature Granulocytes # (auto) 0.10 K/uL (0.01-0.20); Immature Granulocytes % (auto) 0.8 %; Mean Corpuscular Hemoglobin 19.0 pg (25.0-34.0); Mean Corpuscular Volume 68.7 fL (80.0-100.0); RDW Standard Deviation 55.4 fL (36.4-46.3); Red Blood Count 4.15 M/uL (4.70-6.10); White Blood Count 12.70 K/ul (4.8-10.8)
[2025-01-24] MEDS: LACTATED RINGER'S 500 ML IV ONE (05:23)
[2025-01-24 05:27] VITALS: TEMP 99.1
[2025-01-24] MEDS ORDERED: STAT IV Infusion **Titration per Protocol STA (05:30)
[2025-01-24 05:38] LABS: Anion Gap 8.0 (3-11); Blood Urea Nitrogen 10.0 mg/dl (6-23); Calcium 8.4 mg/dl (8.6-10.3); Carbon Dioxide 31.0 mmol/L (21-32); Chloride 95.0 mmol/L (98-107); Creatinine Clr Calc Pharmacy 188.7 ml/min; Glucose 144.0 mg/dl (70-99(Fasting)); Magnesium 2.1 mg/dl (1.7-2.4); Potassium 4.1 mmol/L (3.5-5.1); Sodium 134.0 mmol/L (136-145)
[2025-01-24 05:50] LABS: Anisocytosis Present; Platelet Count 590 K/uL (130-400); Polychromasia 1+
[2025-01-24] MEDS: NOREPINEPHRINE/D5W 4 MG/250 ML PLCT IV SCH (06:41)
[2025-01-24 08:09] VITALS: O2SAT 92
--- NOTE | 2025-01-24 10:49 | XRay Report ---
XR chest 1V portable CLINICAL HISTORY: Hypoxemia COMPARISON STUDY: 01/23/2025 FINDINGS: There is stable cardiomegaly with pulmonary vascular congestion. Stable bilateral pleural e ffusions and adjacent lung base consolidation. No pneumothorax seen. Stable small tubular density ove rlying the left lower chest or left upper quadrant of the abdomen. IMPRESSION: Stable exam. ACT 112: Negative or not required by law. Electronically signed by: Diego Romano M.D. 01/24/2025 10:46 AM
[2025-01-24] MEDS: FUROSEMIDE INJ 20 MG/2 ML VIAL IV STA (11:30)
--- NOTE | 2025-01-24 13:35 | Discharge Summary ---
Discharge Summary Date of Service January 24, 2025 Principal Dx & Hospital Course #1 = Principal Diagnosis (1) Pericardial effusion with cardiac tamponade: (2) Acute hypoxic respiratory failure: (3) Acute deep vein thrombosis of upper extremity: (4) Pulmonary embolism: (5) DM type 2 (diabetes mellitus, type 2): (6) Abdominal carcinomatosis: (7) Chronic anemia: (8) Hypoalbuminemia: (9) Thrombocytosis: (10) Bilateral pleural effusion: (11) Acute heart failure with preserved ejection fraction: Plan Patient 49-year-old gentleman with known abdominal carcinomatosis of unknown primary just recently admitted and transferred to [facility] for acute hypoxic respiratory failure associated with SVC thrombosis and pulmonary embolism and pericardial effusion. Patient was discharged from [facility] after undergoing pericardiocentesis and thrombectomy. He presented again to [facility] emergency room with acute shortness of breath where he could not lay flat and blood pressure declining. He had signs and symptoms of cardiac tamponade and recurrent pericardial effusion. Patient was unstable to be transferred at the time of presentation and went to cardiac catheterization here at [facility] for pericardiocentesis. Patient underwent successful drainage of 490 cc and a pericardial drain was placed. Post procedure patient remained tachycardic and requiring oxygen. Required some Levophed for pressor support. But overall his symptoms were improving. The patient has yet to get a definitive diagnosis of his carcinomatosis and concerned that this pericardial effusion is malignant. Also concerned that the patient was unable to stay out of the hospital for any period of time to proceed with outpatient evaluation. Would do the patient's current medical condition a nd concern for more immediate interventions and evaluation for his condition with specialty services not available here was recommended he be transferred to [facility]. Patient ultimately recognized that he would need further intervention. Most likely needed pericardial window for more definitive care of his recurrent pericardial effusion which cannot be performed here. Transfer center was contacted. They coordinated a multispecialty conversation with specialist at [facility]. Ultimately they agreed that the patient would need hospital level care and intervention that they could provide in their MICU. Dr. Negron excepted the patient in transfer. Patient and were notified of the transfer station and need for subspecialty care. They were both agreeable to the transfer. Notes For Next Care Provider Medication Changes From Visit Patient requiring Levophed at the time of transport Admission HPI Per Admitting Provider History obtained from patient, family, and records. Medical history significant for PE/upper extremity DVT on Eliquis, SVC thrombus status post thrombectomy/pericardial effusion/tamponade status post recent drainage ([facility] 12/2024), metastatic cancer/peritoneal carcinomatosis on outpa tient imaging, DM 2 insulin requiring, chronic hyponatremia, chronic anemia (baseline hemoglobin of 7-8), past tobacco abuse. Recent [facility] confinement January 06 to 2024 following [facility] ER transfer for hypotension, SVC thrombosis, multiple PEs, and pericardial effusion in the setting of hypotension and hypoxemia. SVC thrombectomy done. Pericardial drain placed. Patient told to resume home Eliquis upon discharge. Outpatient peritoneal nodule biopsy to ascertain cause of metastatic cancer be done outpatient possibly first week of January as per discharge note. Patient with persistent dry cough symptoms following discharge from the hospital. Denies aspiration. Patient also noted blurred vision on the inner half of both eyes without headache or eye pain symptoms. Outpatient brain MRI requested by PCP normal as per patient/family account. Patient noted sudden onset pleuritic chest pain with SOB yesterday. Compliant with blood thinner. No abdominal pain or bleeding symptoms. SBP 90s upon arrival at the ER. Stat 2D echo done at the ER read as moderate circumferential pericardial effusion with evidence of RV compression during diastole, tachycardia, and dilated IVC with reduced inspiratory collapse consistent with tamponade physiology. 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 Lungs: Decreased breath sounds, few crackles at bases CV: S1-S2, regular, tachycardic, pericardial drain anterior chest, slightly purulent bloody drainage in bag Abdomen: Soft, nontender, nondistended Extremities: No significant edema Neuro: No focal deficits, generally weak Psych: Cooperative, normal mood Updated Medication List Medication Instructions Recorded Confirmed Type pravastatin 20 mg tablet 20 mg PO QAM 05/17/22 01/22/25 History metformin 500 mg tablet,extended 500 mg PO BIDM 05/11/24 01/22/25 History release 24 hr acetaminophen 500 mg tablet 1,000 mg PO Q6H PRN PAIN/FEVER 08/20/24 01/22/25 History (Tylenol Extra Strength) omeprazole 20 mg capsule,delayed 20 mg PO QAM 11/19/24 01/22/25 History release apixaban 5 mg tablet (Eliquis) 5 mg PO BID 12/27/24 01/22/25 History insulin glargine U-300 conc 300 50 unit subcut HS 12/27/24 01/22/25 History unit/mL (3 mL) subcutaneous pen (Toujeo Max U-300 SoloStar) codeine 10 mg-guaifenesin 100 mg/5 5 ml PO Q6H PRN COUGH/PAIN 01/22/25 01/22/25 History mL oral liquid oxycodone-acetaminophen 5 mg-325 1 tab PO Q6H PRN Pain, Severe 01/22/25 01/22/25 History mg tablet Hospital Stay Data Consultations 01/23/25 01:42 Consult Cardiology Stat Consult Staff Development Coordinator Rn Stat ED Decision to Admit Stat 01/23/25 04:06 Consult Staff Development Coordinator Rn Routine 01/24/25 13:05 Burn CD for patient Stat Procedures Performed Operation Date: 01/23/25 08:00 Actual Procedures p Pericardiocentesis - Michael Vuong MD, PhD p PRCRD DRG 6YR+ W/O CGENCAR - Michael Vuong MD, PhD Diagnostic Imagining Performed 01/23/25 06:49 CL Cath Imgs for PACS use only Urgent Reviewed imaging, laboratory and diagnostic studies. Pertinent findings as below. WBCs 12.7 Hemoglobin 7.9 Hematocrit 28.5 Platelets of 590 Sodium 134 Potassium 4.1 Chloride of 95 is carbon dioxide 31 Creatinine 0.54 Glucose 236 Magnesium 2.1 Chest x-ray from today was reported as stable, evidence of pulmonary vascular congestion, bilateral pleural effusions, no pneumothorax EKG showing sinus tachycardia, no acute ST-T wave changes Echocardiogram done on admission prior to pericardiocentesis showed ejection fraction of 60 to 65% with a moderate pericardial effusion showing evidence of some tamponade physiology. Pending Results Patient Have Any Pending Studies at Discharge: Yes Discharge Instructions Given to Patient (Per Discharging Provider) Recommend you go to [facility] for subspecialty care and definitive that intervention on your recurrent pericardial effusion Total Time Total Time Spent Total Time Spent (In Minutes): 55
[2025-01-24 13:39] VITALS: BP 103/72; PULSE 136; RESP 20
[2025-01-29 08:17] LABS: Pericardial Fld,Total Protein 4.5 g/dL; Pericardial Fluid, Albumin 1.3 g/dL; Pericardial Fluid, Glucose 130 mg/dL
--- NOTE | 2025-01-30 07:57 | Coding Query ---
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 Please indicate if it is still a possible diagnosis or ruled out. Physician's Response(s): SEPSIS ( ) Diagnosed and POA ( ) Diagnosed and not POA ( x ) Ruled out ( ) Other (please specify) HCAP ( ) Diagnosed and POA ( ) Diagnosed and not POA ( x) Ruled out ( ) Other (please specify) MTDD
--- NOTE | 2025-02-02 09:58 | Coding Query ---
CODING QUERY To promote full compliance with coding requirements relating to patient care, provider participation is requested in all cases of cylinder honer uncertainty. Please assist us with the question(s) below: Coding Question(s): Patient presented with SOB. Finding list Pleural Effusion and finally on DS list Acute CHF. Please clarify if the Pleural Effusion what cleared with treatment of the CHF as well as if the CHF was POA. Physician's Response(s): ( ) Acute Diastolic CHF ( ) POA ( ) Not POA ( ) Acute on Chronic Diastolic CHF ( ) POA ( ) Not POA ( ) Pleural Effusion ( ) due to (x ) POA ( ) Not POA Acute on chronic heart failure with preserved ejection fraction present on admission Thank you Delmi Montiel Principal Diagnosis: "that condition established after study, to be chiefly responsible for occasioning the admission of the patient to the hospital for care." Co-Existing Principal Diagnosis: "when two or more diagnoses equally meet the criteria for principal diagnosis as determined by the circumstances of admission, diagnostic work up, and/or therapy provided, and the Alphabetic Index, Tabular List, or another coding guideline does not provide sequencing direction, any one of the diagnoses may be sequenced first." "When the physician has documented what appears to be a current diagnosis in the body of the record, but has not included the diagnosis in the final diagnostic statement, the physician should be asked whether the diagnosis should be added." (Source Coding Clinic 2 QTR90. p3-4) [employer]
== END 2025-01-24 14:26 | disposition short-term general hospital (02) | DRG 314 ==
LOC: ED 21:24 → SUATTDRO 01-23 01:59 → 1E 01-23 01:59

== ENCOUNTER 2025-02-14 13:16 | Inpatient (IN) ==
--- NOTE | 2025-02-14 17:57 | History & Physical Report ---
Date of Service February 14, 2025 Assessment & Plan (1) Carcinomatosis: Plan: Has carcinomatosis of unknown primary with complications including pericardial tamponade and pleural effusions The patient diagnosed with suspected malignancy from last admission 01 07-01 12 and subsequently developed recurrence of pericardial and pleural effusions which were secondary to malignancy Status post pericardial window and right-sided thoracentesis that was done on 01/28 He is overall condition was deteriorating with persistent tachycardia and requiring high flow oxygen to maintain saturation and this was discussed with the patient and the family members by the attending physician at [facility] His prognosis remains extremely poor and today he was sent back to [facility] to be closer to his family members and If his symptoms and the condition gets worse no further escalation of management and the patient should be made comfort care onlythis was discussed with the family members and the patient by the attending at [facility] Will get palliative care involved this hospital For now continue current management as he was getting in [facility] (2) Acute hypoxic respiratory failure: Plan: Has been requiring high flow oxygen to maintain saturation Has been getting intravenous Zosyn for possible CAP (3) Pericardial effusion with cardiac tamponade: Plan: Required pericardial window (4) Bilateral pleural effusion: Plan: 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 That should be drained on Sunday, Sunday and Sunday If his condition gets worse plan to make him comfort care only (5) Pulmonary embolism: Plan: Was on Eliquis Now we will put him on subcu heparin Will not put him back on heparin drip (6) DM type 2 (diabetes mellitus, type 2): Plan: Will put him on sliding scale insulin coverage (7) HLD (hyperlipidemia): Plan DVT prophylaxis Has active thrombosis involving the upper extremity and also history of pulmonary embolism Was on Eliquis before Has been getting heparin twice daily and will continue that CODE STATUS DNR/DNI Admission and Anticipated Discharge Date Admission Date: February 14, 2025 History of Present Illness Chief Complaint: Shortness of breath and generalized pain Primary Care Provider: Peter Gong Is a 49-year-old male with significant past medical history of type 2 diabetes, hyperlipidemia, right subclavian DVT/PE was on apixaban, and recently diagnosis carcinomatosis of unknown primary apparently was transferred to [facility] from this hospital on 24 January with pericardial effusion and cardiac tamponade. At [facility] he was diagnosed with metastatic cancer of unknown primary. He underwent pericardial window on 01/28 and also now has a pleural catheter placed on the left side for chylothorax. He was ruled out for lymphoma. 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 His condition was not improving and attending physician at [facility] was discussing with the patientand \the family members regarding the prognosis. Lately he was requiring more oxygen to maintain saturation and going in and out of tachycardia more than 130s to 150s. He has been put on DNR and after discussion with the family members he was transferred to [facility] with continued supportive care of IV antibiotic and pain medications. He wanted to be closer to his family members. If his conditions gets worse we will not pursue any further escalation of care he will be placed for comfort care only.This was discussed with the patient and the family members by the attending in [facility] and also by me with the patient. Allergies Allergy/AdvReac Type Severity Reaction Status Date / Time No Known Allergies Allergy Verified 01/22/25 23:35 Home Medications Medication Instructions Recorded Confirmed Type pravastatin 20 mg tablet 20 mg PO QAM 05/17/22 01/22/25 History metformin 500 mg tablet,extended 500 mg PO BIDM 05/11/24 01/22/25 History release 24 hr acetaminophen 500 mg tablet 1,000 mg PO Q6H PRN PAIN/FEVER 08/20/24 01/22/25 History (Tylenol Extra Strength) omeprazole 20 mg capsule,delayed 20 mg PO QAM 11/19/24 01/22/25 History release apixaban 5 mg tablet (Eliquis) 5 mg PO BID 12/27/24 01/22/25 History insulin glargine U-300 conc 300 50 unit subcut HS 12/27/24 01/22/25 History unit/mL (3 mL) subcutaneous pen (Toujeo Max U-300 SoloStar) codeine 10 mg-guaifenesin 100 mg/5 5 ml PO Q6H PRN COUGH/PAIN 01/22/25 01/22/25 History mL oral liquid oxycodone-acetaminophen 5 mg-325 1 tab PO Q6H PRN Pain, Severe 01/22/25 01/22/25 History mg tablet Past Med/Surg History Problem List (Updated 02/14/25 @ 18:44 by Bruce Perez MD) Carcinomatosis Acute heart failure with preserved ejection fraction Bilateral pleural effusion Hypotension Abdominal carcinomatosis Acute hypoxic respiratory failure (Acute) Hypocalcemia (Acute) Hypomagnesemia (Acute) Chronic anemia (Acute) Pericardial effusion with cardiac tamponade (Acute) Hypoalbuminemia (Acute) Acute hyperglycemia (Acute) Pseudohyponatremia (Acute) Thrombocytosis (Acute) Acute deep vein thrombosis of upper extremity (Acute) Pulmonary embolism (Acute) Encounter for pre-operative examination Medical History DM type 2 (diabetes mellitus, type 2) HLD (hyperlipidemia) Chronic left-sided low back pain Surgical History History of tooth extraction History of inguinal hernia repair History of colonoscopy Family History Other No family history of adverse response to anesthesia Social History Smoking Status: Former smoker Tobacco Type: Cigarettes Cigarettes Per Day: 1 ppd; Second Hand Exposure: No; Do You Dip or Chew Tobacco: No; Hx Alcohol Use: No Hx Substance Use: No Preferred Language: Serbian Communication Ability: Effective Peanut Separator Required: No Beliefs That Will Affect Care: None Current Living Situation: Family Current Living Situation Comment: lives w/ and daughter Feels Safe at Home: Yes Assistive Devices: Other Review of Systems Review of Systems: All systems reviewed and are unremarkable except as noted below Physical Exam Physical Exam: Lying in bed with acute distress due to pain in the chest and also at the chest tube site Constitutional: well developed, well nourished, + ill appearing, + well hydrated and + obese Eyes: PERRL, conjunctivae normal, anicteric sclerae ENMT: external ear and nose normal, oropharynx normal Neck: trachea midline, no thyromegaly Respiratory: + respiratory distress Auscultation: + diminished lung sounds, + crackles (left side) and + wheezes (Yeah specially ifright side) Cardiovascular: Rate/Rhythm: regular rate, regular rhythm and + tachycardic Heart Sounds: normal S1 and normal S2; no murmur Extremities: + edema (Bilateral leg edema 1+) Gastrointestinal (Abdomen): Inspection/Auscultation: + abdomen distended and normal bowel sounds Percussion/Palpation: + abdomen tender and abdomen soft Musculoskeletal: No acute arthritis involving any joint Neurologic: normal touch/pain/proprioception and moves all extremities; no focal motor deficits Results & Data Results & Data Vital Signs (Past 12 Hours) Vital signs noted from transfer temperature 36.6 heart rate 120, respiration 24, blood pressure 97/68 and saturating 97% on 60% FiO2 Laboratory Results Labs noted from transfer note white cell count 13.87, hemoglobin 8.2, platelet normal morphology. BUN 14 and creatinine 0.55, glucose 282, calcium 8.7, magnesium 2.4, phosphate 4.5, INR 1.4 ALT 8 total bili less than 0.2, alkaline phos 138 AST 10, albumin 1.8, protein 7.2 LDH 04/26/1957, triglyceride 8.6, cholesterol 42, sodium 131 potassium 4.3 chloride 90 and bicarb 30 Diagnostic Findings Chest x-ray on 1120 moderate to large left pleural effusion and small right pleural effusion Upper extremity venous duplex on rightacute on chronic nonocclusive deep vein thrombosis seen in the subclavian vein, chronic appearing nonocclusive deep vein thrombosis seen in the internal jugular vein and on the left acute nonocclusive deep vein thrombosis seen in the internal jugular subclavian and axillary veins Please look for his scan report in the chart for other investigation. Code Status & VTE Plan VTE Prophylaxis Plan VTE Prophylaxis will be ordered: Yes
[2025-02-14] MEDS ORDERED: DEXTROSE 50% 50 ML SYRINGE IV PRN (18:45)
[2025-02-14] MEDS ORDERED: GLUCAGON FOR INJ 1 MG VIAL SQ PRN (18:45)
[2025-02-14] MEDS ORDERED: GLUCOSE 40% GEL 15 GM TUBE PO PRN (18:45)
[2025-02-14] MEDS ORDERED: GLUCOSE 10 TAB/TUBE PO PRN (18:45)
[2025-02-14] MEDS ORDERED: CARBOHYDRATES FOR HYPOGLYCEMIA PO PRN (18:45)
[2025-02-14] MEDS: HYDROmorphone INJ 0.5 MG/0.5 ML SYR IV PRN (19:10)
[2025-02-14] MEDS: 4.5GM X1 IV ONE (19:16)
[2025-02-14] MEDS: DICLOFENAC SOD 1% GEL 100 GM TUBE EXT SCH (20:13)
[2025-02-14] MEDS: COLCHICINE 0.6 MG TAB PO SCH (20:15)
[2025-02-14] MEDS: HEPARIN SOD 5,000 UNIT/0.5 ML VIAL SQ SCH (20:16)
[2025-02-14] MEDS: GABAPENTIN 600 MG TAB PO SCH (20:19)
[2025-02-14] MEDS: INSULIN ASPART PER UNIT CHARGE SC SCH (20:32)
[2025-02-14] MEDS: CODEINE SULFATE 30 MG TAB PO PRN (22:11)
[2025-02-15] MEDS: PIPERACILLIN/TAZOBACTAM 4.5 GM/100 ML BAG IV SCH (00:56)
[2025-02-15 06:23] LABS: Hematocrit (blood only) 27.7 % (42.0-52.0); Hemoglobin 7.8 g/dL (14.0-18.0); Immature Granulocytes # (auto) 0.14 K/uL (0.01-0.20); Immature Granulocytes % (auto) 1.0 %; Mean Corpuscular Hemoglobin 20.3 pg (25.0-34.0); Mean Corpuscular Volume 72.1 fL (80.0-100.0); Platelet Count 891 K/uL (130-400); RDW Standard Deviation 58.0 fL (36.4-46.3); Red Blood Count 3.84 M/uL (4.70-6.10); White Blood Count 14.16 K/ul (4.8-10.8)
[2025-02-15 06:41] LABS: Alanine Aminotransferase 4 U/L (7-52); Albumin Globulin Ratio 0.4 (0.9-2); Albumin Level 2.2 gm/dl (3.4-5.0); Alkaline Phosphatase 113 U/L (34-104); Anion Gap 8 (3-11); Bilirubin,Total 0.2 mg/dl (0.2-1.0); Blood Urea Nitrogen 14 mg/dl (6-23); Calcium 8.4 mg/dl (8.6-10.3); Carbon Dioxide 34 mmol/L (21-32); Chloride 90 mmol/L (98-107); Globulin 5.4 gm/dl (2.5-4.0); Glucose 182 mg/dl (70-99(Fasting)); Magnesium 2.2 mg/dl (1.7-2.4); Potassium 3.9 mmol/L (3.5-5.1); Sodium 132 mmol/L (136-145); Total Protein 7.6 gm/dl (6.0-8.3)
[2025-02-15 06:54] LABS: Anisocytosis Present; Polychromasia 2+
[2025-02-15] MEDS: ACETAMINOPHEN 500 MG TAB PO PRN (14:53)
--- NOTE | 2025-02-15 15:52 | Advance Care Plan Prog Note ---
Advanced Care Planning Note Date of Discussion February 15, 2025 ACP Discussion Diagnoses requiring ACP discussion: end stage malignancy of unknown primary, pericardial effusion, bilateral pleural effusions, A [id number] discussion with the patient, extensive family members regarding the patient's advanced care planning took place during this hospitalization on the above date. The discussion included the explanation and discussion of advance directives and associated forms/documents, as well as the patient's current code status. We also discussed at length the patient's medical conditions (both acute and chronic), general prognosis, treatment options, and goals of care. The following summarizes the discussion: Meeting was broken up into 2 parts. First meeting with patient and small group of close family. Second meeting was with extended family and patient. Both meetings covered the same agenda. Began the meeting by introducing myself themselves and our roles in the patient's life/care team. Stage patient and family's understanding of of his current medical conditions, and he was able to list that he has end stage malignancy of unknown primary, pericardial efffusions, and pleural effusions. I discussed the patient's critical condition including acute hypoxic respiratory failure secondary to bilateral pleural effusions, recurrent pericardial effusions requiring drain placement, end-stage malignancy of unknown primary with metastasis heart, lung, peritoneal cavity, amongst other places. Discussed his hypotension, significant tachycardia as well. Asked patient permission to discuss prognosis. Patient states he would like to know. Given his palliative prognostic score of 7.5 ECOG 3, palliative performance score 50, palliative prognostic index 80, severely elevated CRP and LDH, very low albumin, patient's prognosis is likely on the scale of weeks. Discussed options clinically moving forward. 1 option would be to be to continue aggressive treatments, with the hope of getting stronger to be a treatment candidate. Next option would be to follow-up with Dr. Booker in the cancer clinic to see if there is any options available to him, and sign-on with hospice in the meantime to focus on comfort. Third option would be to begin hospice services upon discharge to the hospital. Discussed hospice at length. Patient states that some quality of life and independence is important to him. He states his family is very important to him. He states he is scared of his disease process and dying. He is unsure about what he wants to do at this time and would like to discuss with his family. We discussed that we will meet tomorrow morning to discuss further. DPOA-HC/Surrogate Decision Maker - if needed Status Resuscitation Status DNR/DNI No Resuscitation Total Time I spent a total of 60 minutes was spent on this discussion, including counseling, answering questions, and completing, if any, pertinent advanced care planning forms/documents.
--- NOTE | 2025-02-15 16:09 | Hospitalist Progress Note ---
Date of Service February 15, 2025 Assessment & Plan (1) Carcinomatosis: Plan: -Has carcinomatosis of unknown primary with complications including pericardial tamponade and pleural effusions -The patient diagnosed with suspected malignancy from last admission 01 07-01 12 and subsequently developed recurrence of pericardial and pleural effusions which were secondary to malignancy -Status post pericardial window and right-sided thoracentesis that was done on 01/28 -elevated gamma gap possibly suggestive of lymphoproliferative process, biopsy pending -PaP of 7.5, ECOG 3, PPS of 50, Palliative prognostic index of 8, elevated CRP/LDH, low albumin, pericardial effusions, prognosis on scale of weeks Plan: -GOC discussion today, will continue tomorrow -start dilaudid 2mg q3hr prn, continue IV dilaudid at q3hr prn for breakthrough pain -start decadron 4mg daily for energy, appetite stimulation, neuropathic pain -rotate gabapentin to lyrica 50 tid for neuropathic pain -continue hydrocodone for cough q6hr prn -start senna daily, miralax prn for constipation (2) Acute hypoxic respiratory failure: Plan: -Has been requiring high flow oxygen to maintain saturation -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 This time includes: history taking, physical examination, medical decision making, counseling, ECG interpretation, imaging interpretation, lab interpretation, orders, and education, excluding time spent in the performance of separately billed services. Admission and Anticipated Discharge Date Admission Date: February 14, 2025 Subjective Patient seen and examined at bedside. See advanced care planning note in chart. Patient states he is in pain on his left flank, feels like a sensitive sharp pain. States he has some dyspnea as well. Denies nausea or vomiting, denies chest pain, diarrhea. States he spends most of his waking hours in bed or in a chair. Is able to stand and maybe take a few steps. Review of Systems Review of Systems: -negative unless listed below Physical Exam Physical Exam: Gen: A&O 3 NAD HEENT: NCAT, EOMI, not icteric. External ears normal. No rhinorrhea. Moist mucous membranes. Neck: Supple, full range of motion, no observable masses, No meningeal sign. Lungs: rhonchi throughout lung rene CV: tachycardic, regular rhythm Abdomen: Soft, nondistended, No rebound tenderness. MSK: 2+ pitting edema in legs bilaterally, trace pitting edema in hands Skin: No rashes, petechiae, lesions. Normal color per patient. Neuro: Normal Gait, Grossly intact. Psych: Appropriate for situation. Results & Data Results & Data Vital Signs (Past 12 Hours) Vital Signs Temp Pulse Resp BP BP Pulse Ox O2 Del Method 02/15/25 14:19 36.7 C 127 H 16 94/59 L 95 Nasal Cannula 02/15/25 11:06 High Flow Nasal Cannula 02/15/25 07:19 36.5 C 128 H 14 95/64 L 94 Nasal Cannula O2 Flow Rate 02/15/25 14:19 9 02/15/25 11:06 9 02/15/25 07:19 9 Laboratory Results -personally reviewed, leukocytosis at current baseline, Hgb stable, elevated LDH/CRP/low albumin very poor prognostic indicators, gamma gap suggestive of a potential lymphoproliferative process Medications Administered Acetaminophen (Acetaminophen 500 Mg Tab) 1,000 mg PO Q6H PRN PRN Reason: Pain or Fever Stop: 03/16/25 18:23 Last Admin: 02/15/25 14:53 Dose: 1,000 mg Documented By: ADB Colchicine (Colchicine 0.6 Mg Tab) 0.6 mg PO BID [facility] Stop: 03/16/25 20:59 Last Admin: 02/15/25 08:03 Dose: 0.6 mg Documented By: Admin: 02/14/25 20:15 Dose: 0.6 mg Documented By: JOSE Diclofenac Sodium (Diclofenac Sod 1% Gel 100 Gm Tube) 2 gm EXT QID [facility]; Protocol Stop: 03/16/25 20:59 Last Admin: 02/15/25 14:54 Dose: 2 gm Documented By: Admin: 02/15/25 08:05 Dose: Not Given Documented By: Admin: 02/14/25 20:13 Dose: 2 gm Documented By: JOSE Heparin Sodium (Porcine) (Heparin Sod 5,000 Unit/0.5 Ml Vial) 5,000 units SQ Q12 [facility] Stop: 03/16/25 20:59 Last Admin: 02/15/25 08:15 Dose: 5,000 units Documented By: Admin: 02/14/25 20:16 Dose: 5,000 units Documented By: JOSE Hydrocodone Bit/Homatropine Methylb (Hydrocodone/Homatropine Syrup 5mg/1.5mg 5ml Udp) 5 ml PO Q6H PRN PRN Reason: Cough Stop: 02/28/25 18:29 Last Admin: 02/15/25 00:56 Dose: 5 ml Documented By: JOSE Piperacillin Sod/Tazobactam Sod (Zosyn) 4.5 gm in 100 mls @ 25 mls/hr IV Q8H [facility]; Protocol Stop: 02/20/25 00:00 Last Admin: 02/15/25 16:04 Dose: 25 mls/hr Documented By: Infusion: 02/15/25 11:54 Dose: Infused Documented By: Admin: 02/15/25 07:54 Dose: 25 mls/hr Documented By: Infusion: 02/15/25 05:07 Dose: Infused Documented By: Admin: 02/15/25 00:56 Dose: 25 mls/hr Documented By: JOSE Insulin Aspart (Insulin Aspart Per Unit Charge) 0 units SC ACHS [facility] Stop: 03/16/25 20:59 Last Admin: 02/15/25 12:53 Dose: 10 units Documented By: STAN Co-signed By: ARIANE Admin: 02/15/25 08:15 Dose: 6 units Documented By: STAN Co-signed By: CK Admin: 02/14/25 20:32 Dose: 6 units Documented By: JOSE Co-signed By: SCOTT Pantoprazole Sodium (Pantoprazole 40 Mg Tab) 40 mg PO [facility] Stop: 03/17/25 08:59 Last Admin: 02/15/25 08:03 Dose: 40 mg Documented By: STAN
[2025-02-15] MEDS ORDERED: POLYETHYLENE (MIRALAX) 17 GM PACK PO PRN (16:21)
[2025-02-15] MEDS ORDERED: PRAVASTATIN SOD 20 MG TAB PO SCH (17:00)
[2025-02-15] MEDS: HYDROmorphone INJ 0.5 MG/0.5 ML SYR IV PRN (17:34)
[2025-02-15] MEDS: APIXABAN 5 MG TABLET PO SCH (20:17)
[2025-02-15] MEDS: PREGABALIN 50 MG CAP PO SCH (20:17)
[2025-02-15] MEDS: DOXYCYCLINE HYCLATE 100 MG CAP PO SCH (20:17)
[2025-02-15] MEDS: ALBUT/IPRATROP 3MG/0.5MG NEB 3 ML VIAL NEB PRN (22:45)
[2025-02-16] MEDS: ACETAMINOPHEN 500 MG TAB PO PRN (04:15)
[2025-02-16 06:25] LABS: Alanine Aminotransferase 6 U/L (7-52); Albumin Globulin Ratio 0.4 (0.9-2); Albumin Level 2.1 gm/dl (3.4-5.0); Alkaline Phosphatase 103 U/L (34-104); Anion Gap 10 (3-11); Bilirubin,Total 0.2 mg/dl (0.2-1.0); Blood Urea Nitrogen 14 mg/dl (6-23); Calcium 8.4 mg/dl (8.6-10.3); Carbon Dioxide 33 mmol/L (21-32); Chloride 87 mmol/L (98-107); Globulin 5.4 gm/dl (2.5-4.0); Glucose 233 mg/dl (70-99(Fasting)); Magnesium 2.2 mg/dl (1.7-2.4); Potassium 3.7 mmol/L (3.5-5.1); Sodium 130 mmol/L (136-145); Total Protein 7.5 gm/dl (6.0-8.3)
[2025-02-16] MEDS: SENNA 8.6 MG TAB PO SCH (08:08)
[2025-02-16] MEDS ORDERED: POLYETHYLENE (MIRALAX) 17 GM PACK PO SCH (09:00)
[2025-02-16] MEDS ORDERED: PHARMACY GLYCEMIC MGMT CONSULT PRN (13:01)
--- NOTE | 2025-02-16 14:04 | Pharmacy Report ---
Pharmacy Glycemic Short Note 2 - Date of Service February 16, 2025 - Glycemic Short BSG Results (Last 24 hours): 02/15/25 02/15/25 02/16/25 16:12 20:20 05:40 Glucose 233 H POC Glucose 230 H 209 H 02/16/25 02/16/25 02/16/25 07:40 11:42 11:44 Glucose POC Glucose 245 H 351 H* 371 H* OUTPATIENT ANTIDIABETIC REGIMEN: * Insulin glargine (Toujeo) 50 units nightly * Metformin 500mg PO BID * HbA1c: 11.7% (12/01/2024) ASSESSMENT: * Dorian is a 49 year old male with T2DM who was transferred from [facility] on 02/14 to be closer to family * Glucose values have ranged from 180-370 in the past 24 hours * Patient was on Novolog sliding scale with CF/CR of 20/10 * Patient was initiated on dexamethasone 4mg daily for appetite stimulation, energy, and neuropathic pain * Home regimen - confirmed with patient - is 50 units of glargine nightly and metformin * Sliding scale glargine tonight 01/08/20 * Lower dose tonight than home regimen since patient is only on basal (no bolus) at home and he will be getting both here, and unknown how much patient will be eating here * Give NPH 10 units x1 now to bridge to the sliding scale glargine tonight - most recent glucose at lunch was 371 and also got 12 units Novolog * Tightened CF/CR to 20/8 for now * Added 0000 and 0400 glucose checks overnight tonight for extra control of BSG * Stressors: dexamethasone 4mg daily, possible infection PLAN FOR INPATIENT GLYCEMIC CONTROL: * Hold outpatient oral diabetes medications * Basal insulin * Lantus scale 01/08/20 (10 units if <180, 15 units if 180-250, 20 units if >250) * Bolus insulin * NovoLog per scale ACHS or Q6hrs while NPO * Goal Range: Low 110 mg/dL - High 140 mg/dL * Correction Factor: 20 mg/dL/unit * Nutritional / Prandial insulin per carb ratio of 1 unit per 8 grams CHO consumed
[2025-02-16] MEDS: HYDROmorphone INJ 0.5 MG/0.5 ML SYR IV PRN ×2 (14:08→19:17)
[2025-02-16] MEDS: NovoLIN-N (NPH) PER UNIT CHARGE SQ ONE (14:09)
--- NOTE | 2025-02-16 14:47 | Hospitalist Progress Note ---
Date of Service February 16, 2025 Assessment & Plan (1) Carcinomatosis: Plan: -Has carcinomatosis of unknown primary with complications including pericardial tamponade and pleural effusions -The patient diagnosed with suspected malignancy from last admission 01 07-01 12 and subsequently developed recurrence of pericardial and pleural effusions which were secondary to malignancy -Status post pericardial window and right-sided thoracentesis that was done on 01/28 -elevated gamma gap possibly suggestive of lymphoproliferative process, biopsy pending -PaP of 7.5, ECOG 3, PPS of 50, Palliative prognostic index of 8, elevated CRP/LDH, low albumin, pericardial effusions, prognosis on scale of weeks Plan: -GOC discussion today, will continue tomorrow -rotate dilaudid 2mg PO to 10mg PO morphine (2mgx2 (ineffective dose adjustment)=[id number]=68 MME/2 for cross tolerance=8mg~round up to 10mg, morphine), increase IV dilaudid to 1mg q3hr prn for breakthrough pain -continue decadron 4mg daily for energy, appetite stimulation, neuropathic pain -increase lyrica to 75 tid for neuropathic pain -continue hydrocodone for cough q6hr prn -start senna daily, miralax prn for constipation (2) Acute hypoxic respiratory failure: Plan: -Has been requiring high flow oxygen to maintain saturation -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 -That should be drained on Sunday, Sunday and Sunday (5) Pulmonary embolism: Plan: -eliquis not contraindicated even on hospice given extent of PEs -eliquis will give back quality of life, prevent worsening blood clots -restart eliquis, stop heparin (6) DM type 2 (diabetes mellitus, type 2): Plan: -SSI -pharmacy consult given on decadron (7) HLD (hyperlipidemia): Plan I spent a total of 60 minutes in direct patient care, including [id number] time with the patient and/or family, reviewing medical records, ordering and reviewing diagnostic tests, and coordinating care with other healthcare providers. This time includes: history taking, physical examination, medical decision making, counseling, ECG interpretation, imaging interpretation, lab interpretation, orders, and education, excluding time spent in the performance of separately billed services. Admission and Anticipated Discharge Date Admission Date: February 14, 2025 Subjective Patient seen and examined at bedside. present as well. Patient has decided to pursue home hospice services at discharge. Pain has been severe on left flank overnight. Dilaudid PO not very effective, IV somewhat effective. Review of Systems Review of Systems: CONSTITUTIONAL: fatigue, weakness EYES: Patient denies any visual symptoms. EARS, NOSE, AND THROAT: No difficulties with hearing. No symptoms of rhinitis or sore throat. CARDIOVASCULAR: Patient denies chest pains, palpitations, orthopnea and paroxysmal nocturnal dyspnea. RESPIRATORY: dyspnea GI: No nausea, vomiting, diarrhea, constipation, abdominal pain, hematochezia or melena. : No urinary hesitancy or dribbling. No nocturia or urinary frequency. No abnormal urethral discharge. MUSCULOSKELETAL: No myalgias or arthralgias. NEUROLOGIC: No chronic headaches, no seizures. Patient denies numbness, tingling or weakness. PSYCHIATRIC: Patient denies problems with mood disturbance. No problems with anxiety. ENDOCRINE: No excessive urination or excessive thirst. DERMATOLOGIC: Patient denies any rashes or skin changes. Physical Exam Physical Exam: Gen: A&O 3 NAD HEENT: NCAT, EOMI, not icteric. External ears normal. No rhinorrhea. Moist mucous membranes. Neck: Supple, full range of motion, no observable masses, No meningeal sign. Lungs: rhonchi throughout lung rene CV: tachycardic, regular rhythm Abdomen: Soft, nondistended, No rebound tenderness. MSK: 2+ pitting edema in legs bilaterally, trace pitting edema in hands Skin: No rashes, petechiae, lesions. Normal color per patient. Neuro: Normal Gait, Grossly intact. Psych: Appropriate for situation. Results & Data Results & Data Vital Signs (Past 12 Hours) Vital Signs Temp Pulse Resp BP Pulse Ox O2 Del Method O2 Flow Rate 02/16/25 07:41 36.7 C 117 H 16 99/65 L 91 High Flow Nasal Cannula 7 Laboratory Results -personally reviewed, Na at baseline, elevated procal suggestive of ongoing infection vs. end stage malignancy Medications Administered Acetaminophen (Acetaminophen 500 Mg Tab) 1,000 mg PO Q6H PRN PRN Reason: Fever or headache Stop: 03/16/25 18:23 Last Admin: 02/16/25 04:15 Dose: 1,000 mg Documented By: LIONEL Albuterol (Albut/Ipratrop 3mg/0.5mg Neb 3 Ml Vial) 3 ml NEB Q6R PRN; Protocol PRN Reason: Shortness Of Breath Or Wheezing Stop: 03/17/25 16:18 Last Admin: 02/15/25 22:45 Dose: 3 ml Documented By: KARIME Apixaban (Apixaban 5 Mg Tablet) 5 mg PO BID [facility] Stop: 03/17/25 20:59 Last Admin: 02/16/25 08:05 Dose: 5 mg Documented By: Admin: 02/15/25 20:17 Dose: 5 mg Documented By: JOSE Colchicine (Colchicine 0.6 Mg Tab) 0.6 mg PO BID [facility] Stop: 03/16/25 20:59 Last Admin: 02/16/25 08:07 Dose: 0.6 mg Documented By: Admin: 02/15/25 20:12 Dose: 0.6 mg Documented By: Admin: 02/15/25 08:03 Dose: 0.6 mg Documented By: Admin: 02/14/25 20:15 Dose: 0.6 mg Documented By: JOSE Dexamethasone (Dexamethasone 4 Mg Tab) 4 mg PO DAILYBB [facility] Stop: 03/17/25 14:49 Last Admin: 02/16/25 06:07 Dose: 4 mg Documented By: Admin: 02/15/25 16:14 Dose: 4 mg Documented By: STAN Diclofenac Sodium (Diclofenac Sod 1% Gel 100 Gm Tube) 2 gm EXT QID [facility]; Protocol Stop: 03/16/25 20:59 Last Admin: 02/16/25 13:03 Dose: 2 gm Documented By: Admin: 02/16/25 08:06 Dose: 2 gm Documented By: Admin: 02/15/25 20:13 Dose: 2 gm Documented By: Admin: 02/15/25 17:40 Dose: 2 gm Documented By: Admin: 02/15/25 14:54 Dose: 2 gm Documented By: Admin: 02/15/25 08:05 Dose: Not Given Documented By: Admin: 02/14/25 20:13 Dose: 2 gm Documented By: JOSE Doxycycline Hyclate (Doxycycline Hyclate 100 Mg Cap) 100 mg PO BID [facility] Stop: 02/20/25 20:59 Last Admin: 02/16/25 08:05 Dose: 100 mg Documented By: Admin: 02/15/25 20:17 Dose: 100 mg Documented By: JOSE Hydrocodone Bit/Homatropine Methylb (Hydrocodone/Homatropine Syrup 5mg/1.5mg 5ml Udp) 5 ml PO Q6H PRN PRN Reason: Cough Stop: 02/28/25 18:29 Last Admin: 02/15/25 00:56 Dose: 5 ml Documented By: JOSE Hydromorphone HCl (Hydromorphone Inj 0.5 Mg/0.5 Ml Syr) 1 mg IV Q3HWA PRN PRN Reason: Breakthrough Pain Stop: 02/28/25 18:24 Last Admin: 02/16/25 14:08 Dose: 1 mg Documented By: ABBE Piperacillin Sod/Tazobactam Sod (Zosyn) 4.5 gm in 100 mls @ 25 mls/hr IV Q8H [facility]; Protocol Stop: 02/20/25 00:00 Last Infusion: 02/16/25 12:08 Dose: Infused Documented By: Admin: 02/16/25 08:04 Dose: 25 mls/hr Documented By: Infusion: 02/16/25 04:13 Dose: Infused Documented By: Admin: 02/16/25 00:15 Dose: 25 mls/hr Documented By: Infusion: 02/15/25 20:13 Dose: Infused Documented By: Admin: 02/15/25 16:04 Dose: 25 mls/hr Documented By: Infusion: 02/15/25 11:54 Dose: Infused Documented By: Admin: 02/15/25 07:54 Dose: 25 mls/hr Documented By: Infusion: 02/15/25 05:07 Dose: Infused Documented By: Admin: 02/15/25 00:56 Dose: 25 mls/hr Documented By: JOSE Insulin Aspart (Insulin Aspart Per Unit Charge) 0 units SC ACHS [facility] Stop: 03/16/25 20:59 Last Admin: 02/16/25 13:02 Dose: 12 units Documented By: KARI Co-signed By: CK Admin: 02/16/25 09:25 Dose: 6 units Documented By: KARI Co-signed By: CK Admin: 02/15/25 21:21 Dose: 4 units Documented By: JOSE Co-signed By: QUENTIN Admin: 02/15/25 17:38 Dose: 8 units Documented By: STAN Co-signed By: ARIANE Admin: 02/15/25 12:53 Dose: 10 units Documented By: STAN Co-signed By: ARIANE Admin: 02/15/25 08:15 Dose: 6 units Documented By: STAN Co-signed By: CK Admin: 02/14/25 20:32 Dose: 6 units Documented By: JOSE Co-signed By: SCOTT Pantoprazole Sodium (Pantoprazole 40 Mg Tab) 40 mg PO QAM [facility] Stop: 03/17/25 08:59 Last Admin: 02/16/25 08:05 Dose: 40 mg Documented By: Admin: 02/15/25 08:03 Dose: 40 mg Documented By: STAN Pregabalin (Pregabalin 50 Mg Cap) 50 mg PO TID [facility] Stop: 03/17/25 20:59 Last Admin: 02/16/25 08:01 Dose: 50 mg Documented By: Admin: 02/15/25 20:17 Dose: 50 mg Documented By: JOSE Sennosides (Senna 8.6 Mg Tab) 8.6 mg PO QAM [facility] Stop: 03/18/25 08:59 Last Admin: 02/16/25 08:08 Dose: Not Given Documented By: KARI
[2025-02-16] MEDS: PREGABALIN 75 MG CAP PO SCH (15:02)
[2025-02-16] MEDS: MoRPHine SULFATE 10 MG/0.5 ML UDP PO PRN (18:33)
[2025-02-16] MEDS: ONDANSETRON INJ 2 MG/ML 2 ML VIAL IV PRN (20:27)
[2025-02-16] MEDS ORDERED: PREGABALIN 75 MG CAP PO SCH (21:00)
[2025-02-16] MEDS: LANTUS PER UNIT CHARGE SC SCH (21:14)
[2025-02-17] MEDS: INSULIN ASPART PER UNIT CHARGE SC SCH
[2025-02-17 06:11] LABS: Hematocrit (blood only) 29.8 % (42.0-52.0); Hemoglobin 8.3 g/dL (14.0-18.0); Mean Corpuscular Hemoglobin 20.2 pg (25.0-34.0); Mean Corpuscular Volume 72.7 fL (80.0-100.0); Platelet Count 903 K/uL (130-400); RDW Standard Deviation 58.2 fL (36.4-46.3); Red Blood Count 4.10 M/uL (4.70-6.10); White Blood Count 14.40 K/ul (4.8-10.8)
[2025-02-17 06:29] LABS: Alanine Aminotransferase 6 U/L (7-52); Albumin Globulin Ratio 0.4 (0.9-2); Albumin Level 2.1 gm/dl (3.4-5.0); Alkaline Phosphatase 103 U/L (34-104); Anion Gap 6 (3-11); Bilirubin,Total 0.1 mg/dl (0.2-1.0); Blood Urea Nitrogen 12 mg/dl (6-23); Calcium 8.7 mg/dl (8.6-10.3); Carbon Dioxide 35 mmol/L (21-32); Chloride 90 mmol/L (98-107); Globulin 5.3 gm/dl (2.5-4.0); Glucose 187 mg/dl (70-99(Fasting)); Magnesium 2.2 mg/dl (1.7-2.4); Potassium 3.6 mmol/L (3.5-5.1); Sodium 131 mmol/L (136-145); Total Protein 7.4 gm/dl (6.0-8.3)
[2025-02-17] MEDS: INSULIN HUMAN REGULAR PER UNIT 5 UNITS in SYRINGE 4.95 ML IV ONE (12:09)
--- NOTE | 2025-02-17 12:47 | Pharmacy Report ---
Pharmacy Glycemic Short Note 2 - Date of Service February 17, 2025 - Glycemic Short BSG Results (Last 24 hours): 02/16/25 02/16/25 02/16/25 16:10 21:06 23:53 Glucose POC Glucose 322 H* 195 H 224 H 02/17/25 02/17/25 02/17/25 03:54 05:48 07:46 Glucose 187 H POC Glucose 219 H 190 H 02/17/25 02/17/25 11:26 11:29 Glucose POC Glucose 427 H* 332 H* OUTPATIENT ANTIDIABETIC REGIMEN: * Insulin glargine (Toujeo) 50 units nightly * Metformin 500mg PO BID * HbA1c: 11.7% (12/01/2024) ASSESSMENT: 02/17 * Fasting improved with addition of Basal insulin but still above goal- will increase scale tonight * Hyperglycemic at lunch today but patient had an uncovered breakfast. Will continue with current novolog parameters but will monitor for trend today and possibly tighten with dinner/or at bedtime 02/16 * Dorian is a 49 year old male with T2DM who was transferred from [facility] on 02/14 to be closer to family * Glucose values have ranged from 180-370 in the past 24 hours * Patient was on Novolog sliding scale with CF/CR of 20/10 * Patient was initiated on dexamethasone 4mg daily for appetite stimulation, energy, and neuropathic pain * Home regimen - confirmed with patient - is 50 units of glargine nightly and metformin * Sliding scale glargine tonight 01/08/20 * Lower dose tonight than home regimen since patient is only on basal (no bolus) at home and he will be getting both here, and unknown how much patient will be eating here * Give NPH 10 units x1 now to bridge to the sliding scale glargine tonight - most recent glucose at lunch was 371 and also got 12 units Novolog * Tightened CF/CR to 20/8 for now * Added 0000 and 0400 glucose checks overnight tonight for extra control of BSG * Stressors: dexamethasone 4mg daily, possible infection PLAN FOR INPATIENT GLYCEMIC CONTROL: * Hold outpatient oral diabetes medications * Basal insulin * Lantus scale 20/25/30 (20 units if <180, 25 units if 180-250, 30 units if >250) * Bolus insulin * NovoLog per scale ACHS or Q6hrs while NPO * Goal Range: Low 110 mg/dL - High 140 mg/dL * Correction Factor: 20 mg/dL/unit * Nutritional / Prandial insulin per carb ratio of 1 unit per 6 grams CHO consumed
--- NOTE | 2025-02-17 14:24 | Hospitalist Progress Note ---
Date of Service February 17, 2025 Assessment & Plan (1) Carcinomatosis: Plan: -Has carcinomatosis of unknown primary with complications including pericardial tamponade and pleural effusions -The patient diagnosed with suspected malignancy from last admission 01 07-01 12 and subsequently developed recurrence of pericardial and pleural effusions which were secondary to malignancy -Status post pericardial window and right-sided thoracentesis that was done on 01/28 -elevated gamma gap possibly suggestive of lymphoproliferative process, biopsy pending -PaP of 7.5, ECOG 3, PPS of 50, Palliative prognostic index of 8, elevated CRP/LDH, low albumin, pericardial effusions, prognosis on scale of weeks Plan: -see GOC discussions in prior documentation, discharge on hospice -rotate morphine to percocet 10mg q3hr prn, continue dilaudid 0.5mg q3hr prn, discussed with nurse need to trial PO before IV -hospice can titrate meds on discharge if needed -continue decadron 4mg daily for energy, appetite stimulation, neuropathic pain -continue lyrica 75 tid for neuropathic pain -if pain uncontrolled pain tomorrow, would increase to 100mg tid -continue hydrocodone for cough q6hr prn -continue senna daily, miralax prn for constipation -working on discharge home with hospice, complicated by logisticial issues getting equipment to house -found bottles with [facility] for specific type of pleurx drain (2) Acute hypoxic respiratory failure: Plan: -Has been requiring high flow oxygen to maintain saturation -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 -That should be drained on Sunday, Sunday and Sunday (5) Pulmonary embolism: Plan: -eliquis not contraindicated even on hospice given extent of PEs -eliquis will give back quality of life, prevent worsening blood clots -continue eliquis on hospice (6) DM type 2 (diabetes mellitus, type 2): Plan: -SSI -discussed with pharmacy extensively today and nursing as well (7) HLD (hyperlipidemia): Plan I spent a total of 55 minutes in direct patient care, including [id number] time with the patient and/or family, reviewing medical records, ordering and reviewing diagnostic tests, and coordinating care with other healthcare providers. This time includes: history taking, physical examination, medical decision making, counseling, ECG interpretation, imaging interpretation, lab interpretation, orders, and education, excluding time spent in the performance of separately billed services. Admission and Anticipated Discharge Date Admission Date: February 14, 2025 Subjective Patient seen and examined at bedside. Patient doing ok today. Does not feel the morphine is helpful. States percocets help him. Discussed hospice at home discharge planning, including needing a litter van to help him get home. He was appreciative of the updates. Review of Systems Review of Systems: CONSTITUTIONAL: fatigue, weakness EYES: Patient denies any visual symptoms. EARS, NOSE, AND THROAT: No difficulties with hearing. No symptoms of rhinitis or sore throat. CARDIOVASCULAR: Patient denies chest pains, palpitations, orthopnea and paroxysmal nocturnal dyspnea. RESPIRATORY: dyspnea GI: No nausea, vomiting, diarrhea, constipation, abdominal pain, hematochezia or melena. : No urinary hesitancy or dribbling. No nocturia or urinary frequency. No abnormal urethral discharge. MUSCULOSKELETAL: No myalgias or arthralgias. NEUROLOGIC: No chronic headaches, no seizures. Patient denies numbness, tingling or weakness. PSYCHIATRIC: Patient denies problems with mood disturbance. No problems with anxiety. ENDOCRINE: No excessive urination or excessive thirst. DERMATOLOGIC: Patient denies any rashes or skin changes. Physical Exam Physical Exam: Gen: A&O 3 NAD HEENT: NCAT, EOMI, not icteric. External ears normal. No rhinorrhea. Moist mucous membranes. Neck: Supple, full range of motion, no observable masses, No meningeal sign. Lungs: rhonchi throughout lung rene CV: tachycardic, regular rhythm Abdomen: left sided drain placed, tender to palpation MSK: 2+ pitting edema in legs bilaterally, trace pitting edema in hands Skin: No rashes, petechiae, lesions. Normal color per patient. Neuro: Normal Gait, Grossly intact. Psych: Appropriate for situation. Results & Data Results & Data Vital Signs (Past 12 Hours) Vital Signs Temp Pulse Resp BP Pulse Ox O2 Del Method O2 Flow Rate 02/17/25 10:26 Nasal Cannula 7 02/17/25 07:45 36.5 C 106 H 16 106/68 91 Nasal Cannula, High Flow Nasal Cannula 7 Laboratory Results -personally reviewed, leukocytosis slightly uptrending, Na stable, creatinine at baseline, elevated glucose noted Medications Administered Albuterol (Albut/Ipratrop 3mg/0.5mg Neb 3 Ml Vial) 3 ml NEB Q6R PRN; Protocol PRN Reason: Shortness Of Breath Or Wheezing Stop: 03/17/25 16:18 Last Admin: 02/15/25 22:45 Dose: 3 ml Documented By: KARIME Apixaban (Apixaban 5 Mg Tablet) 5 mg PO BID [facility] Stop: 03/17/25 20:59 Last Admin: 02/17/25 09:04 Dose: 5 mg Documented By: cl Admin: 02/16/25 19:18 Dose: 5 mg Documented By: Admin: 02/16/25 08:05 Dose: 5 mg Documented By: Admin: 02/15/25 20:17 Dose: 5 mg Documented By: JOSE Colchicine (Colchicine 0.6 Mg Tab) 0.6 mg PO BID [facility] Stop: 03/16/25 20:59 Last Admin: 02/17/25 09:03 Dose: 0.6 mg Documented By: cl Admin: 02/16/25 19:18 Dose: 0.6 mg Documented By: Admin: 02/16/25 08:07 Dose: 0.6 mg Documented By: Admin: 02/15/25 20:12 Dose: 0.6 mg Documented By: Admin: 02/15/25 08:03 Dose: 0.6 mg Documented By: Admin: 02/14/25 20:15 Dose: 0.6 mg Documented By: JOSE Dexamethasone (Dexamethasone 4 Mg Tab) 4 mg PO DAILYBB [facility] Stop: 03/17/25 14:49 Last Admin: 02/17/25 06:00 Dose: 4 mg Documented By: Admin: 02/16/25 06:07 Dose: 4 mg Documented By: Admin: 02/15/25 16:14 Dose: 4 mg Documented By: STAN Diclofenac Sodium (Diclofenac Sod 1% Gel 100 Gm Tube) 2 gm EXT QID KELLE; Protocol Stop: 03/16/25 20:59 Last Admin: 02/17/25 13:43 Dose: 2 gm Documented By: cl Admin: 02/17/25 09:04 Dose: 2 gm Documented By: cl Admin: 02/16/25 19:22 Dose: Not Given Documented By: Admin: 02/16/25 17:38 Dose: 2 gm Documented By: Admin: 02/16/25 13:03 Dose: 2 gm Documented By: Admin: 02/16/25 08:06 Dose: 2 gm Documented By: Admin: 02/15/25 20:13 Dose: 2 gm Documented By: Admin: 02/15/25 17:40 Dose: 2 gm Documented By: Admin: 02/15/25 14:54 Dose: 2 gm Documented By: Admin: 02/15/25 08:05 Dose: Not Given Documented By: Admin: 02/14/25 20:13 Dose: 2 gm Documented By: JOSE Doxycycline Hyclate (Doxycycline Hyclate 100 Mg Cap) 100 mg PO BID [facility]LE Stop: 02/20/25 20:59 Last Admin: 02/17/25 09:03 Dose: 100 mg Documented By: cl Admin: 02/16/25 19:19 Dose: 100 mg Documented By: Admin: 02/16/25 08:05 Dose: 100 mg Documented By: Admin: 02/15/25 20:17 Dose: 100 mg Documented By: JOSE Hydrocodone Bit/Homatropine Methylb (Hydrocodone/Homatropine Syrup 5mg/1.5mg 5ml Udp) 5 ml PO Q6H PRN PRN Reason: Cough Stop: 02/28/25 18:29 Last Admin: 02/15/25 00:56 Dose: 5 ml Documented By: JOSE Hydromorphone HCl (Hydromorphone Inj 0.5 Mg/0.5 Ml Syr) 0.5 mg IV Q3HWA PRN PRN Reason: Breakthrough Pain Stop: 02/28/25 18:24 Last Admin: 02/17/25 12:18 Dose: 0.5 mg Documented By: cl Admin: 02/17/25 09:16 Dose: 0.5 mg Documented By: cl Admin: 02/17/25 06:10 Dose: 0.5 mg Documented By: Admin: 02/17/25 03:09 Dose: 0.5 mg Documented By: Admin: 02/17/25 00:01 Dose: 0.5 mg Documented By: Admin: 02/16/25 19:17 Dose: 0.5 mg Documented By: JOSE Piperacillin Sod/Tazobactam Sod (Zosyn) 4.5 gm in 100 mls @ 25 mls/hr IV Q8H KELLE; Protocol Stop: 02/20/25 00:00 Last Infusion: 02/17/25 13:45 Dose: Infused Documented By: cl Admin: 02/17/25 08:57 Dose: 25 mls/hr Documented By: cl Infusion: 02/17/25 04:05 Dose: Infused Documented By: Admin: 02/17/25 00:01 Dose: 25 mls/hr Documented By: Infusion: 02/16/25 19:24 Dose: Infused Documented By: Admin: 02/16/25 15:02 Dose: 25 mls/hr Documented By: Infusion: 02/16/25 12:08 Dose: Infused Documented By: Admin: 02/16/25 08:04 Dose: 25 mls/hr Documented By: Infusion: 02/16/25 04:13 Dose: Infused Documented By: Admin: 02/16/25 00:15 Dose: 25 mls/hr Documented By: Infusion: 02/15/25 20:13 Dose: Infused Documented By: Admin: 02/15/25 16:04 Dose: 25 mls/hr Documented By: Infusion: 02/15/25 11:54 Dose: Infused Documented By: Admin: 02/15/25 07:54 Dose: 25 mls/hr Documented By: Infusion: 02/15/25 05:07 Dose: Infused Documented By: Admin: 02/15/25 00:56 Dose: 25 mls/hr Documented By: JOSE Insulin Aspart (Insulin Aspart Per Unit Charge) 0 units SC ACHS [facility]EL[facility] Stop: 03/16/25 20:59 Last Admin: 02/17/25 12:11 Dose: Not Given Documented By: cl Admin: 02/17/25 09:42 Dose: Not Given Documented By: cl Admin: 02/16/25 21:14 Dose: 3 units Documented By: JOSE Co-signed By: CHRIS Admin: 02/16/25 17:37 Dose: 18 units Documented By: KARI Co-signed By: ABBE Admin: 02/16/25 13:02 Dose: 12 units Documented By: KARI Co-signed By: CK Admin: 02/16/25 09:25 Dose: 6 units Documented By: KARI Co-signed By: CK Admin: 02/15/25 21:21 Dose: 4 units Documented By: JOSE Co-signed By: QUENTIN Admin: 02/15/25 17:38 Dose: 8 units Documented By: STAN Co-signed By: ARIANE Admin: 02/15/25 12:53 Dose: 10 units Documented By: STAN Co-signed By: ARIANE Admin: 02/15/25 08:15 Dose: 6 units Documented By: STAN Co-signed By: CK Admin: 02/14/25 20:32 Dose: 6 units Documented By: JOSE Co-signed By: SCOTT Insulin Glargine (Lantus Per Unit Charge) 0 units SC [facility]; Protocol Stop: 03/18/25 20:59 Last Admin: 02/16/25 21:14 Dose: 15 units Documented By: JOSE Co-signed By: CHRIS Ondansetron HCl (Ondansetron Inj 2 Mg/Ml 2 Ml Vial) 4 mg IV Q6H PRN PRN Reason: Nausea And Vomiting Stop: 03/16/25 18:24 Last Admin: 02/16/25 20:27 Dose: 4 mg Documented By: JOSE [facility]oprazole S[facility] ([facility]oprazole 40 Mg Tab) [facility] Stop: 03/17/25 08:59 Last Admin: 02/17/25 09:03 Dose: 40 mg Documented By: cl Admin: 02/16/25 08:05 Dose: 40 mg Documented By: Admin: 02/15/25 08:03 Dose: 40 mg Documented By: STAN Pregabalin (Pregabalin 75 Mg Cap) 75 mg PO TID [facility] Stop: 03/18/25 14:59 Last Admin: 02/17/25 14:16 Dose: 75 mg Documented By: cl Admin: 02/17/25 09:08 Dose: 75 mg Documented By: cl Admin: 02/16/25 19:19 Dose: 75 mg Documented By: Admin: 02/16/25 15:02 Dose: 75 mg Documented By: KARI Sennosides (Senna 8.6 Mg Tab) 8.[facility] Stop: 03/18/25 08:59 Last Admin: 02/17/25 09:08 Dose: 8.6 mg Documented By: cl Admin: 02/16/25 08:08 Dose: Not Given Documented By: KARI
[2025-02-18] MEDS: INSULIN ASPART PER UNIT CHARGE SC SCH (00:18)
[2025-02-18] MEDS: INSULIN HUMAN REGULAR PER UNIT 5 UNITS in SYRINGE 4.95 ML IV ONE (00:29)
[2025-02-18] MEDS: LORazepam 0.5 MG TAB PO PRN (03:36)
[2025-02-18 06:49] LABS: Hematocrit (blood only) 29.7 % (42.0-52.0); Hemoglobin 8.2 g/dL (14.0-18.0); Mean Corpuscular Hemoglobin 20.2 pg (25.0-34.0); Mean Corpuscular Volume 73.2 fL (80.0-100.0); Platelet Count 857 K/uL (130-400); RDW Standard Deviation 58.2 fL (36.4-46.3); Red Blood Count 4.06 M/uL (4.70-6.10); White Blood Count 14.39 K/ul (4.8-10.8)
[2025-02-18 07:15] LABS: Alanine Aminotransferase 9 U/L (7-52); Albumin Globulin Ratio 0.4 (0.9-2); Albumin Level 2.2 gm/dl (3.4-5.0); Alkaline Phosphatase 98 U/L (34-104); Anion Gap 6 (3-11); Bilirubin,Total 0.1 mg/dl (0.2-1.0); Blood Urea Nitrogen 14 mg/dl (6-23); Calcium 8.6 mg/dl (8.6-10.3); Carbon Dioxide 34 mmol/L (21-32); Chloride 92 mmol/L (98-107); Globulin 5.1 gm/dl (2.5-4.0); Glucose 154 mg/dl (70-99(Fasting)); Potassium 3.7 mmol/L (3.5-5.1); Sodium 132 mmol/L (136-145); Total Protein 7.3 gm/dl (6.0-8.3)
[2025-02-18 07:38] VITALS: BP 107/62; PULSE 116; RESP 16; TEMP 98.1; O2SAT 95
--- NOTE | 2025-02-18 11:58 | Pharmacy Report ---
Pharmacy Glycemic Short Note 2 - Date of Service February 18, 2025 - Glycemic Short BSG Results (Last 24 hours): 02/17/25 02/17/25 02/17/25 16:19 16:23 16:26 Glucose POC Glucose 351 H* 473 H* 361 H* 02/17/25 02/17/25 02/18/25 20:50 20:52 00:06 Glucose POC Glucose 353 H* 374 H* 327 H* 02/18/25 02/18/25 02/18/25 00:08 03:58 06:32 Glucose 154 H POC Glucose 328 H* 149 H 02/18/25 02/18/25 07:36 11:45 Glucose POC Glucose 204 H 179 H OUTPATIENT ANTIDIABETIC REGIMEN: * Insulin glargine (Toujeo) 50 units nightly * Metformin 500mg PO BID * HbA1c: 11.7% (12/01/2024) ASSESSMENT: 02/18 * Dorian received a total of 83 units of insulin yesterday (40 units were basal and 43 units were bolus). BSGs were still significantly above goal all of yesterday. * Fasting BSG was 204mg/dL this morning. HS Lantus scale was increased so now he will receive either 20 or 40 units depending on BSG. * Bolus insulin parameters were tightened last evening, so will continue this regimen today. 02/17 * Fasting improved with addition of Basal insulin but still above goal- will increase scale tonight * Hyperglycemic at lunch today but patient had an uncovered breakfast. Will continue with current novolog parameters but will monitor for trend today and possibly tighten with dinner/or at bedtime 02/16 * Dorian is a 49 year old male with T2DM who was transferred from [facility] on 02/14 to be closer to family * Glucose values have ranged from 180-370 in the past 24 hours * Patient was on Novolog sliding scale with CF/CR of / * Patient was initiated on dexamethasone 4mg daily for appetite stimulation, energy, and neuropathic pain * Home regimen - confirmed with patient - is 50 units of glargine nightly and metformin * Sliding scale glargine tonight 01/08/20 * Lower dose tonight than home regimen since patient is only on basal (no bolus) at home and he will be getting both here, and unknown how much patient will be eating here * Give NPH 10 units x1 now to bridge to the sliding scale glargine tonight - most recent glucose at lunch was 371 and also got 12 units Novolog * Tightened CF/CR to 20/8 for now * Added 0000 and 0400 glucose checks overnight tonight for extra control of BSG * Stressors: dexamethasone 4mg daily, possible infection PLAN FOR INPATIENT GLYCEMIC CONTROL: * Hold outpatient oral diabetes medications * Basal insulin * Lantus scale 20/ 40 (20 units if BSG <200, 40 units if BSG > or = 200) * Bolus insulin * NovoLog per scale ACHS or Q6hrs while NPO * Goal Range: Low 110 mg/dL - High 140 mg/dL * Correction Factor: 15 mg/dL/unit * Nutritional / Prandial insulin per carb ratio of 1 unit per 6 grams CHO consumed
--- NOTE | 2025-02-18 12:30 | Discharge Summary ---
Discharge Summary Date of Service February 18, 2025 Principal Dx & Hospital Course #1 = Principal Diagnosis (1) Carcinomatosis: per previous hospitalist notes with addendum: -Has carcinomatosis of unknown primary with complications including pericardial tamponade and pleural effusions -The patient diagnosed with suspected malignancy from last admission 01 07-01 12 and subsequently developed recurrence of pericardial and pleural effusions which were secondary to malignancy -Status post pericardial window and right-sided thoracentesis that was done on 01/28 -elevated gamma gap possibly suggestive of lymphoproliferative process, biopsy pending -PaP of 7.5, ECOG 3, PPS of 50, Palliative prognostic index of 8, elevated CRP/LDH, low albumin, pericardial effusions, prognosis on scale of weeks Plan: -see GOC discussions in prior documentation, discharge on hospice -rotate morphine to percocet 10mg q3hr prn, continue dilaudid 0.5mg q3hr prn, discussed with nurse need to trial PO before IV -hospice can titrate meds on discharge if needed -continue decadron 4mg daily for energy, appetite stimulation, neuropathic pain -continue lyrica 75 tid for neuropathic pain -if pain uncontrolled pain tomorrow, would increase to 100mg tid -continue hydrocodone for cough q6hr prn -continue senna daily, miralax prn for constipation -working on discharge home with hospice, complicated by logisticial issues getting equipment to house -found bottles with [facility] for specific type of pleurx drain 02/18 stable for discharge discussed with case management- home hospice service to meet patient upon returning home today (2) Acute hypoxic respiratory failure: -Has been requiring high flow oxygen to maintain saturation -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 -That should be drained on Sunday, Sunday and Sunday (5) Pulmonary embolism: -eliquis not contraindicated even on hospice given extent of PEs -eliquis will give back quality of life, prevent worsening blood clots -continue eliquis on hospice (6) DM type 2 (diabetes mellitus, type 2): -SSI -discussed with pharmacy extensively today and nursing as well (7) HLD (hyperlipidemia): Notes For Next Care Provider Medication Changes From Visit as per med rec Admission HPI Per Admitting Provider Is a 49-year-old male with significant past medical history of type 2 diabetes, hyperlipidemia, right subclavian DVT/PE was on apixaban, and recently diagnosis carcinomatosis of unknown primary apparently was transferred to [facility] from this hospital on 24 January with pericardial effusion and cardiac tamponade. At [facility] he was diagnosed with metastatic cancer of unknown primary. He underwent pericardial window on 01/28 and also now has a pleural catheter placed on the left side for chylothorax. He was ruled out for lymphoma. 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 His condition was not improving and attending physician at [facility] was discussing with the patientand \the family members regarding the prognosis. Lately he was requiring more oxygen to maintain saturation and going in and out of tachycardia more than 130s to 150s. He has been put on DNR and after discussion with the family members he was transferred to [facility] with continued supportive care of IV antibiotic and pain medications. He wanted to be closer to his family members. If his conditions gets worse we will not pursue any further escalation of care he will be placed for comfort care only.This was discussed with the patient and the family members by the attending in [facility] and also by me with the patient. Admission Exam Per Admitting Provider Physical Exam: Lying in bed with acute distress due to pain in the chest and also at the chest tube site Constitutional: well developed, well nourished, + ill appearing, + well hydrated and + obese Eyes: PERRL, conjunctivae normal, anicteric sclerae ENMT: external ear and nose normal, oropharynx normal Neck: trachea midline, no thyromegaly Respiratory: + respiratory distress Auscultation: + diminished lung sounds, + crackles (left side) and + wheezes (Yeah specially ifright side) Cardiovascular: Rate/Rhythm: regular rate, regular rhythm and + tachycardic Heart Sounds: normal S1 and normal S2; no murmur Extremities: + edema (Bilateral leg edema 1+) Gastrointestinal (Abdomen): Inspection/Auscultation: + abdomen distended and normal bowel sounds Percussion/Palpation: + abdomen tender and abdomen soft Musculoskeletal: No acute arthritis involving any joint Neurologic: normal touch/pain/proprioception and moves all extremities; no focal motor deficits Discharge Exam General- oriented x 3, not in distress, speaks in sentences with no effort or accessory muscle use Eyes- anicteric Neck- no JVD Lungs- R_ clear breath sounds L- pleurex cath in place; diminished breath sounds at the base Heart- normal rate, regular rhythm; no murmurs Abdomen- normal bowel sounds, nondistended, soft, nontender Extremities- trace pretibial edema, no calf tenderness Neuro- alert, oriented x 3; no gross focal neurologic deficits Skin- warm & dry Updated Medication List Medication Instructions Recorded Confirmed Type pravastatin 20 mg tablet 20 mg PO QAM 05/17/22 01/22/25 History metformin 500 mg tablet,extended 500 mg PO BIDM 05/11/24 01/22/25 History release 24 hr acetaminophen 500 mg tablet 1,000 mg PO Q6H PRN PAIN/FEVER 08/20/24 01/22/25 History (Tylenol Extra Strength) omeprazole 20 mg capsule,delayed 20 mg PO QAM 11/19/24 01/22/25 History release apixaban 5 mg tablet (Eliquis) 5 mg PO BID 12/27/24 01/22/25 History insulin glargine U-300 conc 300 50 unit subcut HS 12/27/24 01/22/25 History unit/mL (3 mL) subcutaneous pen (Toujeo Max U-300 SoloStar) codeine 10 mg-guaifenesin 100 mg/5 5 ml PO Q6H PRN COUGH/PAIN 01/22/25 01/22/25 History mL oral liquid oxycodone-acetaminophen 5 mg-325 1 tab PO Q6H PRN Pain, Severe 01/22/25 01/22/25 History mg tablet colchicine 0.6 mg tablet (Colcrys) 0.6 mg PO BID 30 days #60 tabs 02/18/25 Rx dexamethasone 4 mg tablet 4 mg PO DAILYBB 30 days #30 tabs 02/18/25 Rx hydrocodone-homatropine 5 mg-1.5 5 ml PO Q6H PRN cough #50 mL 02/18/25 Rx mg/5 mL oral solution (Hydromet) hydromorphone 1 mg/mL oral liquid 1 mg PO Q4H PRN severe pain (scale 02/18/25 Rx (Dilaudid) score 7-10) #50 mL ipratropium 0.5 mg-albuterol 3 mg 3 ml NEB Q6R PRN shortness of 02/18/25 Rx (2.5 mg base)/3 mL nebulization breath or wheezing #30 mL soln oxycodone-acetaminophen 10 mg-325 1 tab PO Q4H PRN moderate to 02/18/25 Rx mg tablet severe pain #20 tabs polyethylene glycol 3350 17 gram 17 g PO DAILY PRN constipation #15 02/18/25 Rx oral powder packet (Miralax) ea pregabalin 75 mg capsule (Lyrica) 75 mg PO TID 30 days #90 caps 02/18/25 Rx sennosides 8.6 mg tablet (Senna 8.6 mg PO QAM 30 days #30 tabs 02/18/25 Rx Lax) Hospital Stay Data Diagnostic Imagining Performed Laboratory Results WBC 14.39 K/ul (4.8-10.8) H 02/18/25 06:32 RBC 4.06 M/uL (4.70-6.10) L 02/18/25 06:32 Hgb 8.2 g/dL (14.0-18.0) L 02/18/25 06:32 Hct 29.7 % (42.0-52.0) L 02/18/25 06:32 MCV 73.2 fL (80.0-100.0) L 02/18/25 06:32 MCH 20.2 pg (25.0-34.0) L 02/18/25 06:32 MCHC 27.6 g/dL (32.0-36.0) L 02/18/25 06:32 RDW Std Deviation 58.2 fL (36.4-46.3) H 02/18/25 06:32 RDW Coeff of Cheng 22.7 % (11.5-14.5) H 02/18/25 06:32 Plt Count 857 K/uL (130-400) H 02/18/25 06:32 MPV 8.1 fL (9.4-12.4) L 02/18/25 06:32 Immature Gran % (Auto) 1.0 % 02/15/25 05:59 Neut % (Auto) 85.4 % 02/15/25 05:59 Lymph % (Auto) 5.0 % 02/15/25 05:59 [place] % (Auto) 8.4 % 02/15/25 05:59 Eos % (Auto) 0.1 % 02/15/25 05:59 Baso % (Auto) 0.1 % 02/15/25 05:59 Neut # (Auto) 12.09 K/uL (1.40-6.50) H 02/15/25 05:59 Lymph # (Auto) 0.71 K/uL (1.20-3.40) L 02/15/25 05:59 [place] # (Auto) 1.19 K/uL (0.11-0.59) H 02/15/25 05:59 Eos # (Auto) 0.01 K/uL (0.00-0.50) 02/15/25 05:59 Baso # (Auto) 0.02 K/uL (0.00-0.20) 02/15/25 05:59 Immature Gran # (Auto) 0.14 K/uL (0.01-0.20) 02/15/25 05:59 Absolute Nucleated RBC 0.02 K/uL (0.00-0.12) 02/18/25 06:32 Nucleated RBC % (auto) 0.1 % 02/18/25 06:32 Polychromasia 2+ 02/15/25 05:59 Anisocytosis Present 02/15/25 05:59 Sodium 132 mmol/L (136-145) L 02/18/25 06:32 Potassium 3.7 mmol/L (3.5-5.1) 02/18/25 06:32 Chloride 92 mmol/L (98-107) L 02/18/25 06:32 Carbon Dioxide 34 mmol/L (21-32) H 02/18/25 06:32 Anion Gap 6 (3-11) 02/18/25 06:32 BUN 14 mg/dl (6-23) 02/18/25 06:32 Creatinine 0.45 mg/dl (0.6-1.4) L 02/18/25 06:32 Est Cr Clr Drug Dosing Not Reportable 02/18/25 06:32 eGFR 130.69 02/18/25 06:32 BUN/Creatinine Ratio 31.1 (10-20) H 02/18/25 06:32 Glucose 154 mg/dl (70-99(Fasting)) H 02/18/25 06:32 POC Glucose 179 mg/dl (70-99) H 02/18/25 11:45 Calcium 8.6 mg/dl (8.6-10.3) 02/18/25 06:32 Phosphorus 3.8 mg/dl (2.5-4.9) 02/17/25 05:48 Magnesium 2.2 mg/dl (1.7-2.4) 02/17/25 05:48 Total Bilirubin 0.1 mg/dl (0.2-1.0) L 02/18/25 06:32 AST 11 U/L (13-39) L 02/18/25 06:32 ALT 9 U/L (7-52) 02/18/25 06:32 Alkaline Phosphatase 98 U/L (34-104) 02/18/25 06:32 Lactate Dehydrogenase 319 U/L (86-244) H 02/15/25 05:59 C-Reactive Protein 31.97 mg/dl (0-0.5) H 02/15/25 05:59 Total Protein 7.3 gm/dl (6.0-8.3) 02/18/25 06:32 Albumin 2.2 gm/dl (3.4-5.0) L 02/18/25 06:32 Globulin 5.1 gm/dl (2.5-4.0) H 02/18/25 06:32 Albumin/Globulin Ratio 0.4 (0.9-2) L 02/18/25 06:32 Procalcitonin 0.25 ng/ml (0-0.5) 02/17/25 05:48 Pending Results Patient Have Any Pending Studies at Discharge: No Discharge Instructions Given to Patient (Per Discharging Provider) PLEASE REFER TO YOUR NEW MEDICATION LIST AND FOLLOW INSTRUCTIONS CAREFULLY. Always take medications as per directions. Pleurex catheter needs to be drained every Mon-Wed-Fri. Your care will be continued by the hospice care team upon returning home. Total Time Total Time Spent Total Time Spent (In Minutes): 45 minutes
== END 2025-02-18 15:32 | disposition hospice, home (50) | DRG 843 ==
LOC: 3E 17:30 → SUATTDRO 17:30